=== PATIENT | female | born 1995 | race Two or more races ===

== ENCOUNTER 2023-03-04 15:06 | Emergency (ER) | payer BC, SELFPAY ==
[2023-03-04 15:12] VITALS: BP 124/90; PULSE 102; RESP 20; TEMP 37.2; O2SAT 99; BMI 25.2
--- NOTE | 2023-03-04 15:34 | US_ITS ---
[address] [address] Patient Name: LILLI COSBY MRN: [id number] date: 1995 Sex: F Assigned Patient Location: ER Current Patient Location: ER Accession/Order Number: [id number] Exam Date: 03/04/2023 16:00 Report Date: 03/04/2023 16:40 At the request of: DION POSADA Procedure: US OB transvaginal EXAMINATION: US OB transvaginal HISTORY: bleeding COMPARISON: No relevant comparison available. FINDINGS: Najera intrauterine gestation Gestational sac: 8.4 mm CRL: 2.0 mm, 5 weeks 5 days Yolk sac: 2.5 mm Heart rate: 104 bpm Uterus: Normal, anteverted Cervix: Closed, 4.8 cm The right ovary is normal measuring 1.9 x 2.1 x 1.3 cm. The left ovary is normal measuring 3.5 x 1.6 x 2.0 cm. Clinical age: 6 weeks 1 day Clinical MELLY: 10/27/2023 Ultrasound age: 5 weeks 5 days Ultrasound MELLY: 10/30/2023 US/US OB transvaginal IMPRESSION: Viable najera intrauterine gestation measuring 5 weeks 5 days Electronically authenticated by: MARY CARMEN KAUFMAN Date: 03/04/2023 16:40
[2023-03-04 15:36] LABS: Bilirubin Urine NEGATIVE (NEGATIVE); Blood Urine MODERATE (NEGATIVE); Clarity Urine CLEAR (CLEAR); Color Urine LT. YELLOW (YELLOW); Glucose Urine UA NEGATIVE (NEGATIVE); Ketones Urine NEGATIVE (NEGATIVE); Leukocyte Esterase Urine SMALL (NEGATIVE); Nitrite Urine NEGATIVE (NEGATIVE); Protein Urine NEGATIVE (NEG/TRACE); Specific Gravity Urine <=1.005 (1.005-1.025); Urobilinogen Urine 0.2 EU/dL (0.2-1.0); pH Urine 6.5 (5.0-9.0)
--- NOTE | 2023-03-04 15:36 | ED.PREGNANC1 ---
HPI - General Chief complaint: Urogenital-Female Stated complaint: BLEED Time Seen by Provider: 03/04/23 15:27 Source: patient Mode of arrival: walk-in Limitations: no limitations History of Present Illness HPI Narrative: 28-year-old female who states that she is 6 weeks as confirmed by home test presents for bloody streaks that she noticed on the toilet paper when she used the restroom today. She has not noticed any blood outside of this. She noticed some lower abdominal cramping earlier today, but this has resolved. Denies risk of STD. Denies back pain, dysuria, n/v Related Data Home Medications Medication Instructions Recorded Confirmed levothyroxine 75 mcg capsule 75 mcg PO DAILY 03/04/23 03/04/23 Allergies Allergy/AdvReac Type Severity Reaction Status Date / Time No Known Drug Allergies Allergy Verified 03/04/23 15:10 Review of Systems ROS Status of ROS 10 or more systems reviewed and unremarkable except as noted in history and below PFSH PFSH Social History Smoking status: Never smoker Exam Narrative Exam Narrative: General: A&Ox3, no distress, talking in full an complete sentences skin: warm, dry, intact head: normocephalic, atraumatic eyes: EOMI nose: nares patent neck: supple, trachea midline respiratory: non-labored extremities: FROM x 4, strength +5/5 abd: soft, NT spine: NT, normal ROM, no step offs neuro: A&Ox3 psych: appropriate mood and affect, cooperative Constitutional Vital Signs, click to edit/add: Last Vital Signs Temp 99 F 03/04/23 15:12 Pulse 102 H 03/04/23 15:12 Resp 20 03/04/23 15:12 BP 124/90 03/04/23 15:12 Pulse Ox 99 03/04/23 15:12 O2 Del Method Room Air 03/04/23 15:12 Course Vital Signs Vital signs: Vital Signs Temperature 99 F 03/04/23 15:12 Pulse Rate 102 H 03/04/23 15:12 Respiratory Rate 20 03/04/23 15:12 Blood Pressure 124/90 03/04/23 15:12 Pulse Oximetry 99 03/04/23 15:12 Oxygen Delivery Method Room Air 03/04/23 15:12 Temperature 99 F 03/04/23 15:12 Pulse Rate 102 H 03/04/23 15:12 Respiratory Rate 20 03/04/23 15:12 Blood Pressure 124/90 03/04/23 15:12 Pulse Oximetry 99 03/04/23 15:12 Oxygen Delivery Method Room Air 03/04/23 15:12 MDM - OB/Uterine Contractions MDM Narrative Medical decision making narrative: No significant lab abnormalities. UA positive for blood. Negative for UTI and does appear contaminated. Blood type O positive. Single intrauterine measuring 5 weeks and 5 days with a heart rate of 104. She has appoint with her [employer] tomorrow. Afebrile, not tachypneic, not tachycardic, not hypoxic, non toxic appearing and ambulating at baseline and hemodynamically stable to be d/c. answered all questions. pt in agreement with tx. educated when to return to ER. Lab Data Labs: Lab Results 03/04/23 03/04/23 03/04/23 Range/Units 15:22 15:31 15:45 WBC 7.8 (4.0-11.0) 10^3/uL RBC 4.60 (4.20-5.40) 10^6/uL Hgb 13.5 (12.0-16.0) g/dL Hct 41.3 (36.0-48.0) % MCV 89.8 (81.0-99.0) fL MCH 29.3 (26.7-34.0) pg MCHC 32.7 (29.9-35.2) g/dL RDW 14.0 (11.0-15.0) % Plt Count 313 (150-450) 10^3/uL MPV 9.3 L (9.5-13.5) fL Neut % (Auto) 67.2 (43.0-75.0) % Lymph % (Auto) 21.2 (20.5-60.0) % [place] % (Auto) 9.6 (1.7-12.0) % Eos % (Auto) 1.4 (0.9-7.0) % Baso % (Auto) 0.3 (0.2-2.0) % Neut # (Auto) 5.3 (1.4-6.5) 10^3/uL Lymph # (Auto) 1.7 (1.2-3.8) 10^3/uL [place] # (Auto) 0.8 (0.3-0.8) 10^3/uL Eos # (Auto) 0.1 (0.0-0.7) 10^3/uL Baso # (Auto) 0.0 (0.0-0.1) 10^3/uL Abs Immat Gran (auto) 0.02 (0.00-0.03) 10^3/uL Imm/Tot Granulo (auto) 0.3 (0.0-0.5) % Sodium 138 (136-145) mmol/L Potassium 3.6 (3.5-5.1) mmol/L Chloride 103 (98-107) mmol/L Carbon Dioxide 24.2 (21.0-32.0) mmol/L Anion Gap 14.4 BUN 8.0 (7.0-18.0) mg/dL Creatinine 0.62 (0.55-1.02) mg/dL Est GFR ( Amer) >60 (>=60) Est GFR (Non-Af Amer) >60 (>=60) BUN/Creatinine Ratio 12.9 Glucose 92 (74-106) mg/dL Calcium 8.7 (8.5-10.1) mg/dL Magnesium 2.2 (1.8-2.4) mg/dL Total Bilirubin 0.3 (0.2-1.0) mg/dL AST 14 L (15-37) U/L ALT 19 (14-59) U/L Alkaline Phosphatase 100 (46-116) U/L Total Protein 8.1 (6.4-8.2) g/dL Albumin 3.9 (3.4-5.0) g/dL Globulin 4.2 g/dL Albumin/Globulin Ratio 0.9 HCG, Quant 9525 mIU/mL Urine Color Lt. yellow (YELLOW) Urine Clarity Clear (CLEAR) Urine pH 6.5 (5.0-9.0) Ur Specific [place] <=1.005 A (1.005-1.025) Urine Protein Negative (NEG/TRACE) mg/dL Urine Glucose (UA) Negative (NEGATIVE) mg/dL Urine Ketones Negative (NEGATIVE) mg/dL Urine Occult Blood Moderate A (NEGATIVE) Urine Nitrite Negative (NEGATIVE) Urine Bilirubin Negative (NEGATIVE) Urine Urobilinogen 0.2 (0.2-1.0) EU/dL Ur Leukocyte Esterase Small A (NEGATIVE) Urine RBC 2-5 A (0-2) #/HPF Urine WBC 5-10 A (NONE SEEN) #/HPF Ur Squamous Epith Cells Moderate A (NONE/RARE) #/LPF Urine Crystals None seen (None Seen) #/HPF Urine Bacteria Trace A (NONE SEEN) #/HPF Urine Casts None seen (NONE SEEN) #/LPF Urine Mucus None seen (NONE SEEN) Ur Culture Indicated? Yes Urine HCG, Qual Positive A (NEGATIVE) Blood Type O Positive Discharge Plan Discharge Chief Complaint: Urogenital-Female Clinical Impression: Vaginal bleeding during Patient Disposition: Home, Self-Care Time of Disposition Decision: 16:46 Condition: Good Mode of Transportation: Private Vehicle Prescriptions / Home Meds: No Action levothyroxine 75 mcg capsule 75 mcg PO DAILY Instructions: Non-Threatening First Trimester Vaginal Bleed (ED) Stand Alone Forms: Portal Instructions Referrals: Physician,Non-Staff, MD [Primary Care Provider] - 1 week
[2023-03-04 15:37] LABS: Urine Microscopic Indicated YES
[2023-03-04 15:37] LABS: HCG Qualitative Urine* POSITIVE (NEGATIVE)
[2023-03-04 15:45] LABS: Bacteria Urine TRACE #/HPF (NONE SEEN); Crystals Seen? None Seen #/HPF (None Seen); Mucus Urine NONE SEEN (NONE SEEN); Squamous Epithelial Cell Urine MODERATE #/LPF (NONE/RARE)
[2023-03-04 15:46] LABS: Cast Seen? NONE SEEN #/LPF (NONE SEEN); Urine Culture Indicated YES
[2023-03-04 15:53] LABS: Basophils Percent Auto 0.3 % (0.2-2.0); Eosinophils Absolute Auto 0.1 10^3/uL (0.0-0.7); Eosinophils Percent Auto 1.4 % (0.9-7.0); Hematocrit 41.3 % (36.0-48.0); Hemoglobin 13.5 g/dL (12.0-16.0); Immature Granulocytes Abs Auto 0.02 10^3/uL (0.00-0.03); Immature Granulocytes Pct Auto 0.3 % (0.0-0.5); Lymphocytes Absolute Auto 1.7 10^3/uL (1.2-3.8); Lymphocytes Percent Auto 21.2 % (20.5-60.0); Mean Corpuscular HGB Conc 32.7 g/dL (29.9-35.2); Mean Corpuscular Hemoglobin 29.3 pg (26.7-34.0); Mean Corpuscular Volume 89.8 fL (81.0-99.0); Mean Platelet Volume 9.3 fL (9.5-13.5); Monocytes Absolute Auto 0.8 10^3/uL (0.3-0.8); Monocytes Percent Auto 9.6 % (1.7-12.0); Neutrophils Absolute Auto 5.3 10^3/uL (1.4-6.5); Neutrophils Percent Auto 67.2 % (43.0-75.0); Platelet Count 313 10^3/uL (150-450); White Blood Count 7.8 10^3/uL (4.0-11.0)
[2023-03-04 16:07] LABS: Alanine Aminotransferase 19 U/L (14-59); Albumin Globulin Ratio 0.9; Albumin Level 3.9 g/dL (3.4-5.0); Alkaline Phosphatase 100 U/L (46-116); Anion Gap 14.4; Aspartate Amino Transferase 14 U/L (15-37); BUN Creatinine Ratio 12.9; Bilirubin Total 0.3 mg/dL (0.2-1.0); Calcium 8.7 mg/dL (8.5-10.1); Carbon Dioxide 24.2 mmol/L (21.0-32.0); Chloride 103 mmol/L (98-107); Estimated GFR (African America >60 (>=60); Estimated GFR (Non-African Ame >60 (>=60); Globulin 4.2 g/dL; Glucose 92 mg/dL (74-106); Magnesium 2.2 mg/dL (1.8-2.4); Potassium 3.6 mmol/L (3.5-5.1); Sodium 138 mmol/L (136-145); Total Protein 8.1 g/dL (6.4-8.2)
[2023-03-04 16:29] LABS: HCG Quantitative 9525 mIU/mL
== END 2023-03-04 17:42 | disposition home or self-care (01) ==
PROVIDERS: Physician Assistant; Emergency Provider Emergency Medicine
DX: O20.9 Hemorrhage in early pregnancy, unspecified (principal)
CPT/HCPCS: 36415; 76817; 80053; 81001; 83735; 84702; 84703; 85025; 86900; 86901; 87086; 99285

== ENCOUNTER 2023-08-04 20:31 | Observation (INO) | payer BC, SELFPAY ==
[2023-08-04 21:05] LABS: Bilirubin Urine NEGATIVE (NEGATIVE); Blood Urine TRACE-I (NEGATIVE); Clarity Urine CLEAR (CLEAR); Color Urine YELLOW (YELLOW); Glucose Urine UA NEGATIVE (NEGATIVE); Ketones Urine 15 mg/dL (NEGATIVE); Leukocyte Esterase Urine SMALL (NEGATIVE); Nitrite Urine NEGATIVE (NEGATIVE); Protein Urine TRACE mg/dL (NEG/TRACE); Specific Gravity Urine 1.025 (1.005-1.025)
[2023-08-04 21:06] LABS: Urine Microscopic Indicated YES
[2023-08-04 21:07] VITALS: BP 113/75; PULSE 112
[2023-08-04 21:25] LABS: Bacteria Urine NONE SEEN #/HPF (NONE SEEN); Cast Seen? NONE SEEN #/LPF (NONE SEEN); Crystals Seen? None Seen #/HPF (None Seen); Mucus Urine SMALL (NONE SEEN); RBC Urine 0-2 #/HPF (0-2); Squamous Epithelial Cell Urine FEW #/LPF (NONE/RARE); WBC Urine 0-2 #/HPF (NONE SEEN)
--- NOTE | 2023-08-04 21:36 | US_ITS ---
[address] [address] Patient Name: LILLI COSBY MRN: [id number] date: 1995 Sex: F Assigned Patient Location: [facility] Current Patient Location: [facility] Accession/Order Number: [id number] Exam Date: 08/04/2023 22:20 Report Date: 08/04/2023 22:49 At the request of: GARRETT MAHMOOD Procedure: US OB cervical length EXAM: US OB cervical length HISTORY: contractions COMPARISON: None. TECHNIQUE: Transvaginal ultrasound of the gravid uterus was performed using Doppler. FINDINGS: Transabdominal ultrasound demonstrates a gravid uterus with the fetus in cephalic position. The cervix is closed measuring up to 4.8 cm. The placental tip is approximately 3.1 cm from the internal cervical os. Of note, measurements were not obtained. cardiac activity is noted at a rate of 132 beats per minute. US/US OB cervical length IMPRESSION: 1. Single live intrauterine gestation in cephalic position with a heart rate 132 bpm. Electronically authenticated by: Ana CAMACHO Date: 08/04/2023 22:49
[2023-08-04 22:18] LABS: Basophils Percent Auto 0.3 % (0.2-2.0); Eosinophils Percent Auto 0.2 % (0.9-7.0); Hematocrit 38.8 % (36.0-48.0); Hemoglobin 11.7 g/dL (12.0-16.0); Immature Granulocytes Abs Auto 0.04 10^3/uL (0.00-0.03); Immature Granulocytes Pct Auto 0.4 % (0.0-0.5); Lymphocytes Absolute Auto 1.2 10^3/uL (1.2-3.8); Lymphocytes Percent Auto 11.6 % (20.5-60.0); Mean Corpuscular HGB Conc 30.2 g/dL (29.9-35.2); Mean Corpuscular Hemoglobin 27.9 pg (26.7-34.0); Mean Corpuscular Volume 92.4 fL (81.0-99.0); Mean Platelet Volume 9.1 fL (9.5-13.5); Monocytes Absolute Auto 0.8 10^3/uL (0.3-0.8); Monocytes Percent Auto 7.9 % (1.7-12.0); Neutrophils Absolute Auto 8.4 10^3/uL (1.4-6.5); Neutrophils Percent Auto 79.6 % (43.0-75.0); Platelet Count 347 10^3/uL (150-450); Red Cell Distribution Width 13.8 % (11.0-15.0); White Blood Count 10.5 10^3/uL (4.0-11.0)
[2023-08-04 22:34] VITALS: BP 113/75
[2023-08-04] MEDS: NIFEdipine 10 MG CAPSULE 20 MG PO (22:34)
[2023-08-04] MEDS: 0.9 % SODIUM CHLORIDE 1,000 ML 1000 ML IV (22:52)
[2023-08-04 23:11] VITALS: BP 105/56; PULSE 136
[2023-08-04] MEDS: 0.9 % SODIUM CHLORIDE 1,000 ML 150 ML IV (23:52)
[2023-08-05 00:53] VITALS: BP 101/60; PULSE 112; TEMP 35.9
[2023-08-05] MEDS: 0.9 % SODIUM CHLORIDE 1,000 ML 150 ML IV (06:25)
[2023-08-05 06:35] VITALS: BP 97/56; PULSE 92
[2023-08-05 07:47] VITALS: RESP 16; TEMP 36.4
[2023-08-05 07:57] VITALS: BP 90/54; PULSE 85
[2023-08-05 08:02] VITALS: RESP 16; TEMP 36.4
== END 2023-08-05 09:51 | disposition home or self-care (01) ==
PROVIDERS: Admitting Provider Obstetrics & Gynecology; Visit Provider Obstetrics & Gynecology
DX: O47.9 False labor, unspecified (principal); O26.899 Other specified pregnancy related conditions, unspecified trimester; R31.9 Hematuria, unspecified; M54.9 Dorsalgia, unspecified; Z3A.00 Weeks of gestation of pregnancy not specified
CPT/HCPCS: 36415; 59025; 76817; 81001; 85025; G0378; G0379

== ENCOUNTER 2023-08-21 07:15 | Outpatient (OUT) | payer BC, SELFPAY ==
--- OUTSIDE RECORDS SUMMARY | 2023-08-21 07:35 | XMS_ITS | CCD ---
Author Name Unknown Address [address] [place], [place] [address] Organization [facility] Care Team Providers Care Plant Operator/Shift Supervisor Name Role Phone ANGE LOUIS Referring Unavailable RUMSCHLAG, MANASA K Primary Care Unavailable GARRETT GODOY Referring Unavailable RUMSCHLAG, MANASA K Primary Care Unavailable BRYAN LANGFORD Referring Unavailable RUMSCHLAG, MANASA K Primary Care Unavailable Rumschlag Manasa PATIÑO Primary Care Provider GARRETT GODOY Attending Unavailable ERICKA TINEO Attending Unavailable Medications Current Medications Medication Drug Class(es) Dates Sig (Normalized) Sig (Original) levothyroxine sodium 0.075 mg oral tablet (3 sources) l-Thyroxine take 1 tablet by mouth before mealtime levothyroxine (Synthroid, Levoxyl) 75 MCG tablet Take 75 mcg by mouth in the morning. Take before meals. 0 Active metoclopramide 10 mg oral tablet (3 sources) Dopamine-2 Receptor Antagonist End: 08-06-2023 take 1 tablet by mouth in the morning, then take 1 tablet by mouth in the evening, then take 1 tablet by mouth at bedtime metoclopramide (Reglan) 10 MG tablet Take 10 mg by mouth in the morning and 10 mg in the evening and 10 mg before bedtime. 0 08/06/2023 Discontinued (Therapy completed) Gxkqhxgq-Juq-Ek-FA ( 1 + IRON PO) (3 sources) Aijbsqyb-Frx-Mm-FA ( 1 + IRON PO) Take by mouth 0 Active Problems Problem Classification Problem Date Documented Date Episodic/Chronic Complications of surgical procedures or medical care (1 source) Postprocedural hypothyroidism; Translations: [Postprocedural hypothyroidism] Onset: 08-03-2023 Chronic Other complications of (1 source) Endocrine, nutritional and metabolic diseases complicating , second trimester; Translations: [Endocrine, nutritional and metabolic diseases complicating , second trimester] Onset: 08-03-2023 Episodic Other complications of (1 source) Endocrine, nutritional and metabolic diseases complicating , unspecified trimester; Translations: [Endocrine, nutritional and metabolic diseases complicating , unspecified trimester] Onset: 07-17-2023 Episodic Other complications of (1 source) Supervision of other high risk pregnancies, unspecified trimester; Translations: [Supervision of other high risk pregnancies, unspecified trimester] Onset: 06-16-2023 Episodic Other female genital disorders (2 sources) History of premature labor; Translations: [Personal history of pre-term labor] 08-06-2023 Episodic Other and delivery including normal (2 sources) Third trimester ; Translations: [Encounter for supervision of normal , unspecified, third trimester] 08-03-2023 Episodic Other screening for suspected conditions (not mental disorders or infectious disease) (3 sources) Encounter for screening for diabetes mellitus; Translations: [Encounter for other specified screening] Onset: 06-16-2023 Episodic Previous (1 source) Maternal care for unspecified type scar from previous delivery; Translations: [Maternal care for unspecified type scar from previous delivery] Onset: 06-16-2023 Episodic Thyroid disorders (1 source) Hypothyroidism, unspecified; Translations: [Hypothyroidism, unspecified] Onset: 07-17-2023 Chronic Results Test Name Value Interpretation Reference Range Facility Urinalysis macro (dipstick) panel (U)on 08-06-2023 Bilirubin, UA Negative Negative - 4(70) +++ mg/dL [facility] Blood, UA Positive Negative - 50 Efren/mcL [facility] Clarity, UA Clear [facility] Color, UA Yellow [facility] Glucose, UA Negative Negative - 1999(110) ++++ mg/dL [facility] Interpretation and review of laboratory results Abnormal [facility] Ketones, UA Negative Negative - 160(16) ++++ mg/dL [facility] Leukocytes, UA Positive Negative - 500+++ Luci/mcL [facility] Nitrite, UA Negative Negative - Positive [facility] pH, UA 6.5 5 - 9 [facility] Protein, UA Positive Negative - 1999(20) ++++ mg/dL [facility] Spec Grav, UA 1.030 1 - 1.03 [facility] Urobilinogen, UA 1.0 0.2 - 12 mg/dL [facility] (CLEAN/CATCH) UNEMPLOYMENT EXAMINER/JING RO IF IND.on 08-04-2023 BILIRUBIN URINE Negative [facility]GATIVE [facility] BLOOD URINE TRACE-I NEGATIVE [facility] Clarity (U) CLEAR CLEAR [facility] Color (U) YELLOW YELLOW [facility] GLUCOSE URINE UA Negative NEGATIVE mg/dL [facility] Interpretation and review of laboratory results Abnormal [facility] Healthcare Ketones Ql (U) 15 mg/dL Abnormal NEGATIVE [facility] Healt hcare Leukocyte esterase Test strip Ql (U) SMALL Abnormal NEGATIVE [facility] NITRITE URINE Negative NEGATIVE [facility] Health care pH (U) 6.0 [pH] 5.0 - 9.0 [facility] PROTEIN URINE TRACE NEG/TRACE mg/dL [facility] Healthcare SPECIFIC GRAVITY URINE 1.025 1.005 - 1.025 [facility] URINE MICROSCOPIC INDICATED YES [facility] UROBILINOGEN URINE 1.0 EU/dL 0.2 - 1.0 EU/dL [facility] Healthcar e FREE T3on 08-03-2023 Free T3 [Mass/Vol] 3.27 pg/mL Normal 2.50-3.90 [facility] Comment on above: Performed By: #### T KIRTI, 0 #### [facility] ([id number]) [address], [address] [place] [address] THYROID PROFILEon 08-03-2023 Free T4 [Mass/Vol] 0.66 ng/dL Normal 0.61-1.60 [facility] Comment on above: Performed By: #### T KIRTI, 3050 #### [facility] ([id number]) [address], [address] [place] [address] TSH 1.74 uIU/mL Normal 0.49-4.67 [facility] Comment on above: Performed By: #### T KIRTI, 0 #### [facility] ([id number]) [address], [address] [place] [address] CBC AND AUTO DIFFon 07-17-19 ABSOLUTE BASOPHIL 0.0 X10E9/L Normal 0.0-0.2 [facility] Comment on above: Performed By: #### Nilam BAILEY, 1504-0, 3016-3 #### [facility] ([id number]) [address], [address] [place] [address] ABSOLUTE NEUTROPHIL 7.1 X10E9/L High 1.5-6.6 [facility] Comment on above: Performed By: #### Nilam BAILEY, 1504-0, 3016-3 #### [facility] ([id number]) [address], [address] [place] [address] Basophils/100 WBC (Bld) 0.3 % Normal [facility] Comment on above: Performed By: #### Nilam BAILEY, 1504-0, 3016-3 #### [facility] ([id number]) [address], [address] [place] [address] Eosinophils (Bld) [#/Vol] 0.1 10*3/uL Normal 0.0-0.4 [facility] Comment on above: Performed By: #### Nilam BAILEY, 1504-0, 3016-3 #### [facility] ([id number]) [address], [address] [place] [address] Eosinophils/100 WBC (Bld) 1.0 % Normal [facility] Comment on above: Performed By: #### Nilam BAILEY, 1504-0, 3016-3 #### [facility] ([id number]) [address], [address] [place] [address] Erythrocyte distribution width (RBC) [Ratio] 14.1 % Normal 11.5-15.0 [facility] Comment on above: Performed By: #### Nilam BAILEY, 1504-0, 3016-3 #### [facility] ([id number]) [address], [address] [place] [address] Hematocrit (Bld) [Volume fraction] 34.5 % Low 35-47 [facility] Comment on above: Performed By: #### Nilam BAILEY, 1504-0, 3016-3 #### [facility] ([id number]) [address], [facility] [address] [place] [address] Hemoglobin (Bld) [Mass/Vol] 11.5 g/dL Low 11.7-15.5 [facility] Comment on above: Performed By: #### Nilam BAILEY, 1504-0, 3016-3 #### [facility] ([id number]) [address], [facility] [address] [place] [address] Lymphocytes (Bld) [#/Vol] 2.1 10*3/uL Normal 1.0-3.5 [facility] Comment on above: Performed By: #### Nilam BAILEY, 1504-0, 3016-3 #### [facility] ([id number]) [address], [facility] [address] [place] [address] Lymphocytes/100 WBC (Bld) 21.4 % Normal [facility] Comment on above: Performed By: #### Nilam BCA, 1504-0, 3016-3 #### [facility] ([id number]) [address], [facility] [address] [place] [address] MCH (RBC) [Entitic mass] 28.9 pg Normal 27-34 [facility] Comment on above: Performed By: #### Nilam BCA, 1504-0, 3016-3 #### [facility] ([id number]) [address], [facility] [address] [place] [address] MCHC (RBC) [Mass/Vol] 33.3 g/dL Normal 32-36 [facility] Comment on above: Performed By: #### Nilam BCA, 1504-0, 3016-3 #### [facility] ([id number]) [address], [address] [place] [address] MCV (RBC) [Entitic vol] 87 fL Normal 80-100 [facility] Comment on above: Performed By: #### Nilam BAILEY, 1504-0, 3016-3 #### [facility] ([id number]) [address], [address] [place] [address] Monocytes (Bld) [#/Vol] 0.6 10*3/uL Normal 0-0.9 [facility] Comment on above: Performed By: #### Nilam BAILEY, 1504-0, 3015-3 #### [facility] ([id number]) [address], [address] [place] [address] Monocytes/100 WBC (Bld) 6.1 % Normal [facility] Comment on above: Performed By: #### Nilam BAILEY, 1504-0, 3015-3 #### [facility] ([id number]) [address], [address] [place] [address] Neutrophils/100 WBC (Bld) 71.2 % Normal [facility] Comment on above: Performed By: #### Nilam BAILEY, 1504-0, 3015-3 #### [facility] ([id number]) [address], [address] [place] [address] Platelet mean volume (Bld) [Entitic vol] 7.8 fL Normal 7-12 [facility] Comment on above: Performed By: #### Nilam BAILEY, 1504-0, 3016-3 #### [facility] ([id number]) [address], [address] [place] [address] Platelets (Bld) [#/Vol] 374 10*3/uL Normal 150-450 [facility] Comment on above: Performed By: #### Nilam BAILEY, 1504-0, 3016-3 #### [facility] ([id number]) [address] [place] [address] RBC COUNT 3.97 X10E12/L Normal 3.80-5.20 [facility] Comment on above: Performed By: #### Nilam BAILEY, 1504-0, 3016-3 #### [facility] ([id number]) [address] [facility] [address] [place] [address] WBC (Bld) [#/Vol] 9.9 10*3/uL Normal 4.0-11.0 [facility] Comment on above: Performed By: #### Nilam BAILEY, 1504-0, 3016-3 #### [facility] ([id number]) [address] [facility] [address] [place] [address] Glucose 1 Hr post 50 g gluco se PO [Mass/Vol]on 07-17-2023 GLU 1H POST 50G LOAD 101 mg/dL Normal 65-139 [facility] Comment on above: Performed By: #### Nilam BAILEY, 1504-0, 3016-3 #### [facility] ([id number]) [address] [facility] [address] [place] [address] TSH Qnon 07-17-2023 TSH 2.24 uIU/mL Normal 0.49-4.67 [facility] Comment on above: Performed By: #### Nilam BAILEY, 1504-0, 3016-3 #### [facility] ([id number]) [address] [facility] [address] [place] [address] US thyroidon 02-14-2021 thyroid [facility] [place] [address] Ultrasound Report Signed Patient: Lilli Menendez MR#: [id number] 4 : 1995 Acct:[id number] Age/Sex: 26 / F ADM Date: 02/14/21 Loc: UL Room: Type: [facility] Attending Dr: Bryan Langford MD Ordering Provider: Bryan Langford MD Date of Service: 02/14/21 US/US thyroid: E89.0 Copies to: Bryan Langford MD THYROID ULTRASOUND CLINICAL DATA: History of hyperthyroidism and ablation COMPARISON: None The right thyroid lobe measures 4.6 x 1.2 x 0.9 cm. The left lobe measures 3.7 x 1.0 x 0.8 cm. The isthmus measures 2 - 3 mm. No discrete thyroid nodularity is seen. US/US thyroid IMPRESSION: Within normal limits Impression dictated by: Neisha Curry M.D.02/14/2021 2:49 PM Dictation Location: [place] [address] Tech: Ashley Dempsey Transcribed By: YANET 02/14/21 1449 Dictated By: Neisha Curry MD 02/14/21 1447 Signed By: 02/14/[address] [facility] Vital Signs Date Time Vital Sign Value Performing Clinician Faci lity 08-06-2023 09:41-0500 Body mass index (BMI) [Ratio] 28.93 kg/m2 Ericka VELARDE Work Phone: [facility] 08-06-2023 09:41-0500 Body weight 64.41 kg Ericka VELARDE Work Phone: [facility] 08-06-2023 09:41-0500 Diastolic blood pressure 74 mm[Hg] Ericka VELARDE Work Phone: [facility] 08-06-2023 09:41-0500 Systolic blood pressure 106 mm[Hg] Ericka VELARDE Work Phone: [facility] Healthcare Encounters Encounter Date Encounter Type Care Provider Facility Start: 08-06-2023 End: 08-06-2023 ambulatory ERICKA TINEO Not Available Start: 08-06-2023 End: 08-06-2023 flow sheet Ericka VELARDE Work Phone: [facility] OB Comment on above: Third trimester preg alea; History of labor Start: 08-04-2023 [facility] Result Encounter Garrett Jayne DO Work Phone: [facility] External Department Unsolicited Start: 08-04-2023 [facility] Result Encounter Garrett Jayne DO Work Phone: [facility] External Department Unsolicited Start: 08-03-2023 End: 08-04-2023 ambulatory BRYAN LANGFORD [facility] Start: 07-17-2023 End: 07-18-2023 ambulatory GARRETT GODOY [facility] Start: 07-09-2023 End: 07-09-2023 ambulatory GARRETT GODOY Not Available Start: 06-16-2023 End: 06-17-2023 ambulatory ABEER [facility] Procedures Date Procedure Procedure Detail Performing Clinician Start: 08-06-2023 Urnls dip stick/tabl et rgnt non-auto w/o micrscp Ericka VELARDE Work Phone: Start: 08-04-2023 [facility] UA (CLEAN/CATCH) UNEMPLOYMENT EXAMINER/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 Garrett Godoy DO Work Phone: Plan of Treatment Date Care Activity Detail Author Start: 08-20-2023 End: 08-20-2023 Patient encounter procedure 08/20/2023 10:50 AM EST Routine [facility] [address] [place] [id number] Garrett Godoy, DO [address] [place] [address] [facility] Start: 08-06-2023 End: 08-06-2024 US biophysical profile w non stress test US biophysical profile w non stress test Imaging Routine History of labor Expected: 08/06/2023 (Approximate), Expires: 08/06/2024 [facility] Comment on above: Expected: 08/06/2023 (Approximate), Expires: 08/06/2024 Start: 08-06-2023 End: 08-06-2024 US for US OB SCAN FOR GROWTH Imaging Routine History of labor Expected: 08/06/2023 (Approximate), Expires: 08/06/2024 [facility] Work Phone: Comment on above: Expected: 08/06/2023 (Approximate), Expires: 08/06/2024 Start: 08-06-2023 End: 08-06-2023 Patient encounter procedure 08/06/2023 9:30 AM EST Routine [facility] [address] [address] Ericka Tineo PA [address] [place] [address] Third trimester [facility] Comment on above: Third trimester preg alea Payers Date Payer Category Payer Unknown [id number] 2020 Unknown BCBS BCBS xxxxxx [id number] 2020-Present [phone] [address] [place] [address] [id number] 1995 Unknown [id number] 1995 Unknown [id number] 1995 Unknown [id number] 1995 Unknown [id number] 1996 Unknown [id number] Social History Date Type Detail Facility [facility] consumption [facility] Start: 02-03-2023 [facility] Start: 1995 Sex Assigned At Not on file [facility] Gender identity Not on file [facility] History of Present illness Narrative 08-06-2023 SYD Mercer - 08/06/2023 9:30 AM EST Note Date & Type Note Facility 08-06-2023 History of Presen t illness Narrative Reason for Appointment: Patient ID: Lilli Menendez is a 28 y.o. female who presents for Routine Visit Patient presents today for Return OB appointment. Current Medications: has a current medication list which includes the following prescription(s): levothyroxine and xksvhkdy-rib-wo-fa. Medical History: Active Ambulatory Problems Diagnosis Date Noted No Active Ambulatory Problems Resolved Ambulatory Problems Diagnosis Date Noted No Resolved Ambulatory Problems No Additional Past Medical History No family history on file. Social History Tobacco Use Smoking status: Not on file Smokeless tobacco: Not on file Substance Use Topics Alcohol use: Not on file Drug use: Not on file Past Surgical History: Procedure Laterality Date SECTION, CLASSIC 07/29/2019 No Known Allergies Review of Systems: Review of Systems Constitutional: Negative. HENT: Negative. Eyes: Negative. Respiratory: Negative. Cardiovascular: Negative. Gastrointestinal: Negative. Genitourinary: Negative. Musculoskeletal: Negative. Skin: Negative. Neurological: Negative. All other systems reviewed and are negative. Hematological: Negative. Endocrine: Negative. Allergic/Immunologic: Negative. Objective Physical Exam Constitutional: Appearance: Normal appearance. She is normal weight. HENT: Head: Normocephalic. Nose: Nose normal. Mouth/Throat: Mouth: Mucous membranes are moist. Cardiovascular: Rate and Rhythm: Normal rate. Pulses: Normal pulses. Pulmonary: Effort: Pulmonary effort is normal. Breath sounds: Normal breath sounds. Abdominal: General: Bowel sounds are normal. Palpations: Abdomen is soft. Musculoskeletal: General: Normal range of motion. Cervical back: Normal range of motion. Neurological: General: No focal deficit present. Mental Status: She is alert and oriented to person, place, and time. Skin: General: Skin is warm and dry. Psychiatric: Mood and Affect: Mood normal. Behavior: Behavior normal. Thought Content: Thought content normal. Judgment: Judgment normal. Vitals and nursing note reviewed. Exam conducted with a branch specialist present. Vitals: Estimated body mass index is 28.93 kg/m as calculated from the following: Height as of 07/07/23: 4' 10.75 . Weight as of this encounter: 142 lb. BP: 106/74 Patient's last menstrual period was 01/20/2023. Assessment/Plan Encounter Diagnoses Name Primary? Third trimester History of labor Patient presents today for a routine obstetrics appointment. Patient is currently 28w2d with a Estimated Date of Delivery: 10/27/23. Pt has history of labor at 32 weeks. We will give orders to give celestone at 30 weeks and start nst and bpp at 30 weeks. Pt seen by myself and DR Godoy, pt questions and concerns discussed. Pt doing well at this time and will return in 2 weeks. Patient presents today for a routine obstetrics appointment. Patient is currently 28w2d . Patient states she is doing well but has complaints of being tired due to current . Patient has verbalizes frequent movement. labor precautions was discussed/given and patient was instructed to perform kick counts three times a day. Follow Up: Patient is to return to office in 2 week for routine OB appointment. Documented by SYD Mercer on behalf of: SYD Mercer documented in this encounter [facility] Evaluation note Note Date & Type Note Facility Evaluation note Diagnosis Third trimester state, incidental History of labor documented in this encounter [facility] Summary Purpose Family History No Family History Records FoundNo Family History Records FoundNo Family History Records Found Advance Directives No Advanced Directives Records FoundNo Advanced Directives Records FoundNo Advanced Directives Records Found Additional Source Comments INFORMATION SOURCE (unrecogn ized section and content) DATE CREATED AUTHOR 07/15/2021 [facility] DATE CREATED AUTHOR AUTHOR'S ORGANIZ ATION 08/04/2023 [facility] DATE CREATED AUTHOR AUTHOR'S ORGANIZ ATION 08/08/2023 [facility] dical Specialists [facility] Care Teams (unrecognized sec tion and content) Plant Operator/Shift Supervisor Relationship Specialty Start Date End Date Manasa Soni DO [address] [place] [address] PCP - General Family Medicine 07/09/23 Plant Operator/Shift Supervisor Relationship Specialty Start Date End Date Manasa Soni DO [address] [place] [address] PCP - General Family Medicine 07/09/23 Reason for Visit (unrecogniz ed section and content) Reason Comments Routine Visit FOR RECORDS PERTAINING TO PATIENTS WHO ARE OR HAVE BEEN ENROLLED IN A CHEMICAL DEPENDENCY/SUBSTANCEABUSE PROGRAM, SOME INFORMATION MAY BE OMITTED. This clinical summary was aggregated from multiple sources. Caution should be exercised in using it in the provision of clinical care. This summary normalizes information from multiple sources, and as a consequence, information in this document may materially change the coding, format and clinical context of patient data. In addition, data may be omitted in some cases. CLINICAL DECISIONS SHOULD BE BASED ON THE PRIMARY CLINICAL RECORDS. [facility] [facility]. provides no warranty or guarantee of the accuracy or completeness of information in this document.
--- NOTE | 2023-08-21 11:16 | US_ITS ---
[address] [address] Patient Name: LILLI COSBY MRN: [id number] date: 1995 Sex: F Assigned Patient Location: [facility] Current Patient Location: [facility] Accession/Order Number: [id number] Exam Date: 08/21/2023 11:23 Report Date: 08/21/2023 12:36 At the request of: GARRETT MAHMOOD Procedure: US OB growth EXAMINATION: US OB growth HISTORY: HISTORY OF PRE TERM LABOR Z87.51 COMPARISON: No relevant comparison available. FINDINGS: Heart Rate: 148.4 bpm Amniotic Fluid Volume: 16.5 cm Number: 1.0 Position: Cephalic presentation, longitudinal lie Maximum Vertical Pocket: 5.5 cm cm 4.9 cm cm 4.9 cm cm 1.2 cm cm BIOMETRY: BPD: 7.7 cm cm; 30 weeks 6 days; 50% HC: 28.7 cmcm; 31 weeks 4 days , 46% AC: 26.3 cm cm; 30 weeks 3 days, 45% FL: 5.8 cm cm; 30 weeks 1 days; 29.6 % % EFW: 1584.2 grams, 3 lbs. 8 oz., 39% FL/AC: 22.0 FL/BPD: 75.2 HC/AC: 1.1 GESTATIONAL AGE: Age by EDC: 30 weeks 3 days MELLY by EDC: 10/27/2023 Age by US: 30 weeks 5 days MELLY by US: 10/25/2023 US/US OB growth IMPRESSION: Normal interval growth Electronically authenticated by: MARY CARMEN KAUFMAN Date: 08/21/2023 12:36
--- NOTE | 2023-08-21 11:16 | US_ITS ---
[address] [address] Patient Name: LILLI COSBY MRN: [id number] date: 1995 Sex: F Assigned Patient Location: [facility] Current Patient Location: [facility] Accession/Order Number: [id number] Exam Date: 08/21/2023 11:23 Report Date: 08/21/2023 12:35 At the request of: GARRETT MAHMOOD Procedure: US OB BPP w non-stress EXAMINATION: US OB BPP w non-stress HISTORY: HISTORY OF PRE TERM LABOR Z87.51 COMPARISON: No relevant comparison available. TECHNIQUE: Ultrasound biophysical profile was performed in the radiology department. non-reactive stress testing was performed by nursing staff in the birthing center. FINDINGS: BREATHING MOVEMENTS: 2.0 GROSS BODY MOVEMENTS: 2.0 TONE: 2.0 QUALITATIVE AMNIOTIC FLUID VOLUME: 2.0 PRESENTATION: CEPHALIC HEART RATE: 148.4 bpm H.B./min AMNIOTIC FLUID VOLUME: 16.5 cm cm GESTATIONAL AGE: 30 weeks 3 days CONCLUSION: Total biophysical profile score: 8.0 Electronically authenticated by: MARY CARMEN KAUFMAN Date: 08/21/2023 12:35
[2023-08-21 12:05] VITALS: BP 105/69; PULSE 89
[2023-08-21] MEDS: BETAMETHASONE ACE/BETAMETHASONE SOD PHOS 30 MG/5 ML 12 MG IM (12:44)
--- NOTE | 2023-08-21 12:51 | PC.NURSE ---
Celestone 12 mg IM to R gluteous, patient tolerated well, discharged home in stable condition
== END 2023-08-21 12:54 | disposition home or self-care (01) ==
LOC: US 07:33 → FBC 12:02
PROVIDERS: Visit Provider Obstetrics & Gynecology
DX: Z87.51 Personal history of pre-term labor (principal); Z3A.30 30 weeks gestation of pregnancy
CPT/HCPCS: 76816; 76818; J0702

== ENCOUNTER 2023-08-22 12:37 | Outpatient (OUT) | payer BC, SELFPAY ==
--- OUTSIDE RECORDS SUMMARY | 2023-08-22 12:40 | XMS_ITS | CCD ---
Author Name Unknown Address [address] [place], [place] [id number] Organization [facility] Care Team Providers Care Dope And Fabric Worker Name Role Phone ANGE LOUIS Referring Unavailable [...] before bedtime. 0 08/06/2023 Discontinued (Therapy completed) Zwmcktqe-Ems-Db-FA ( 1 + IRON PO) (3 sources) Lpuhluav-Std-Qh-FA ( 1 + IRON PO) Take by [...] UA Negative Negative - 4(70) +++ mg/dL [facility] Blood, UA Positive Negative - 50 Efren/mcL [facility] Clarity, UA Clear [facility], UA Yellow [facility] Glucose, UA Negative Negative - 1999(110) ++++ mg/dL [facility] Interpretation and review of laboratory results Abnormal [facility] Ketones, UA Negative Negative - 160(16) ++++ mg/dL [facility] Leukocytes, UA Positive Negative - 500+++ Luci/mcL [facility] Nitrite, UA Negative Negative - Positive [facility] pH, UA 6.5 5 - 9 [facility] Protein, UA Positive Negative - 1999(20) ++++ mg/dL [facility] Spec Grav, UA 1.030 1 - 1.03 [facility] Urobilinogen, UA 1.0 0.2 - 12 mg/dL [facility] (CLEAN/CATCH) CAT SCAN TECHNOLOGIST/JING RO IF IND.on 08-04-2023 BILIRUBIN URINE Negative NEGATIVE [facility] BLOOD URINE TRACE-I NEGATIVE [facility] Clarity (U) CLEAR CLEAR [facility] Color (U) YELLOW YELLOW [facility] GLUCOSE URINE UA Negative NEGATIVE mg/dL [facility] Interpretation and review of laboratory results Abnormal [facility] Ketones Ql (U) 15 mg/dL Abnormal NEGATIVE [facility] Leukocyte esterase Test strip Ql (U) SMALL Abnormal NEGATIVE [facility] NITRITE URINE Negative NEGATIVE [facility] pH (U) 6.0 [pH] 5.0 - 9.0 [facility] PROTEIN URINE TRACE NEG/TRACE mg/dL [facility] SPECIFIC GRAVITY URINE 1.025 1.005 - 1.025 [facility] URINE MICROSCOPIC INDICATED YES [facility] UROBILINOGEN URINE 1.0 EU/dL 0.2 - 1.0 EU/dL [facility] FREE T3on 08-03-2023 Free T3 [Mass/Vol] 3.27 pg/mL Normal 2.50-3.90 [facility] Comment on above: Performed By: #### T KIRTI, 0 #### [facility] ([id number]) [address], [address] [place] [address] THYROID PROFILEon 08-03-2023 Free T4 [Mass/Vol] 0.66 ng/dL Normal 0.61-1.60 [facility] Comment on above: Performed By: #### T KIRTI, 3050 #### [facility] ([id number]) [address], [address] [place] [address] TSH 1.74 uIU/mL Normal 0.49-4.67 [facility] Comment on above: Performed By: #### T KIRTI, 0 #### [facility] ([id number]) [address], [address] [place] [address] CBC AND AUTO DIFFon 07-17-19 ABSOLUTE BASOPHIL 0.0 X10E9/L Normal 0.0-0.2 [facility] Comment on above: Performed By: #### Nilam BAILEY, 1504-0, 3016-3 #### [facility] ([id number]) [address], [address] [place] [address] ABSOLUTE NEUTROPHIL 7.1 X10E9/L High 1.5-6.6 [facility] Comment on above: Performed By: #### Nilam BAILEY, 1504-0, 3016-3 #### [facility] ([id number]) [address], [address] [place] [address] Basophils/100 WBC (Bld) 0.3 % Normal [facility] Comment on above: Performed By: #### Nilam BAILEY, 1504-0, 3016-3 #### [facility] ([id number]) [address], [address] [place] [address] Eosinophils (Bld) [#/Vol] 0.1 10*3/uL Normal 0.0-0.4 [facility] Comment on above: Performed By: #### Nilam BAILEY, 1504-0, 3016-3 #### [facility] ([id number]) [address], [address] [place] [address] Eosinophils/100 WBC (Bld) 1.0 % Normal [facility] Comment on above: Performed By: #### Nilam BAILEY, 1504-0, 3016-3 #### [facility] ([id number]) [address], [address] [place] [address] Erythrocyte distribution width (RBC) [Ratio] 14.1 % Normal 11.5-15.0 [facility] Comment on above: Performed By: #### Nilam BAILEY, 1504-0, 3016-3 #### [facility] ([id number]) [address], [address] [place] [address] Hematocrit (Bld) [Volume fraction] 34.5 % Low 35-47 [facility] Comment on above: Performed By: #### Nilam BAILEY, 1504-0, 3016-3 #### [facility] ([id number]) [address], [facility] [address] [place] [address] Hemoglobin (Bld) [Mass/Vol] 11.5 g/dL Low 11.7-15.5 [facility] Comment on above: Performed By: #### Nilam BAILEY, 1504-0, 3016-3 #### [facility] ([id number]) [address], [facility] [address] [place] [address] Lymphocytes (Bld) [#/Vol] 2.1 10*3/uL Normal 1.0-3.5 [facility] Comment on above: Performed By: #### Nilam BAILEY, 1504-0, 3016-3 #### [facility] ([id number]) [address], [facility] [address] [place] [address] Lymphocytes/100 WBC (Bld) 21.4 % Normal [facility] Comment on above: Performed By: #### Nilam BCA, 1504-0, 3016-3 #### [facility] ([id number]) [address], [facility] [address] [place] [address] MCH (RBC) [Entitic mass] 28.9 pg Normal 27-34 [facility] Comment on above: Performed By: #### Nilam BCA, 1504-0, 3016-3 #### [facility] ([id number]) [address], [facility] [address] [place] [address] MCHC (RBC) [Mass/Vol] 33.3 g/dL Normal 32-36 [facility] Comment on above: Performed By: #### Nilam BCA, 1504-0, 3016-3 #### [facility] ([id number]) [address], [address] [place] [address] MCV (RBC) [Entitic vol] 87 fL Normal 80-100 [facility] Comment on above: Performed By: #### Nilam BAILEY, 1504-0, 3016-3 #### [facility] ([id number]) [address], [address] [place] [address] Monocytes (Bld) [#/Vol] 0.6 10*3/uL Normal 0-0.9 [facility] Comment on above: Performed By: #### Nilam BAILEY, 1504-0, 3015-3 #### [facility] ([id number]) [address], [address] [place] [address] Monocytes/100 WBC (Bld) 6.1 % Normal [facility] Comment on above: Performed By: #### Nilam BAILEY, 1504-0, 3015-3 #### [facility] ([id number]) [address], [address] [place] [address] Neutrophils/100 WBC (Bld) 71.2 % Normal [facility] Comment on above: Performed By: #### Nilam BAILEY, 1504-0, 3015-3 #### [facility] ([id number]) [address], [address] [place] [address] Platelet mean volume (Bld) [Entitic vol] 7.8 fL Normal 7-12 [facility] Comment on above: Performed By: #### Nilam BAILEY, 1504-0, 3016-3 #### [facility] ([id number]) [address], [address] [place] [address] Platelets (Bld) [#/Vol] 374 10*3/uL Normal 150-450 [facility] Comment on above: Performed By: #### Nilam BAILEY, 1504-0, 3016-3 #### [facility] ([id number]) [address] [place] [address] RBC COUNT 3.97 X10E12/L Normal 3.80-5.20 [facility] Comment on above: Performed By: #### Nilam BAILEY, 1504-0, 3016-3 #### [facility] ([id number]) [address] [place] [address] WBC (Bld) [#/Vol] 9.9 10*3/uL Normal 4.0-11.0 [facility] Comment on above: Performed By: #### Nilam BAILEY, 1504-0, 3016-3 #### [facility] ([id number]) [address] [facility] [facility] [place] [address] Glucose 1 Hr post 50 g gluco se PO [Mass/Vol]on 07-17-2023 GLU 1H POST 50G LOAD 101 mg/dL Normal 65-139 [facility] Comment on above: Performed By: #### Nilam BAILEY, 1504-0, 3016-3 #### [facility] ([id number]) [address] [facility] [address] [place] [address] TSH Qnon 07-17-2023 TSH 2.24 uIU/mL Normal 0.49-4.67 [facility] Comment on above: Performed By: #### Nilam BAILEY, 1504-0, 3016-3 #### [facility] ([id number]) [address] [facility] [address] [place] [address] US thyroidon 02-14-2021 thyroid [place] [address] Ultrasound Report Signed Patient: Lilli Menendez MR#: [id number] 4 : 1995 Acct:[id number] Age/Sex: 26 / F ADM Date: 02/14/21 Loc: UL Room: Type: [facility] Attending Dr: Bryan Langford MD Ordering [...] Neisha Curry M.D.02/14/2021 2:49 PM Dictation Location: [place] [address] Tech: Ashley Dempsey Transcribed By: YANET 02/14/21 1449 Dictated By: Neisha Curry MD 02/14/21 1447 Signed By: 02/14/21 1449 [facility] Vital Signs Date Time Vital Sign Value Performing Clinician Faci lity 08-06-2023 09:41-0500 Body mass index (BMI) [Ratio] 28.93 kg/m2 Ericka VELARDE Work Phone: [facility] 08-06-2023 09:41-0500 Body weight 64.41 kg Ericka VELARDE Work Phone: [facility] 08-06-2023 09:41-0500 Diastolic blood pressure 74 mm[Hg] Ericka VELARDE Work Phone: [facility] 08-06-2023 09:41-0500 Systolic blood pressure 106 mm[Hg] Ericka VELARDE Work Phone: [facility] Encounters Encounter Date Encounter Type Care Provider Facility Start: 08-06-2023 End: 08-06-2023 ambulatory ERICKA TINEO Not Available Start: 08-06-2023 End: 08-06-2023 flow sheet Ericka VELARDE Work Phone: [facility] Comment on above: Third trimester preg alea; History of labor Start: 08-04-2023 [facility] Result Encounter Garrett Jayne DO Work Phone: [facility] External Department Unsolicited Start: 08-04-2023 [facility] Result Encounter Garrett Jayne DO Work Phone: [facility] External Department Unsolicited Start: 08-03-2023 End: 08-04-2023 ambulatory BRYAN LANGFORD [facility] Start: 07-17-2023 End: 07-18-2023 ambulatory GARRETT GODOY [facility] Start: 07-09-2023 End: 07-09-2023 ambulatory GARRETT GODOY Not Available Start: 06-16-2023 End: 06-17-2023 ambulatory ABEER [facility] Procedures Date Procedure Procedure Detail Performing Clinician Start: 08-06-2023 Urnls dip stick/tabl et rgnt non-auto w/o micrscp Ericka VELARDE Work Phone: Start: 08-04-2023 [facility] UA (CLEAN/CATCH) CAT SCAN TECHNOLOGIST/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 Garrett Godoy DO Work Phone: Plan of Treatment Date Care Activity Detail Author Start: 08-20-2023 End: 08-20-2023 Patient encounter procedure 08/20/2023 10:50 AM EST Routine [facility] [address] [place] [id number] Garrett Godoy, DO [address] [place] [address] [facility] Start: 08-06-2023 End: 08-06-2024 [...] AM EST Routine [facility] [address] [place] [address] Ericka Tineo PA [address] [place] [address] Third trimester [facility] Comment on above: Third trimester preg alea Payers Date Payer Category Payer Unknown [id number] 2020 Unknown BCBS BCBS xxxxxx [id number] 2020-Present [phone] [address] [place] [address] [id number] 1995 Unknown [id number] 1995 Unknown [id number] 1995 Unknown [id number] 1995 Unknown [id number] 1995 Unknown [id number] Social History Date Type Detail [facility] Start: [...] which includes the following prescription(s): levothyroxine and jgtrfvex-kvu-oy-fa. Medical History: Active Ambulatory Problems Diagnosis Date [...] nursing note reviewed. Exam conducted with a fire watchman present. Vitals: Estimated body mass index is [...] section and content) DATE CREATED AUTHOR 07/15/2021 [facility] DATE CREATED AUTHOR AUTHOR'S ORGANIZ ATION 08/04/2023 [facility] DATE CREATED AUTHOR AUTHOR'S ORGANIZ ATION 08/08/2023 [facility] Care Teams (unrecognized sec tion and content) Dope And Fabric Worker Relationship Specialty Start Date End Date Manasa Soni DO [address] [place] [address] PCP - General Family Medicine 07/09/23 [employer] And Fabric Worker Relationship Specialty Start Date End Date Manasa Soni DO [address] [place] [address] PCP - General Family Medicine 07/09/23 Reason [...] BE BASED ON THE PRIMARY CLINICAL RECORDS. [facility] [employer] [facility]. provides no warranty or guarantee of the accuracy or completeness of information in this document.
[2023-08-22 12:51] VITALS: BP 108/61; PULSE 105
[2023-08-22] MEDS: BETAMETHASONE ACE/BETAMETHASONE SOD PHOS 30 MG/5 ML 12 MG IM (12:55)
== END 2023-08-22 13:10 | disposition home or self-care (01) ==
LOC: FBCO 12:38 → FBC 12:39
PROVIDERS: Visit Provider Obstetrics & Gynecology
DX: Z87.51 Personal history of pre-term labor (principal)
CPT/HCPCS: J0702

== ENCOUNTER 2023-08-25 07:45 | Outpatient (OUT) | payer BC, SELFPAY ==
--- OUTSIDE RECORDS SUMMARY | 2023-08-25 08:16 | XMS_ITS | CCD ---
Author Name Unknown Address [address] [place], [place] [address] Organization [facility] Care Team Providers Care Poultry Veterinarian Name Role Phone ANGE LOUIS Referring Unavailable RUMSCHBRIDGETG MANASA K Primary Care Unavailable GARRETT GODOY Referring Unavailable RUMSCHLAG, MANASA K Primary Care Unavailable BRYAN LANGFORD Referring Unavailable RUMSCHLAG, MANASA K Primary Care Unavailable Rumschlag Manasa PATIÑO Primary Care Provider GARRETT GODOY Attending Unavailable ERICKA TINEO Attending Unavailable GARRETT GODOY Attending Unavailable Medications Current Medications Medication Drug [...] before bedtime. 0 08/06/2023 Discontinued (Therapy completed) Myiucsge-Nrz-Ea-FA ( 1 + IRON PO) (3 sources) Sokkqzun-Gvd-Pe-FA ( 1 + IRON PO) Take by [...] UA Negative Negative - 4(70) +++ mg/dL [facility] Blood, UA Positive Negative - 50 Efren/mcL [facility] Clarity, UA Clear [facility], [facility]A Yellow [facility] e Glucose, UA Negative Negative - 1999(110) ++++ mg/dL [facility] Interpretation and review of laboratory results Abnormal [facility] Ketones, UA Negative Negative - 160(16) ++++ mg/dL [facility] Leukocytes, UA Positive Negative - 500+++ Luci/mcL [facility] Nitrite, UA Negative Negative - Positive [facility] pH, UA 6.5 5 - 9 [facility] Protein, UA Positive Negative - 1999(20) ++++ mg/dL [facility] Spec Grav, UA 1.030 1 - 1.03 [facility] Urobilinogen, UA 1.0 0.2 - 12 mg/dL [facility] UA (CLEAN/CATCH) INVOICING MACHINE OPERATOR/JING RO IF IND.on 08-04-2023 BILIRUBIN URINE Negative NEGATIVE [facility] BLOOD URINE TRACE-I NEGATIVE [facility] Clarity (U) CLEAR CLEAR [facility] Color (U) YELLOW YELLOW [facility] GLUCOSE URINE UA Negative NEGATIVE mg/dL [facility] Interpretation and review of laboratory results Abnormal [facility] Healthcare Ketones Ql (U) 15 mg/dL Abnormal NEGATIVE [facility] Leukocyte esterase Test strip Ql (U) SMALL Abnormal NEGATIVE [facility] NITRITE URINE Negative NEGATIVE [facility] Health care pH (U) 6.0 [pH] 5.0 - 9.0 [facility] PROTEIN URINE TRACE NEG/TRACE mg[facility] SPECIFIC GRAVITY URINE 1.025 1.005 - 1.025 [facility] URINE MICROSCOPIC INDICATED YES [facility] UROBILINOGEN URINE 1.0 EU/dL 0.2 - 1.0 EU/dL [facility] FREE T3on 08-03-2023 Free T3 [Mass/Vol] 3.27 pg/mL Normal 2.50-3.90 [facility] Comment on above: Performed By: #### Marifer COTTO, 0 #### [facility] ([id number]) [address] [place] [address], [address] [place] [address] THYROID PROFILEon 08-03-2023 Free T4 [Mass/Vol] 0.66 ng/dL Normal 0.61-1.60 [facility] Comment on above: Performed By: #### Marifer COTTO, 0 #### [facility] ([id number]) [address] [place] [address], [address] [place] [address] TSH 1.74 uIU/mL Normal 0.49-4.67 [facility] Comment on above: Performed By: #### Marifer COTTO, 0 #### [facility] ([id number]) [address], [address] [place] [address] CBC AND AUTO DIFFon 07-17-19 24 ABSOLUTE BASOPHIL 0.0 X10E9/L Normal 0.0-0.2 [facility] Comment on above: Performed By: #### Nilam BAILEY, 1504-0, 3016-3 #### [facility] ([id number]) [address], [address] [place] [address] ABSOLUTE NEUTROPHIL 7.1 X10E9/L High 1.5-6.6 [facility] Comment on above: Performed By: #### Nilam BAILEY, 1504-0, 301-3 #### [facility] ([id number]) [address], [address] [place] [address] Basophils/100 WBC (Bld) 0.3 % Normal [facility] Comment on above: Performed By: #### Nilam BAILEY, 1504-0, 3016-3 #### [facility] ([id number]) [address], [address] [place] [address] Eosinophils (Bld) [#/Vol] 0.1 10*3/uL Normal 0.0-0.4 [facility] Comment on above: Performed By: #### Nilam BAILEY, 1504-0, 3016-3 #### [facility] ([id number]) [address], [address] [place] [address] Eosinophils/100 WBC (Bld) 1.0 % Normal [facility] Comment on above: Performed By: #### Nilam BAILEY, 1504-0, 3016-3 #### [facility] ([id number]) [address], [address] [place] [address] Erythrocyte distribution width (RBC) [Ratio] 14.1 % Normal 11.5-15.0 [facility] Comment on above: Performed By: #### Nilam BAILEY, 1504-0, 3016-3 #### [facility] ([id number]) [address] [address] [place] [address] Hematocrit (Bld) [Volume fraction] 34.5 % Low 35-47 [facility] Comment on above: Performed By: #### Nilam BAILEY, 1504-0, 3015-3 #### [facility] ([id number]) [address] [address] [place] [address] Hemoglobin (Bld) [Mass/Vol] 11.5 g/dL Low 11.7-15.5 [facility] Comment on above: Performed By: #### Nilam BAILEY, 1504-0, 3015-3 #### [facility] ([id number]) [address] [address] [place] [address] Lymphocytes (Bld) [#/Vol] 2.1 10*3/uL Normal 1.0-3.5 [facility] Comment on above: Performed By: #### Nilam BAILEY, 1504-0, 3 #### [facility] ([id number]) [address] [address] [place] [address] Lymphocytes/100 WBC (Bld) 21.4 % Normal [facility] Comment on above: Performed By: #### Nilam BAILEY, 1504-0, 3015-3 #### [facility] ([id number]) [address] [address] [place] [address] MCH (RBC) [Entitic mass] 28.9 pg Normal 27-34 [facility] Comment on above: Performed By: #### Nilam BCA, 1504-0, 3016-3 #### [facility] ([id number]) [address] [address] [place] [address] MCHC (RBC) [Mass/Vol] 33.3 g/dL Normal 32-36 [facility] Comment on above: Performed By: #### Nilam BCA, 1504-0, 3016-3 #### [facility] ([id number]) [address], [address] [place] [address] MCV (RBC) [Entitic vol] 87 fL Normal 80-100 [facility] Comment on above: Performed By: #### Nilam BAILEY, 1504-0, 3015-3 #### [facility] ([id number]) [address], [address] [place] [address] Monocytes (Bld) [#/Vol] 0.6 10*3/uL Normal 0-0.9 [facility] Comment on above: Performed By: #### Nilam BAILEY, 1504-0, 3015-08 #### [facility] ([id number]) [address], [address] [place] [address] Monocytes/100 WBC (Bld) 6.1 % Normal [facility] Comment on above: Performed By: #### Nilam BAILEY, 1504-0, 3015-08 #### [facility] ([id number]) [address], [address] [place] [address] Neutrophils/100 WBC (Bld) 71.2 % Normal [facility] Comment on above: Performed By: #### Nilam BAILEY, 1504-0, 3015-08 #### [facility] ([id number]) [address], [address] [place] [address] Platelet mean volume (Bld) [Entitic vol] 7.8 fL Normal 7-12 [facility] Comment on above: Performed By: #### Nilam BAILEY, 1504-0, 3015- #### [facility] ([id number]) [address], [address] [place] [address] Platelets (Bld) [#/Vol] 374 10*3/uL Normal 150-450 [facility] Comment on above: Performed By: #### Nilam BAILEY, 1504-0, 3015-3 #### [facility] ([id number]) [address], [address] [place] [address] RBC COUNT 3.97 X10E12/L Normal 3.80-5.20 [facility] Comment on above: Performed By: #### Nilam BAILEY, 1504-0, 3016-3 #### [facility] ([id number]) [address] [facility] [address] [place] [address] WBC (Bld) [#/Vol] 9.9 10*3/uL Normal 4.0-11.0 [facility] Comment on above: Performed By: #### Nilam BAILEY, 1504-0, 3016-3 #### [facility] ([id number]) [address] [facility] [address] [place] [address] Glucose 1 Hr post 50 g gluco se PO [Mass/Vol]on 07-17-2023 GLU 1H POST 50G LOAD 101 mg/dL Normal 65-139 [facility] Comment on above: Performed By: #### Nilam BAILEY, 1504-0, 3016-3 #### [facility] ([id number]) [address] [facility] [address] [place] [address] TSH Qnon 07-17-2023 TSH 2.24 uIU/mL Normal 0.49-4.67 [facility] Comment on above: Performed By: #### Nilam BAILEY, 1504-0, 3016-3 #### [facility] ([id number]) [address] [address] [place] thyroidon 02-14-2021 thyroid [facility] [address] Ultrasound Report Signed Patient: Lilli Menendez MR#: [id number] 4 : 1995 Acct:[id number] Age/Sex: 26 / F ADM Date: 02/14/21 Loc: UL Room: Type: [facility] CLI Attending Dr: Bryan Langford MD Ordering Provider: [...] Neisha Curry M.D.02/14/2021 2:49 PM Dictation Location: [place] [address] Tech: Ashley Dempsey Transcribed By: YANET 02/14/21 144 Dictated By: Neisha Curry MD 02/14/21 1447 Signed By: 02/14/21 1449 [facility] Vital Signs Date Time Vital Sign Value Performing Clinician Faci lity 08-06-2023 09:41-0500 Body mass index (BMI) [Ratio] 28.93 kg/m2 Ericka VELARDE Work Phone: [facility] 08-06-2023 09:41-0500 Body weight 64.41 kg Ericka VELARDE Work Phone: [facility] 08-06-2023 09:41-0500 Diastolic blood pressure 74 mm[Hg] Ericka VELARDE Work Phone: [facility] 08-06-2023 09:41-0500 Systolic blood pressure 106 mm[Hg] Ericka VELARDE Work Phone: [facility] Healthcare Encounters Encounter Date Encounter Type Care Provider Facility Start: 08-20-2023 End: 08-20-2023 ambulatory GARRETT GODOY Not Available Start: 08-06-2023 End: 08-06-2023 ambulatory ERICKA TINEO Not Available Start: 08-06-2023 End: 08-06-2023 flow sheet Ericka VELARDE Work Phone: [facility] OB Comment on above: Third trimester preg alea; History of labor Start: 08-04-2023 [facility] Result Encounter Garrett Godoy DO Work Phone: [facility] Unsolicited Start: 08-04-2023 [facility] Result Encounter Garrett Godoy DO Work Phone: [facility] Unsolicited Start: 08-03-2023 End: 08-04-2023 ambulatory BRYAN LANGFORD [facility] Start: 07-17-2023 End: 07-18-2023 ambulatory GARRETT GODOY [facility] Start: 07-09-2023 End: 07-09-2023 ambulatory GARRETT GODOY Not Available Start: 06-16-2023 End: 06-17-2023 ambulatory [facility] Procedures Date Procedure Procedure Detail Performing Clinician Start: 08-06-2023 Urnls dip stick/tabl et rgnt non-auto w/o micrscp Ericka VELARDE Work Phone: Start: 08-04-2023 [facility] UA (CLEAN/CATCH) INVOICING MACHINE OPERATOR/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 Garrett Godoy DO Work Phone: Plan of Treatment Date Care Activity Detail Author Start: 08-20-2023 End: 08-20-2023 Patient encounter procedure 08/20/2023 10:50 AM EST Routine [facility] [address] [place] [address] Garrett Godoy, DO [address] [facility] [place] [address] [facility] Start: 08-06-2023 End: 08-06-2024 [...] AM EST Routine [facility] [address] [facility] [place] [address] Ericka Tineo PA [address] [place] [address] Third trimester [facility] Comment on above: Third trimester preg alea Payers Date Payer Category Payer Unknown [id number] 2020 Unknown BCBS BCBS xxxxxx [id number] 2020-Present [phone] [address] [place] [address] [id number] 1995 Unknown [id number] 1996 Unknown [id number] 1996 Unknown [id number] 1996 Unknown [id number] 1996 Unknown [id number] 1996 Unknown [id number] Social History Date Type Detail Facility Tobacco smoking stat [facility] Tobacco smoking consumption unknown [facility] Start: 02-03-2023 [facility] Start: 1995 Sex Assigned At Not on file [facility] Gender identity Not on file [facility] History of Present illness Narrative 08-06-2023 [...] which includes the following prescription(s): levothyroxine and xtakxvyx-ovg-za-fa. Medical History: Active Ambulatory Problems Diagnosis Date [...] nursing note reviewed. Exam conducted with a tetryl dissolver operator present. Vitals: Estimated body mass index is [...] AUTHOR 07/15/2021 [facility] DATE CREATED AUTHOR AUTHOR'S ORGANIZ ATION 08/04/2023 [facility] DATE CREATED AUTHOR AUTHOR'S ORGANIZ ATION 08/22/2023 [facility] EPIC Care Teams (unrecognized sec tion and content) Poultry Veterinarian Relationship Specialty Start Date End Date Manasa Soni DO [address] [place] [address] PCP - General Family Medicine 07/09/23 Poultry Veterinarian Relationship Specialty Start Date End Date Manasa Soni DO [address] [place] [address] PCP - General Family Medicine 07/09/23 Reason [...] BE BASED ON THE PRIMARY CLINICAL RECORDS. [employer] provides no warranty or guarantee of the accuracy or completeness of information in this document.
[2023-08-25 14:09] VITALS: BP 106/66; PULSE 113
== END 2023-08-25 14:34 | disposition home or self-care (01) ==
LOC: FBCO 08:12 → FBC 14:05
PROVIDERS: Visit Provider Obstetrics & Gynecology
DX: O26.892 Other specified pregnancy related conditions, second trimester (principal); Z87.51 Personal history of pre-term labor
CPT/HCPCS: 59025

== ENCOUNTER 2023-08-28 11:10 | Outpatient (OUT) | payer BC, SELFPAY ==
--- OUTSIDE RECORDS SUMMARY | 2023-08-28 11:13 | XMS_ITS | CCD ---
Author Name Unknown Address [address] [place], [place] [id number] Organization [facility] Care Team Providers Care Screw Remover Name Role Phone ANGE LOUIS Referring Unavailable [...] before bedtime. 0 08/06/2023 Discontinued (Therapy completed) Izlvqstg-Lol-Il-FA ( 1 + IRON PO) (3 sources) Izkbgkvf-Tfu-Bt-FA ( 1 + IRON PO) Take by [...] UA Negative Negative - 4(70) +++ mg/dL [facility] Blood, UA Positive Negative - 50 Efren/mcL [facility] Clarity, UA Clear [facility], [facility] Yellow [facility] Glucose, UA Negative Negative - 1999(110) ++++ mg/dL [facility] Interpretation and review of laboratory results Abnormal [facility] Ketones, UA Negative Negative - 160(16) ++++ mg/dL [facility] Leukocytes, UA Positive Negative - 500+++ Luci/mcL [facility] Nitrite, UA Negative Negative - Positive [facility] pH, UA 6.5 5 - [facility] Protein, UA Positive Negative - 1999(20) ++++ mg/dL [facility] Spec Grav, UA 1.030 1 - 1.03 [facility] Urobilinogen, UA 1.0 0.2 - 12 mg/dL [facility] UA (CLEAN/CATCH) VISION IMPAIRED TEACHER/JING RO IF IND.on 08-04-2023 BILIRUBIN URINE Negative NEGATIVE [facility] BLOOD URINE TRACE-I NEGATIVE [facility] Clarity (U) CLEAR CLEAR [facility] Color (U) YELLOW YELLOW [facility] GLUCOSE URINE UA Negative NEGATIVE mg/dL [facility] Interpretation and review of laboratory results Abnormal [facility] Ketones Ql (U) 15 mg/dL Abnormal NEGATIVE [facility] Leukocyte esterase Test strip Ql (U) SMALL Abnormal NEGATIVE [facility] NITRITE URINE Negative NEGATIVE [facility] Health care pH (U) 6.0 [pH] 5.0 - 9.0 [facility] PROTEIN URINE TRACE NEG/TRACE mg/[facility] SPECIFIC GRAVITY URINE 1.025 1.005 - 1.025 [facility] URINE MICROSCOPIC INDICATED YES [facility] UROBILINOGEN URINE 1.0 EU/dL 0.2 - 1.0 EU/dL [facility] FREE T3on 08-03-2023 Free T3 [Mass/Vol] 3.27 pg/mL Normal 2.50-3.90 [facility] Comment on above: Performed By: #### Marifer COTTO, 0 #### [facility] ([id number]) [address] [place] [address], [address] [place] [address] THYROID PROFILEon 08-03-2023 Free T4 [Mass/Vol] 0.66 ng/dL Normal 0.61-1.60 [facility] Comment on above: Performed By: #### Marifer COTTO, 0 #### [facility] ([id number]) [address] [place] [address], [address] [place] [address] TSH 1.74 uIU/mL Normal 0.49-4.67 [facility] Comment on above: Performed By: #### Marifer COTTO, 0 #### [facility] ([id number]) [address], [address] [place] [address] CBC AND AUTO DIFFon 07-17-19 24 ABSOLUTE BASOPHIL 0.0 X10E9/L Normal 0.0-0.2 [facility] Comment on above: Performed By: #### Nilam BAILEY, 1504-0, 3016-3 #### [facility] ([id number]) [address], [address] [place] [address] ABSOLUTE NEUTROPHIL 7.1 X10E9/L High 1.5-6.6 [facility] Comment on above: Performed By: #### Nilam BAILEY, 1504-0, 301-3 #### [facility] ([id number]) [address], [address] [place] [address] Basophils/100 WBC (Bld) 0.3 % Normal [facility] Comment on above: Performed By: #### Nilam BAILEY, 1504-0, 3016-3 #### [facility] ([id number]) [address], [address] [place] [address] Eosinophils (Bld) [#/Vol] 0.1 10*3/uL Normal 0.0-0.4 [facility] Comment on above: Performed By: #### Nilam BAILEY, 1504-0, 3016-3 #### [facility] ([id number]) [address], [address] [place] [address] Eosinophils/100 WBC (Bld) 1.0 % Normal [facility] Comment on above: Performed By: #### Nilam BAILEY, 1504-0, 3016-3 #### [facility] ([id number]) [address], [address] [place] [address] Erythrocyte distribution width (RBC) [Ratio] 14.1 % Normal 11.5-15.0 [facility] Comment on above: Performed By: #### Nilam BAILEY, 1504-0, 3016-3 #### [facility] ([id number]) [address] [place] [address] Hematocrit (Bld) [Volume fraction] 34.5 % Low 35-47 [facility] Comment on above: Performed By: #### Nilam BAILEY, 1504-0, 3015-3 #### [facility] ([id number]) [address] [place] [address] Hemoglobin (Bld) [Mass/Vol] 11.5 g/dL Low 11.7-15.5 [facility] Comment on above: Performed By: #### Nilam BAILEY, 1504-0, 3015-3 #### [facility] ([id number]) [address] [place] [address] Lymphocytes (Bld) [#/Vol] 2.1 10*3/uL Normal 1.0-3.5 [facility] Comment on above: Performed By: #### Nilam BAILEY, 1504-0, 3 #### [facility] ([id number]) [address] [place] [address] Lymphocytes/100 WBC (Bld) 21.4 % Normal [facility] Comment on above: Performed By: #### Nilam BAILEY, 1504-0, 3015-3 #### [facility] ([id number]) [address] [place] [address] MCH (RBC) [Entitic mass] 28.9 pg Normal 27-34 [facility] Comment on above: Performed By: #### Nilam BCA, 1504-0, 3016-3 #### [facility] ([id number]) [address] [place] [address] MCHC (RBC) [Mass/Vol] 33.3 g/dL Normal 32-36 [facility] Comment on above: Performed By: #### Nilam BCA, 1504-0, 3016-3 #### [facility] ([id number]) [address], [address] [place] [address] MCV (RBC) [Entitic vol] 87 fL Normal 80-100 [facility] Comment on above: Performed By: #### Nilam BAILEY, 1504-0, 3015-3 #### [facility] ([id number]) [address], [address] [place] [address] Monocytes (Bld) [#/Vol] 0.6 10*3/uL Normal 0-0.9 [facility] Comment on above: Performed By: #### Nilam BAILEY, 1504-0, 3015-08 #### [facility] ([id number]) [address], [address] [place] [address] Monocytes/100 WBC (Bld) 6.1 % Normal [facility] Comment on above: Performed By: #### Nilam BAILEY, 1504-0, 3015-08 #### [facility] ([id number]) [address], [address] [place] [address] Neutrophils/100 WBC (Bld) 71.2 % Normal [facility] Comment on above: Performed By: #### Nilam BAILEY, 1504-0, 3015-08 #### [facility] ([id number]) [address], [address] [place] [address] Platelet mean volume (Bld) [Entitic vol] 7.8 fL Normal 7-12 [facility] Comment on above: Performed By: #### Nilam BAILEY, 1504-0, 3015- #### [facility] ([id number]) [address], [address] [place] [address] Platelets (Bld) [#/Vol] 374 10*3/uL Normal 150-450 [facility] Comment on above: Performed By: #### Nilam BAILEY, 1504-0, 3015-3 #### [facility] ([id number]) [address], [address] [place] [address] RBC COUNT 3.97 X10E12/L Normal 3.80-5.20 [facility] Comment on above: Performed By: #### Nilam BAILEY, 1504-0, 3016-3 #### [facility] ([id number]) [address] [place] [address] WBC (Bld) [#/Vol] 9.9 10*3/uL Normal 4.0-11.0 [facility] Comment on above: Performed By: #### Nilam BAILEY, 1504-0, 3016-3 #### [facility] ([id number]) [address] [place] [address] Glucose 1 Hr post 50 g gluco se PO [Mass/Vol]on 07-17-2023 GLU 1H POST 50G LOAD 101 mg/dL Normal 65-139 [facility] Comment on above: Performed By: #### Nilam BAILEY, 1504-0, 3016-3 #### [facility] ([id number]) [address] [place] [address] TSH Qnon 07-17-2023 TSH 2.24 uIU/mL Normal 0.49-4.67 [facility] Comment on above: Performed By: #### Nilam BAILEY, 1504-0, 3016-3 #### [facility] ([id number]) [address] [address] [place] thyroidon 02-14-2021 thyroid [facility] [place] [address] Ultrasound Report Signed Patient: Lilli Menendez MR#: [id number] 4 : 1995 Acct:[id number] Age/Sex: 26 / F ADM Date: 02/14/21 Loc: UL Room: Type: [facility] CLI Attending Dr: Bryan Langford MD [...] Neisha Curry M.D.02/14/2021 2:49 PM Dictation Location: [place] [address] Tech: Ashley Dempsey Transcribed By: YANET 02/14/21 144 Dictated By: Neisha Curry MD 02/14/21 1447 Signed By: 02/14/21 1449 [facility] Vital Signs Date Time Vital Sign Value Performing Clinician Faci lity 08-06-2023 09:41-0500 Body mass index (BMI) [Ratio] 28.93 kg/m2 Ericka VELARDE Work Phone: [facility] 08-06-2023 09:41-0500 Body weight 64.41 kg Ericka VELARDE Work Phone: [facility] 08-06-2023 09:41-0500 Diastolic blood pressure 74 mm[Hg] Ericka VELARDE Work Phone: [facility] 08-06-2023 09:41-0500 Systolic blood pressure 106 mm[Hg] Ericka VELARDE Work Phone: [facility] Healthcare Encounters Encounter Date Encounter Type Care Provider Facility Start: 08-20-2023 End: 08-20-2023 ambulatory GARRETT GODOY Not Available Start: 08-06-2023 End: 08-06-2023 ambulatory ERICKA TINEO Not Available Start: 08-06-2023 End: 08-06-2023 flow sheet Ericka VELARDE Work Phone: [facility] BCP OB Comment on above: Third trimester preg alea; History of labor Start: 08-04-2023 [facility] Result Encounter Garrett Godoy DO Work Phone: [facility] Unsolicited Start: 08-04-2023 [facility] Result Encounter Garrett Godoy DO Work Phone: [facility] Unsolicited Start: 08-03-2023 End: 08-04-2023 ambulatory BRYAN LANGFORD [facility] Start: 07-17-2023 End: 07-18-2023 ambulatory GARRETT GODOY [facility] Start: 07-09-2023 End: 07-09-2023 ambulatory GARRETT GODOY Not Available Start: 06-16-2023 End: 06-17-2023 ambulatory [facility] Procedures Date Procedure Procedure Detail Performing Clinician Start: 08-06-2023 Urnls dip stick/tabl et rgnt non-auto w/o micrscp Ericka VELARDE Work Phone: Start: 08-04-2023 [facility] UA (CLEAN/CATCH) VISION IMPAIRED TEACHER/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 Garrett Godoy DO Work Phone: Plan of Treatment Date Care Activity Detail Author Start: 08-20-2023 End: 08-20-2023 Patient encounter procedure 08/20/2023 10:50 AM EST Routine [facility] [address] [place] [address] Garrett Godoy, DO [address] [facility] [place] [address] [facility] Start: 08-06-2023 End: 08-06-2024 [...] AM EST Routine [facility] [address] [facility] [place] [address] Ericka Tineo PA [address] [facility] [place] [address] Third trimester [facility] Comment on above: Third trimester preg alea Payers Date Payer Category Payer Unknown [id number] 2020 Unknown BCBS BCBS xxxxxx [id number] 2020-Present [phone] [address] [place] [address] [id number] 1995 Unknown [id number] 1996 Unknown [id number] 1996 Unknown [id number] 1996 Unknown [id number] 1996 Unknown [id number] 1996 Unknown [id number] Social History Date Type Detail Facility Tobacco smoking stat [facility] Tobacco smoking consumption unknown [facility] [...] which includes the following prescription(s): levothyroxine and omponttm-fzx-qh-fa. Medical History: Active Ambulatory Problems Diagnosis Date [...] nursing note reviewed. Exam conducted with a senior planner present. Vitals: Estimated body mass index is [...] section and content) DATE CREATED AUTHOR 07/15/2021 [facility] DATE CREATED AUTHOR AUTHOR'S ORGANIZ ATION 08/04/2023 [facility] DATE CREATED AUTHOR AUTHOR'S ORGANIZ ATION 08/22/2023 [facility] EPIC Care Teams (unrecognized sec tion and content) Screw Remover Relationship Specialty Start Date End Date Manasa Soni DO [address] [place] [address] PCP - General Family Medicine 07/09/23 Screw Remover Relationship Specialty Start Date End Date Manasa Soni DO [address] [place] [address] PCP - General Family Medicine 07/09/23 Reason [...] BE BASED ON THE PRIMARY CLINICAL RECORDS. [employer] provides no warranty or guarantee of the accuracy or completeness of information in this document.
[2023-08-28 11:22] VITALS: BP 120/72; PULSE 100
--- NOTE | 2023-08-28 11:27 | US_ITS ---
[address] [address] Patient Name: LILLI COSBY MRN: [id number] date: 1995 Sex: F Assigned Patient Location: US Current Patient Location: US Accession/Order Number: [id number] Exam Date: 08/28/2023 11:36 Report Date: 08/28/2023 12:50 At the request of: GARRETT MAHMOOD Procedure: US OB BPP w non-stress EXAMINATION: US OB BPP w non-stress HISTORY: HISTORY OF LABOR Z87.51 COMPARISON: Ultrasound OB biophysical 08/21/2023 TECHNIQUE: Ultrasound biophysical profile was performed in the radiology department. BREATHING MOVEMENTS: 2.0 GROSS BODY MOVEMENTS: 2.0 TONE: 2.0 QUALITATIVE AMNIOTIC FLUID VOLUME: 2.0 PRESENTATION: CEPHALIC HEART RATE: 148.4 bpm bpm. AMNIOTIC FLUID VOLUME: 13.4 cm GESTATIONAL AGE: 31 weeks 3 days CONCLUSION: Total biophysical profile score 8.0. Electronically authenticated by: HARRY WAN Date: 08/28/2023 12:50
== END 2023-08-28 12:02 | disposition home or self-care (01) ==
LOC: US 11:11 → FBC 11:16
PROVIDERS: Visit Provider Obstetrics & Gynecology
DX: Z87.51 Personal history of pre-term labor (principal); Z3A.31 31 weeks gestation of pregnancy
CPT/HCPCS: 76818

== ENCOUNTER 2023-09-01 07:38 | Outpatient (OUT) | payer BC, SELFPAY ==
--- OUTSIDE RECORDS SUMMARY | 2023-09-01 07:41 | XMS_ITS | CCD ---
Author Name Unknown Address [address] [place], [place] [address] Organization [facility] Care Team Providers Care Manager Golf Name Role Phone ANGE LOUIS Referring Unavailable [...] before bedtime. 0 08/06/2023 Discontinued (Therapy completed) Vddssock-Zlg-Qs-FA ( 1 + IRON PO) (3 sources) Ouwirovm-Wwv-Eo-FA ( 1 + IRON PO) Take by [...] UA Negative Negative - 4(70) +++ mg/dL [facility] Blood, UA Positive Negative - 50 Efren/mcL [facility] Clarity, UA Clear [facility], [facility]A Yellow [facility] Glucose, UA Negative Negative - 1999(110) ++++ mg/dL [facility] Interpretation and review of laboratory results Abnormal [facility] Ketones, UA Negative Negative - 160(16) ++++ mg/dL [facility] Leukocytes, UA Positive Negative - 500+++ Luci/mcL [facility] Nitrite, UA Negative Negative - Positive [facility] pH, UA 6.5 5 - 9 [facility] Protein, UA Positive Negative - 1999(20) ++++ mg/dL [facility] Spec Grav, UA 1.030 1 - 1.03 [facility] Urobilinogen, UA 1.0 0.2 - 12 mg/dL [facility] UA (CLEAN/CATCH) LABORER ADJUSTABLE STEEL JOIST/JING RO IF IND.on 08-04-2023 BILIRUBIN URINE Negative NEGATIVE [facility] BLOOD URINE TRACE-I NEGATIVE [facility] Clarity (U) CLEAR CLEAR [facility] Color (U) YELLOW YELLOW [facility] GLUCOSE URINE UA Negative NEGATIVE mg/dL [facility] Interpretation and review of laboratory results Abnormal [facility] Healthcare Ketones Ql (U) 15 mg/dL Abnormal [facility]GATIVE [facility] Leukocyte esterase Test strip Ql (U) SMALL Abnormal NEGATIVE [facility] NITRITE URINE Negative NEGATIVE [facility] Health care pH (U) 6.0 [pH] 5.0 - 9.0 [facility] PROTEIN URINE TRACE NEG/TRACE mg/dL [facility] SPECIFIC GRAVITY URINE 1.025 1.005 - 1.025 [facility] URINE MICROSCOPIC INDICATED YES [facility] UROBILINOGEN URINE 1.0 EU/dL 0.2 - 1.0 EU/dL [facility] FREE T3on 08-03-2023 Free T3 [Mass/Vol] 3.27 pg/mL Normal 2.50-3.90 [facility] Comment on above: Performed By: #### Marifer COTTO, 0 #### [facility] ([id number]) [address] [place] [address], [address] [place] [address] THYROID PROFILEon 08-03-2023 Free T4 [Mass/Vol] 0.66 ng/dL Normal 0.61-1.60 [facility] Comment on above: Performed By: #### Marifer COTTO, 0 #### [facility] ([id number]) [address] [place] [address], [address] [place] [address] TSH 1.74 uIU/mL Normal 0.49-4.67 [facility] Comment on above: Performed By: #### Marifer COTTO, 0 #### [facility] ([id number]) [address], [address] [place] [address] CBC AND AUTO DIFFon 07-17-19 24 ABSOLUTE BASOPHIL 0.0 X10E9/L Normal 0.0-0.2 [facility] Comment on above: Performed By: #### Nilam BAILEY, 1504-0, 3016-3 #### [facility] ([id number]) [address], [address] [place] [address] ABSOLUTE NEUTROPHIL 7.1 X10E9/L High 1.5-6.6 [facility] Comment on above: Performed By: #### Nilam BAILEY, 1504-0, 301-3 #### [facility] ([id number]) [address], [address] [place] [address] Basophils/100 WBC (Bld) 0.3 % Normal [facility] Comment on above: Performed By: #### Nilam BAILEY, 1504-0, 3016-3 #### [facility] ([id number]) [address], [address] [place] [address] Eosinophils (Bld) [#/Vol] 0.1 10*3/uL Normal 0.0-0.4 [facility] Comment on above: Performed By: #### Nilam BAILEY, 1504-0, 3016-3 #### [facility] ([id number]) [address], [address] [place] [address] Eosinophils/100 WBC (Bld) 1.0 % Normal [facility] Comment on above: Performed By: #### Nilam BAILEY, 1504-0, 3016-3 #### [facility] ([id number]) [address], [address] [place] [address] Erythrocyte distribution width (RBC) [Ratio] 14.1 % Normal 11.5-15.0 [facility] Comment on above: Performed By: #### Nilam BAILEY, 1504-0, 3016-3 #### [facility] ([id number]) [address] [address] [place] [address] Hematocrit (Bld) [Volume fraction] 34.5 % Low 35-47 [facility] Comment on above: Performed By: #### Nilam BAILEY, 1504-0, 3015-3 #### [facility] ([id number]) [address] [address] [place] [address] Hemoglobin (Bld) [Mass/Vol] 11.5 g/dL Low 11.7-15.5 [facility] Comment on above: Performed By: #### Nilam BAILEY, 1504-0, 3015-3 #### [facility] ([id number]) [address] [address] [place] [address] Lymphocytes (Bld) [#/Vol] 2.1 10*3/uL Normal 1.0-3.5 [facility] Comment on above: Performed By: #### Nilam BAILEY, 1504-0, 3 #### [facility] ([id number]) [address] [address] [place] [address] Lymphocytes/100 WBC (Bld) 21.4 % Normal [facility] Comment on above: Performed By: #### Nilam BAILEY, 1504-0, 3015-3 #### [facility] ([id number]) [address] [address] [place] [address] MCH (RBC) [Entitic mass] 28.9 pg Normal 27-34 [facility] Comment on above: Performed By: #### Nilam BCA, 1504-0, 3016-3 #### [facility] ([id number]) [address] [address] [place] [address] MCHC (RBC) [Mass/Vol] 33.3 g/dL Normal 32-36 [facility] Comment on above: Performed By: #### Nilam BCA, 1504-0, 3016-3 #### [facility] ([id number]) [address], [address] [place] [address] MCV (RBC) [Entitic vol] 87 fL Normal 80-100 [facility] Comment on above: Performed By: #### Nilam BAILEY, 1504-0, 3015-3 #### [facility] ([id number]) [address], [address] [place] [address] Monocytes (Bld) [#/Vol] 0.6 10*3/uL Normal 0-0.9 [facility] Comment on above: Performed By: #### Nilam BAILEY, 1504-0, 3015-08 #### [facility] ([id number]) [address], [address] [place] [address] Monocytes/100 WBC (Bld) 6.1 % Normal [facility] Comment on above: Performed By: #### Nilam BAILEY, 1504-0, 3015-08 #### [facility] ([id number]) [address], [address] [place] [address] Neutrophils/100 WBC (Bld) 71.2 % Normal [facility] Comment on above: Performed By: #### Nilam BAILEY, 1504-0, 3015-08 #### [facility] ([id number]) [address], [address] [place] [address] Platelet mean volume (Bld) [Entitic vol] 7.8 fL Normal 7-12 [facility] Comment on above: Performed By: #### Nilam BAILEY, 1504-0, 3015- #### [facility] ([id number]) [address], [address] [place] [address] Platelets (Bld) [#/Vol] 374 10*3/uL Normal 150-450 [facility] Comment on above: Performed By: #### Nilam BAILEY, 1504-0, 3015-3 #### [facility] ([id number]) [address], [address] [place] [address] RBC COUNT 3.97 X10E12/L Normal 3.80-5.20 [facility] Comment on above: Performed By: #### Nilam BAILEY, 1504-0, 3016-3 #### [facility] ([id number]) [address] [place] [address] WBC (Bld) [#/Vol] 9.9 10*3/uL Normal 4.0-11.0 [facility] Comment on above: Performed By: #### Nilam BAILEY, 1504-0, 3016-3 #### [facility] ([id number]) [address] [place] [address] Glucose 1 Hr post 50 g gluco se PO [Mass/Vol]on 07-17-2023 GLU 1H POST 50G LOAD 101 mg/dL Normal 65-139 [facility] Comment on above: Performed By: #### Nilam BAILEY, 1504-0, 3016-3 #### [facility] ([id number]) [address] [place] [address] TSH Qnon 07-17-2023 TSH 2.24 uIU/mL Normal 0.49-4.67 [facility] Comment on above: Performed By: #### Nilam BAILEY, 1504-0, 3016-3 #### [facility] ([id number]) [address] [address] US thyroidon 02-14-2021 thyroid [place] [address] Ultrasound Report Signed Patient: Lilli Menendez MR#: [id number] 4 : 1995 Acct:[id number] Age/Sex: 26 / F ADM Date: 02/14/21 Loc: UL Room: Type: [facility] CLI Attending Dr: Bryan Langford MD Ordering [...] Neisha Curry M.D.02/14/2021 2:49 PM Dictation Location: [place] [address] Tech: Ashley Dempsey Transcribed By: YANET 02/14/21 144 Dictated By: Neisha Curry MD 02/14/21 1447 Signed By: 02/14/21 1449 [facility] Vital Signs Date Time Vital Sign Value Performing Clinician Faci lity 08-06-2023 09:41-0500 Body mass index (BMI) [Ratio] 28.93 kg/m2 Ericka VELARDE Work Phone: [facility] 08-06-2023 09:41-0500 Body weight 64.41 kg Ericka VELARDE Work Phone: [facility] 08-06-2023 09:41-0500 Diastolic blood pressure 74 mm[Hg] Ericka VELARDE Work Phone: [facility] 08-06-2023 09:41-0500 Systolic blood pressure 106 mm[Hg] Ericka VELARDE Work Phone: [facility] Healthcare Encounters Encounter Date Encounter Type Care Provider Facility Start: 08-20-2023 End: 08-20-2023 ambulatory GARRETT GODOY Not Available Start: 08-06-2023 End: 08-06-2023 ambulatory ERICKA TINEO Not Available Start: 08-06-2023 End: 08-06-2023 flow sheet Ericka VELARDE Work Phone: [facility] BCP OB Comment on above: Third trimester preg alea; History of labor Start: 08-04-2023 [facility] Result Encounter Garrett Godoy DO Work Phone: [facility] Unsolicited Start: 08-04-2023 [facility] Result Encounter Garrett Godoy DO Work Phone: [facility] Unsolicited Start: 08-03-2023 End: 08-04-2023 ambulatory BRYAN LANGFORD [facility] Start: 07-17-2023 End: 07-18-2023 ambulatory GARRETT GODOY [facility] Start: 07-09-2023 End: 07-09-2023 ambulatory GARRETT GODOY Not Available Start: 06-16-2023 End: 06-17-2023 ambulatory [facility] Procedures Date Procedure Procedure Detail Performing Clinician Start: 08-06-2023 Urnls dip stick/tabl et rgnt non-auto w/o micrscp Ericka VELARDE Work Phone: Start: 08-04-2023 [facility] UA (CLEAN/CATCH) LABORER ADJUSTABLE STEEL JOIST/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 Garrett Godoy DO Work Phone: Plan of Treatment Date Care Activity Detail Author Start: 08-20-2023 End: 08-20-2023 Patient encounter procedure 08/20/2023 10:50 AM EST Routine [facility] [address] [place] [address] Garrett Godoy, DO [address] [place] [address] [facility] Start: 08-06-2023 End: 08-06-2024 [...] AM EST Routine [facility] [address] [place] [address] Ericka Tineo PA [address] [place] [address] Third trimester [facility] Comment on above: Third trimester preg alea Payers Date Payer Category Payer Unknown [id number] 2020 Unknown BCBS BCBS xxxxxx [id number] 2020-Present [phone] [address] [place] [address] [id number] 1996 Unknown [id number] 1996 Unknown [id number] 1996 Unknown [id number] 1996 Unknown [id number] 1996 Unknown [id number] 1996 Unknown [id number] Social History Date Type Detail Facility Tobacco smoking stat [facility] Tobacco smoking consumption unknown [facility] Start: [...] which includes the following prescription(s): levothyroxine and eeghtndr-htw-nr-fa. Medical History: Active Ambulatory Problems Diagnosis Date [...] nursing note reviewed. Exam conducted with a residential leasing agent present. Vitals: Estimated body mass index is [...] section and content) DATE CREATED AUTHOR 07/15/[address] [facility] DATE CREATED AUTHOR AUTHOR'S ORGANIZ ATION 08/04/2023 [facility] DATE CREATED AUTHOR AUTHOR'S ORGANIZ ATION 08/22/2023 [facility] [employer] Care Teams (unrecognized sec tion and content) Manager Golf Relationship Specialty Start Date End Date Manasa Soni DO [address] [place] [address] PCP - General Family Medicine 07/09/23 Manager Golf Relationship Specialty Start Date End Date Manasa Soni DO [address] [place] [address] PCP - General Family Medicine 07/09/23 Reason [...] BE BASED ON THE PRIMARY CLINICAL RECORDS. [employer] provides no warranty or guarantee of the accuracy or completeness of information in this document.
[2023-09-01 14:19] VITALS: BP 107/60; PULSE 101
== END 2023-09-01 14:50 | disposition home or self-care (01) ==
LOC: FBCO 07:38 → FBC 14:07
PROVIDERS: Visit Provider Obstetrics & Gynecology
DX: O26.893 Other specified pregnancy related conditions, third trimester (principal); Z3A.00 Weeks of gestation of pregnancy not specified
CPT/HCPCS: 59025

== ENCOUNTER 2023-09-04 07:15 | Outpatient (OUT) | payer BC, SELFPAY ==
--- OUTSIDE RECORDS SUMMARY | 2023-09-04 07:29 | XMS_ITS | CCD ---
Author Name Unknown Address [address] [place], [place] [id number] Organization [facility] Care Team Providers Care Network Infrastructure Architect Name Role Phone ANGE LOUIS Referring Unavailable RUMSCHBRDIGETG MANASA K Primary Care Unavailable GARRETT GODOY [...] before bedtime. 0 08/06/2023 Discontinued (Therapy completed) Udkpfjxd-Abr-Xw-FA ( 1 + IRON PO) (3 sources) Grrfstto-Azj-An-FA ( 1 + IRON PO) Take by [...] UA Negative Negative - 4(70) +++ mg/dL [facility] Blood, UA Positive Negative - 50 Efren/mcL [facility] Clarity, UA Clear [facility]A Yellow [facility]car e Glucose, UA Negative Negative - 1999(110) ++++ mg/dL [facility] Interpretation and review of laboratory results Abnormal [facility] Ketones, UA Negative Negative - 160(16) ++++ mg/dL [facility] Leukocytes, UA Positive Negative - 500+++ Luci/mcL [facility] Nitrite, UA Negative Negative - Positive [facility] pH, UA 6.5 5 - 9 [facility] Protein, UA Positive Negative - 1999(20) ++++ mg/dL [facility] Spec Grav, UA 1.030 1 - 1.03 [facility] Urobilinogen, UA 1.0 0.2 - 12 mg/dL [facility] UA (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/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.on 08-04-2023 BILIRUBIN URINE Negative NEGATIVE [facility] BLOOD URINE TRACE-I NEGATIVE [facility] Clarity (U) CLEAR CLEAR [facility] Color (U) YELLOW YELLOW [facility] GLUCOSE URINE UA Negative NEGATIVE mg/dL [facility] Interpretation and review of laboratory results Abnormal [facility] Healthcare Ketones Ql (U) 15 mg/dL Abnormal NEGATIVE [facility] Leukocyte esterase Test strip Ql (U) SMALL Abnormal NEGATIVE [facility] NITRITE URINE Negative NEGATIVE [facility] Health care pH (U) 6.0 [pH] 5.0 - 9.0 [facility] PROTEIN URINE TRACE NEG/TRACE mg/[facility] SPECIFIC GRAVITY URINE 1.025 1.005 - 1.025 [facility] URINE MICROSCOPIC INDICATED YES [facility] UROBILINOGEN URINE 1.0 EU/dL 0.2 - 1.0 EU/dL [facility] FREE T3on 08-03-2023 Free T3 [Mass/Vol] 3.27 pg/mL Normal 2.50-3.90 [facility] Comment on above: Performed By: #### Marifer COTTO, 0 #### [facility] ([id number]) [address] [place] [address], [address] [place] [address] THYROID PROFILEon 08-03-2023 Free T4 [Mass/Vol] 0.66 ng/dL Normal 0.61-1.60 [facility] Comment on above: Performed By: #### Marifer COTTO, 0 #### [facility] ([id number]) [address] [place] [address], [address] [place] [address] TSH 1.74 uIU/mL Normal 0.49-4.67 [facility] Comment on above: Performed By: #### Marifer COTTO, 0 #### [facility] ([id number]) [address], [address] [place] [address] CBC AND AUTO DIFFon 07-17-19 24 ABSOLUTE BASOPHIL 0.0 X10E9/L Normal 0.0-0.2 [facility] Comment on above: Performed By: #### Nilam BAILEY, 1504-0, 3016-3 #### [facility] ([id number]) [address], [address] [place] [address] ABSOLUTE NEUTROPHIL 7.1 X10E9/L High 1.5-6.6 [facility] Comment on above: Performed By: #### Nilam BAILEY, 1504-0, 301-3 #### [facility] ([id number]) [address], [address] [place] [address] Basophils/100 WBC (Bld) 0.3 % Normal [facility] Comment on above: Performed By: #### Nilam BAILEY, 1504-0, 3016-3 #### [facility] ([id number]) [address], [address] [place] [address] Eosinophils (Bld) [#/Vol] 0.1 10*3/uL Normal 0.0-0.4 [facility] Comment on above: Performed By: #### Nilam BAILEY, 1504-0, 3016-3 #### [facility] ([id number]) [address], [address] [place] [address] Eosinophils/100 WBC (Bld) 1.0 % Normal [facility] Comment on above: Performed By: #### Nilam BAILEY, 1504-0, 3016-3 #### [facility] ([id number]) [address], [address] [place] [address] Erythrocyte distribution width (RBC) [Ratio] 14.1 % Normal 11.5-15.0 [facility] Comment on above: Performed By: #### Nilam BAILEY, 1504-0, 3016-3 #### [facility] ([id number]) [address] [address] [place] [address] Hematocrit (Bld) [Volume fraction] 34.5 % Low 35-47 [facility] Comment on above: Performed By: #### Nilam BAILEY, 1504-0, 3015-3 #### [facility] ([id number]) [address] [address] [place] [address] Hemoglobin (Bld) [Mass/Vol] 11.5 g/dL Low 11.7-15.5 [facility] Comment on above: Performed By: #### Nilam BAILEY, 1504-0, 3015-3 #### [facility] ([id number]) [address] [address] [address] [place] [address] Lymphocytes (Bld) [#/Vol] 2.1 10*3/uL Normal 1.0-3.5 [facility] Comment on above: Performed By: #### Nilam BAILEY, 1504-0, 3 #### [facility] ([id number]) [address] [address] [place] [address] Lymphocytes/100 WBC (Bld) 21.4 % Normal [facility] Comment on above: Performed By: #### Nilam BAILEY, 1504-0, 3015-3 #### [facility] ([id number]) [address] [address] [place] [address] MCH (RBC) [Entitic mass] 28.9 pg Normal 27-34 [facility] Comment on above: Performed By: #### Nilam BCA, 1504-0, 3016-3 #### [facility] ([id number]) [address] [address] [place] [address] MCHC (RBC) [Mass/Vol] 33.3 g/dL Normal 32-36 [facility] Comment on above: Performed By: #### Nilam BCA, 1504-0, 3016-3 #### [facility] ([id number]) [address], [address] [place] [address] MCV (RBC) [Entitic vol] 87 fL Normal 80-100 [facility] Comment on above: Performed By: #### Nilam BAILEY, 1504-0, 3015-3 #### [facility] ([id number]) [address], [address] [place] [address] Monocytes (Bld) [#/Vol] 0.6 10*3/uL Normal 0-0.9 [facility] Comment on above: Performed By: #### Nilam BAILEY, 1504-0, 3015-08 #### [facility] ([id number]) [address], [address] [place] [address] Monocytes/100 WBC (Bld) 6.1 % Normal [facility] Comment on above: Performed By: #### Nilam BAILEY, 1504-0, 3015-08 #### [facility] ([id number]) [address], [address] [place] [address] Neutrophils/100 WBC (Bld) 71.2 % Normal [facility] Comment on above: Performed By: #### Nilam BAILEY, 1504-0, 3015-08 #### [facility] ([id number]) [address], [address] [place] [address] Platelet mean volume (Bld) [Entitic vol] 7.8 fL Normal 7-12 [facility] Comment on above: Performed By: #### Nilam BAILEY, 1504-0, 3015- #### [facility] ([id number]) [address], [address] [place] [address] Platelets (Bld) [#/Vol] 374 10*3/uL Normal 150-450 [facility] Comment on above: Performed By: #### Nilam BAILEY, 1504-0, 3015-3 #### [facility] ([id number]) [address], [address] [place] [address] RBC COUNT 3.97 X10E12/L Normal 3.80-5.20 [facility] Comment on above: Performed By: #### Nilam BAILEY, 1504-0, 3016-3 #### [facility] ([id number]) [address] [address] [place] [address] WBC (Bld) [#/Vol] 9.9 10*3/uL Normal 4.0-11.0 [facility] Comment on above: Performed By: #### Nilam BAILEY, 1504-0, 3016-3 #### [facility] ([id number]) [address] [facility] [address] [place] [address] Glucose 1 Hr post 50 g gluco se PO [Mass/Vol]on 07-17-2023 GLU 1H POST 50G LOAD 101 mg/dL Normal 65-139 [facility] Comment on above: Performed By: #### Nilam BAILEY, 1504-0, 3016-3 #### [facility] ([id number]) [address] [facility] [address] [place] [address] TSH Qnon 07-17-2023 TSH 2.24 uIU/mL Normal 0.49-4.67 [facility] Comment on above: Performed By: #### Nilam BAILEY, 1504-0, 3016-3 #### [facility] ([id number]) [address] [address] US thyroidon 02-14-[address] [facility] [place] [address] Ultrasound Report Signed Patient: Lilli Menendez MR#: [id number] 4 : 1995 Acct:[id number] Age/Sex: 26 / F ADM Date: 02/14/21 Loc: UL Room: Type: [facility] CLI Attending Dr: Bryan Langford MD [...] Neisha Curry M.D.02/14/2021 2:49 PM Dictation Location: [place] [address] Tech: Ashley Dempsey Transcribed By: YANET 02/14/21 144 Dictated By: Neisha Curry MD 02/14/21 1447 Signed By: 02/14/21 1449 [facility] Vital Signs Date Time Vital Sign Value Performing Clinician Faci lity 08-06-2023 09:41-0500 Body mass index (BMI) [Ratio] 28.93 kg/m2 Ericka VELARDE Work Phone: [facility] 08-06-2023 09:41-0500 Body weight 64.41 kg Ericka VELARDE Work Phone: [facility] 08-06-2023 09:41-0500 Diastolic blood pressure 74 mm[Hg] Ericka VELARDE Work Phone: [facility] 08-06-2023 09:41-0500 Systolic blood pressure 106 mm[Hg] Ericka VELARDE Work Phone: [facility] Healthcare Encounters Encounter Date Encounter Type Care Provider Facility Start: 08-20-2023 End: 08-20-2023 ambulatory GARRETT GODOY Not Available Start: 08-06-2023 End: 08-06-2023 ambulatory ERICKA TINEO Not Available Start: 08-06-2023 End: 08-06-2023 flow sheet Ericka VELARDE Work Phone: [facility] OB Comment on above: Third trimester preg alea; History of labor Start: 08-04-2023 [facility] Result Encounter Garrett Godoy DO Work Phone: [facility] Unsolicited Start: 08-04-2023 [facility] Result Encounter Garrett Godoy DO Work Phone: [facility] Unsolicited Start: 08-03-2023 End: 08-04-2023 ambulatory BRYAN LANGFORD [facility] Start: 07-17-2023 End: 07-18-2023 ambulatory GARRETT GODOY [facility] Start: 07-09-2023 End: 07-09-2023 ambulatory GARRETT OGDOY Not Available Start: 06-16-2023 End: 06-17-2023 ambulatory ABEER [facility] Procedures Date Procedure Procedure Detail Performing Clinician Start: 08-06-2023 Urnls dip stick/tabl et rgnt non-auto w/o micrscp Ericka VELARDE Work Phone: Start: 08-04-2023 [facility] UA (CLEAN/CATCH) 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 Garrett Godoy DO Work Phone: Plan of Treatment Date Care Activity Detail Author Start: 08-20-2023 End: 08-20-2023 Patient encounter procedure 08/20/2023 10:50 AM EST Routine [facility] [address] [place] [address] Garrett Godoy, DO [address] [place] [address] [facility] Start: 08-06-2023 End: 08-06-2024 [...] AM EST Routine [facility] [address] [place] [address] Ericka Tineo PA [address] [place] [address] Third trimester [facility] Comment on above: Third trimester preg alea Payers Date Payer Category Payer Unknown [id number] 2020 Unknown BCBS BCBS xxxxxx [id number] 2020-Present [phone] [address] [place] [address] [id number] 1995 Unknown [id number] 1995 Unknown [id number] 1995 Unknown [id number] 1996 Unknown [id number] 1996 Unknown [id number] 1996 Unknown [id number] Social History Date Type Detail Facility Tobacco smoking stat [facility] Tobacco smoking consumption unknown [facility] [...] which includes the following prescription(s): levothyroxine and cnfvieop-vbe-tr-fa. Medical History: Active Ambulatory Problems Diagnosis Date [...] nursing note reviewed. Exam conducted with a property custodian present. Vitals: Estimated body mass index is [...] section and content) DATE CREATED AUTHOR 07/15/2021 [facility] DATE CREATED AUTHOR AUTHOR'S ORGANIZ ATION 08/04/2023 [facility] DATE CREATED AUTHOR AUTHOR'S ORGANIZ ATION 08/22/2023 [facility] [employer] Care Teams (unrecognized sec tion and content) Network Infrastructure Architect Relationship Specialty Start Date End Date Manasa Soni DO [address] [place] [address] PCP - General Family Medicine 07/09/23 Network Infrastructure Architect Relationship Specialty Start Date End Date Manasa Soni DO [address] [place] [address] PCP - General Family Medicine 07/09/23 Reason [...] BE BASED ON THE PRIMARY CLINICAL RECORDS. [employer] provides no warranty or guarantee of the accuracy or completeness of information in this document.
--- NOTE | 2023-09-04 11:09 | US_ITS ---
[address] [address] Patient Name: LILLI COSBY MRN: [id number] date: 1995 Sex: F Assigned Patient Location: [facility] Current Patient Location: Accession/Order Number: [id number] Exam Date: 09/04/2023 11:10 Report Date: 09/04/2023 12:07 At the request of: GARRETT MAHMOOD Procedure: US OB BPP w non-stress EXAMINATION: US OB BPP w non-stress HISTORY: History of labor Z87.51 COMPARISON: Ultrasound OB biophysical 08/28/2023 TECHNIQUE: Ultrasound biophysical profile was performed in the radiology department. BREATHING MOVEMENTS: 2.0 GROSS BODY MOVEMENTS: 2.0 TONE: 2.0 QUALITATIVE AMNIOTIC FLUID VOLUME: 2.0 PRESENTATION: CEPHALIC HEART RATE: 143.6 bpm bpm. AMNIOTIC FLUID VOLUME: 14.2 cm GESTATIONAL AGE: 32 weeks 3 days CONCLUSION: Total biophysical profile score 8.0. Electronically authenticated by: HARRY WAN Date: 09/04/2023 12:07
[2023-09-04 11:29] VITALS: BP 100/55; PULSE 101
== END 2023-09-04 11:53 | disposition home or self-care (01) ==
LOC: US 07:26 → FBC 11:08
PROVIDERS: Visit Provider Obstetrics & Gynecology
DX: Z87.51 Personal history of pre-term labor (principal); Z3A.32 32 weeks gestation of pregnancy
CPT/HCPCS: 76818

== ENCOUNTER 2023-09-08 08:05 | Outpatient (OUT) | payer BC, SELFPAY ==
--- OUTSIDE RECORDS SUMMARY | 2023-09-08 08:08 | XMS_ITS | CCD ---
Author Organization [facility] Care Team Providers Care Retort Firer Name Role Phone ANGE LOUIS Referring Unavailable SANDRA MANASA Ana Primary Care Unavailable GARRETT GODOY Referring Unavailable SANDRA MANASA K Primary Care Unavailable BRYAN LANGFORD Referring Unavailable WILLYLAHeriberto MANASA K Primary Care Unavailable Manasa Soni DO Primary Care Provider GARRETT GODOY Attending Unavailable ERICKA TINEO Attending Unavailable GARRETT GODOY Attending Unavailable ERICKA TINEO Attending [...] before bedtime. 0 08/06/2023 Discontinued (Therapy completed) Zpubkbnh-Wcn-Xg-FA ( 1 + IRON PO) (3 sources) Hylmcktp-Prx-Ay-FA ( 1 + IRON PO) Take by [...] UA Negative Negative - 4(70) +++ mg/dL [facility] Blood, UA Positive Negative - 50 Efren/mcL [facility] Clarity, UA Clear [facility], [facility]A Yellow [facility] Glucose, UA Negative Negative - 1999(110) ++++ mg/dL [facility] Interpretation and review of laboratory results Abnormal [facility] Ketones, UA Negative Negative - 160(16) ++++ mg/dL [facility] Leukocytes, UA Positive Negative - 500+++ Luci/mcL [facility] Nitrite, UA Negative Negative - Positive [facility] pH, UA 6.5 5 - [address] 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/JING RO IF IND.on 08-04-2023 BILIRUBIN URINE Negative NEGATIVE [facility] BLOOD URINE TRACE-I NEGATIVE [facility] Clarity (U) CLEAR CLEAR [facility] Color (U) YELLOW YELLOW [facility] GLUCOSE URINE UA Negative NEGATIVE mg/dL [facility]ation and review of laboratory results Abnormal [facility] Ketones Ql (U) 15 mg/dL Abnormal NEGATIVE [facility] Leukocyte esterase Test strip Ql (U) SMALL Abnormal NEGATIVE [facility] NITRITE URINE Negative NEGATIVE [facility] pH (U) 6.0 [pH] 5.0 - 9.0 [facility] PROTEIN URINE TRACE NEG/TRACE mg/dL [facility] SPECIFIC GRAVITY URINE 1.025 1.005 - 1.025 [facility] URINE MICROSCOPIC INDICATED YES [facility] UROBILINOGEN URINE 1.0 EU/dL 0.2 - 1.0 EU/dL [facility] FREE T3on 08-03-2023 Free T3 [Mass/Vol] 3.27 pg/mL Normal 2.50-3.90 [facility] Comment on above: Performed By: #### Marifer COTTO, 0 #### [facility] ([id number]) [address] [facility], [address] [address] THYROID PROFILEon 08-03-2023 Free T4 [Mass/Vol] 0.66 ng/dL Normal 0.61-1.60 [facility] Comment on above: Performed By: #### T KIRTI, 0 #### [facility] ([id number]) [address] [facility], [facility] [address] [place] [address] TSH 1.74 uIU/mL Normal 0.49-4.67 [facility] Comment on above: Performed By: #### T KIRTI, 3050 #### [facility] ([id number]) [address] [facility] [place] [address] CBC AND AUTO DIFFon 07-17-19 ABSOLUTE BASOPHIL 0.0 X10E9/L Normal 0.0-0.2 [facility] Comment on above: Performed By: #### Nilam BAILEY, 1504-0, 3016-3 #### [facility] ([id number]) [address], [facility] [address] [place] [address] ABSOLUTE NEUTROPHIL 7.1 X10E9/L High 1.5-6.6 [facility] Comment on above: Performed By: #### Nilam BAILEY, 1504-0, 3016-3 #### [facility] ([id number]) [address], [facility] [address] [place] [address] Basophils/100 WBC (Bld) 0.3 % Normal [facility] Comment on above: Performed By: #### Nilam BAILEY, 1504-0, 3016-3 #### [facility] ([id number]) [address], [address] [place] [address] Eosinophils (Bld) [#/Vol] 0.1 10*3/uL Normal 0.0-0.4 [facility] Comment on above: Performed By: #### Nilam BAILEY, 1504-0, 3016-3 #### [facility] ([id number]) [address], [address] [place] [address] Eosinophils/100 WBC (Bld) 1.0 % Normal [facility] Comment on above: Performed By: #### Nilam BAILEY, 1504-0, 3016-3 #### [facility] ([id number]) [address], [facility] [address] [place] [address] Erythrocyte distribution width (RBC) [Ratio] 14.1 % Normal 11.5-15.0 [facility] Comment on above: Performed By: #### Nilam BAILEY, 1504-0, 3016-3 #### [facility] ([id number]) [address], [address] [place] [address] Hematocrit (Bld) [Volume fraction] 34.5 % Low 35-47 [facility] Comment on above: Performed By: #### Nilam BAILEY, 1504-0, 3016-3 #### [facility] ([id number]) [address], [facility] [address] [place] [address] Hemoglobin (Bld) [Mass/Vol] 11.5 g/dL Low 11.7-15.5 [facility] Comment on above: Performed By: #### Nilam BAILEY, 1504-0, 3016-3 #### [facility] ([id number]) [address], [facility] [address] [place] [address] Lymphocytes (Bld) [#/Vol] 2.1 10*3/uL Normal 1.0-3.5 [facility] Comment on above: Performed By: #### Nilam BAILEY, 1504-0, 3016-3 #### [facility] ([id number]) [address], [facility] [address] [place] [address] Lymphocytes/100 WBC (Bld) 21.4 % Normal [facility] Comment on above: Performed By: #### Nilam BAILEY, 1504-0, 3016-3 #### [facility] ([id number]) [address], [address] [place] [address] MCH (RBC) [Entitic mass] 28.9 pg Normal 27-34 [facility] Comment on above: Performed By: #### Nilam BAILEY, 1504-0, 3016-3 #### [facility] ([id number]) [address], [address] [place] [address] MCHC (RBC) [Mass/Vol] 33.3 g/dL Normal 32-36 [facility] Comment on above: Performed By: #### Nilam BAILEY, 1504-0, 3016-3 #### [facility] ([id number]) [address], [address] [place] [address] MCV (RBC) [Entitic vol] 87 fL Normal 80-100 [facility] Comment on above: Performed By: #### Nilam BAILEY, 1504-0, 3016-3 #### [facility] ([id number]) [address], [address] [place] [address] Monocytes (Bld) [#/Vol] 0.6 10*3/uL Normal 0-0.9 [facility] Comment on above: Performed By: #### Nilam BAILEY, 1504-0, 3016-3 #### [facility] ([id number]) [address], [address] [place] [address] Monocytes/100 WBC (Bld) 6.1 % Normal [facility] Comment on above: Performed By: #### Nilam BAILEY, 1504-0, 6-3 #### [facility] ([id number]) [address], [address] [place] [address] Neutrophils/100 WBC (Bld) 71.2 % Normal [facility] Comment on above: Performed By: #### Nilam BAILEY, 1504-0, 3 #### [facility] ([id number]) [address], [address] [place] [address] Platelet mean volume (Bld) [Entitic vol] 7.8 fL Normal 7-12 [facility] Comment on above: Performed By: #### Nilam BAILEY, 1504-0, 6-3 #### [facility] ([id number]) [address], [address] [place] [address] Platelets (Bld) [#/Vol] 374 10*3/uL Normal 150-450 [facility] Comment on above: Performed By: #### Nilam BAILEY, 1504-0, 3016-3 #### [facility] ([id number]) [address], [address] [place] [address] RBC COUNT 3.97 X10E12/L Normal 3.80-5.20 [facility] Comment on above: Performed By: #### Nilam BAILEY, 1504-0, 3016-3 #### [facility] ([id number]) [address], [facility] [address] [place] [address] WBC (Bld) [#/Vol] 9.9 10*3/uL Normal 4.0-11.0 [facility] Comment on above: Performed By: #### Nilam BAILEY, 1504-0, 3016-3 #### [facility] ([id number]) [address], [facility] [address] [place] [address] Glucose 1 Hr post 50 g gluco se PO [Mass/Vol]on 07-17-2023 GLU 1H POST 50G LOAD 101 mg/dL Normal 65-139 [facility] Comment on above: Performed By: #### Nilam BAILEY, 1504-0, 3016-3 #### [facility] ([id number]) [address], [facility] [address] [place] [address] TSH Qnon 07-17-2023 TSH 2.24 uIU/mL Normal 0.49-4.67 [facility] Comment on above: Performed By: #### Nilam BAILEY, 1504-0, 3016-3 #### [facility] ([id number]) [address], [address] [address] US thyroidon 02-14-2021 thyroid [facility] [place] [address] Ultrasound Report Signed Patient: Lilli Menendez MR#: [id number] 4 : 1995 Acct:[id number] Age/Sex: 26 / F ADM Date: 02/14/21 Loc: UL Room: Type: [facility] Attending Dr: Bryan Langford MD Ordering Provider: [...] Neisha Curry M.D.02/14/2021 2:49 PM Dictation Location: [place] [address] Tech: Ashley Dempsey Transcribed By: YANET 02/14/21 144 Dictated By: Neisha Curry MD 02/14/21 1447 Signed By: 02/14/21 1449 [facility] Vital Signs Date Time Vital Sign Value Performing Clinician Faci lity 08-06-2023 09:41-0500 Body mass index (BMI) [Ratio] 28.93 kg/m2 Ericka VELARDE Work Phone: [facility] 08-06-2023 09:41-0500 Body weight 64.41 kg Ericka VELARDE Work Phone: [facility] 08-06-2023 09:41-0500 Diastolic blood pressure 74 mm[Hg] Ericka VELARDE Work Phone: [facility] 08-06-2023 09:41-0500 Systolic blood pressure 106 mm[Hg] Ericka VELARDE Work Phone: [facility] Encounters Encounter Date Encounter Type Care Provider Facility Start: 09-03-2023 End: 09-03-2023 ambulatory ERICKA TINEO Not Available Start: 08-20-2023 End: 08-20-2023 ambulatory GARRETT GODOY Not Available Start: 08-06-2023 End: 08-06-2023 ambulatory ERICKA TINEO Not Available Start: 08-06-2023 End: 08-06-2023 flow sheet Ericka VELARDE Work Phone: [facility] Comment on above: Third trimester preg alea; History of labor Start: 08-04-2023 [facility] Result Encounter Garrett Godoy DO Work Phone: [facility] Unsolicited Start: 08-04-2023 [facility] Result Encounter Garrett Godoy DO Work Phone: [facility] Unsolicited Start: 08-03-2023 End: 08-04-2023 ambulatory BRYAN LANGFORD [facility] Start: 07-17-2023 End: 07-18-2023 ambulatory GARRETT GODOY [facility] Start: 07-09-2023 End: 07-09-2023 ambulatory GARRETT GODOY Not Available Start: 06-16-2023 End: 06-17-2023 ambulatory ABEER [facility] Procedures Date Procedure Procedure Detail Performing Clinician Start: 08-06-2023 Urnls dip stick/tabl et rgnt non-auto w/o micrscp Ericka VELARDE Work Phone: Start: 08-04-2023 [facility] UA (CLEAN/CATCH) BASEBALL INSPECTOR AND REPAIRER/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 Garrett Godoy DO Work Phone: Plan of Treatment Date Care Activity Detail Author Start: 08-20-2023 End: 08-20-2023 Patient encounter procedure 08/20/2023 10:50 AM EST Routine [facility] [address] [place] [address] JayneGarrett, DO [address] [place] [address] [facility] Start: 08-06-2023 End: 08-06-2024 US biophysical profile w non stress test US biophysical profile w non stress test Imaging Routine History of labor Expected: 08/06/2023 (Approximate), Expires: 08/06/2024 [facility] Comment on above: Expected: 08/06/2023 (Approximate), Expires: 08/06/2024 Start: 08-06-2023 End: 08-06-2024 US for US OB SCAN FOR GROWTH Imaging Routine History of labor Expected: 08/06/2023 (Approximate), Expires: 08/06/2024 [facility] Work Phone: Comment on above: Expected: 08/06/2023 (Approximate), Expires: 08/06/2024 Start: 08-06-2023 End: 08-06-2023 Patient encounter procedure 08/06/2023 9:30 AM EST Routine [facility] [address] [place] [id number] Ericka Tineo PA [address] [place] [address] Third trimester [facility] Comment on above: Third trimester preg alea Payers Date Payer Category Payer Unknown [id number] 2020 Unknown BCBS BCBS xxxxxx [id number] 2020-Present [phone] [address] [place] [address] [id number] 1995 Unknown [id number] 1995 Unknown [id number] 1995 Unknown [id number] 1996 Unknown [id number] 1995 Unknown [id number] 1995 Unknown [id number] 1995 Unknown [id number] Social History Date Type Detail Facility Tobacco smoking stat [facility] Tobacco smoking consumption unknown [facility] Start: 02-03-2023 [facility] Start: 1995 Sex Assigned At Not on file [facility] Gender identity Not on file [facility] [...] which includes the following prescription(s): levothyroxine and caxkygud-abt-nz-fa. Medical History: Active Ambulatory Problems Diagnosis Date [...] nursing note reviewed. Exam conducted with a appraisal technician present. Vitals: Estimated body mass index is [...] section and content) DATE CREATED AUTHOR 07/15/2021 [facility] DATE CREATED AUTHOR AUTHOR'S ORGANIZ ATION 08/04/2023 [facility] DATE CREATED AUTHOR AUTHOR'S ORGANIZ ATION 09/04/[address] [facility] dical Specialists EPIC Care Teams (unrecognized sec tion and content) Retort Firer Relationship Specialty Start Date End Date Manasa Soni DO [address] [place] [address] PCP - General Family Medicine 07/09/23 Retort Firer Relationship Specialty Start Date End Date Manasa Soni DO [address] [facility] [address] PCP - General Family Medicine 07/09/23 Reason [...] BE BASED ON THE PRIMARY CLINICAL RECORDS. [employer] provides no warranty or guarantee of the accuracy or completeness of information in this document.
[2023-09-08 14:11] VITALS: BP 117/79; PULSE 112
== END 2023-09-08 14:38 | disposition home or self-care (01) ==
LOC: FBCO 08:05 → FBC 14:08
PROVIDERS: Visit Provider Obstetrics & Gynecology
DX: O26.893 Other specified pregnancy related conditions, third trimester (principal)
CPT/HCPCS: 59025

== ENCOUNTER 2023-09-10 09:50 | Observation (INO) | payer BC, SELFPAY ==
[2023-09-10 10:06] VITALS: BP 118/67; PULSE 99
[2023-09-10 11:04] LABS: Bilirubin Urine NEGATIVE (NEGATIVE); Blood Urine NEGATIVE (NEGATIVE); Clarity Urine CLEAR (CLEAR); Color Urine LT. YELLOW (YELLOW); Glucose Urine UA NEGATIVE (NEGATIVE); Ketones Urine NEGATIVE (NEGATIVE); Leukocyte Esterase Urine LARGE (NEGATIVE); Nitrite Urine NEGATIVE (NEGATIVE); Protein Urine NEGATIVE (NEG/TRACE); Specific Gravity Urine 1.015 (1.005-1.025); Urobilinogen Urine 0.2 EU/dL (0.2-1.0)
[2023-09-10 11:12] LABS: Urine Microscopic Indicated YES
[2023-09-10 11:14] LABS: Bacteria Urine MODERATE #/HPF (NONE SEEN); Mucus Urine NONE SEEN (NONE SEEN); RBC Urine NONE SEEN #/HPF (0-2); Squamous Epithelial Cell Urine MANY #/LPF (NONE/RARE)
[2023-09-10 11:15] LABS: Urine Culture Indicated YES
[2023-09-10] MEDS: AMPICILLIN SODIUM 2,000 MG in 0.9 % SODIUM CHLORIDE 100 ML 200 MG IV (12:09)
[2023-09-10] MEDS: 0.9 % SODIUM CHLORIDE 1,000 ML 200 ML IV (12:09)
--- NOTE | 2023-09-10 14:30 | US_ITS ---
The [address] [address] Patient Name: LILLI COSBY MRN: [facility]:[id number] date: 1995 Sex: F Assigned Patient Location: [facility] Current Patient Location: [facility] Accession/Order Number: [id number] Exam Date: 09/10/2023 14:40 Report Date: 09/10/2023 15:30 At the request of: CRISTHIAN CORDOVA Procedure: US OB BPP w non-stress Ultrasound biophysical profile CLINICAL: Contractions. TECHNIQUE: Dedicated ultrasound imaging of the fetus was performed to include the clothing trades workers's evaluation of biophysical profile. FINDINGS: Comparison: 09/04/2023 FETUS: There is a single living intrauterine fetus in vertex presentation. heart rate of 147 beats per minute. PLACENTA: The placenta is anterior in location. AMNIOTIC FLUID: The amniotic fluid index is 11.5 cm, with maximum vertical pocket of 4.5 cm. BIOPHYSICAL PROFILE: motion: 2 out of 2. tone: 2 out of 2. breathin out of 2. Amniotic fluid volume: 2 out of 2. Total score: 8 out of 8. OTHER FINDINGS: None. US/US OB BPP w non-stress IMPRESSION: 1. Single viable fetus in vertex presentation with heart rate of 147 beats per minute. 2. Total biophysical profile score of 8 out of 8. 3. Amniotic fluid index of 11.5 cm, with maximum vertical pocket of 4.5 cm. Electronically authenticated by: YEIMI FIERRO Date: 09/10/2023 15:30
--- NOTE | 2023-09-10 14:30 | P.OBPN_ITS ---
OB - PN: Subj Subjective Patient comments: other (PATIENT PRESENTED TO MATERNITY C/O CONTRACTIONS, H/O PTL AND DELIVERY BY CS PRIOR , NO LOF, NO BLEEDING) Narrative: PATIENT HAVING CONTRACTIONS WHICH ARE MILD EVERY 3 TO 7 MINUTES. SHE HAS SUPRAPUBIC DISCOMFORT. THE UA DEMONSTRATES A UTI. THE HEART TRACING IS CAT I. CERVIX IS CLOSED. Exam Narrative Exam Narrative: COMPLAINS OF CTXS WITHOUT LOF OR BLEEDING, BABY MOVING WELL. CAME IN BECAUSE HAS A HISTORY OF CS AT 32 WEEKS. Constitutional Vital Signs, click to edit/add: Last Vital Signs Pulse 99 H 09/10/23 10:06 BP 118/67 09/10/23 10:06 Documenting provider has reviewed patient's vital signs: yes Common normals: no apparent distress, average body habitus, oriented x3, healthy appearing, alert and well nourished General appearance: cooperative, comfortable, well kempt and well developed Orientation/consciousness: Yes awake, Yes oriented to person, Yes oriented to place and Yes oriented to time HENMT Common normals: normocephalic and head/scalp atraumatic Eye Pupil: PERRL and accommodation reflex normal Neck & C-Spine Common normals: full ROM and supple Respiratory Common normals: normal respiratory effort Cardio Common normals: regular rate and regular rhythm GI Common normals: Normal to inspection, nondistended, normoactive bowel sounds present, soft to palpation and non-tender Common normals: no CVA tenderness Extremity Common normals: normal to inspection, full ROM and no calf tenderness Neuro Common normals: oriented x3, moves all extremities, no focal motor deficits and no sensory deficits noted Psych Common normals: mental status grossly normal, thought process normal, cooperat ilda, affect normal and speech normal Results Labs Labs: Urine 09/10/23 Range/Units 10:05 Urine Color Lt. yellow (YELLOW) Urine Clarity Clear (CLEAR) Urine pH 8.0 (5.0-9.0) Ur Specific [place] 1.015 (1.005-1.025) Urine Protein Negative (NEG/TRACE) mg/dL Urine Glucose (UA) Negative (NEGATIVE) mg/dL OB - PN: A/P Assessment and Plan (1) contractions: Assessment and Plan: IRREGULAR EVERY 2 TO 7 MINUTES. MILD. CERVIX CLOSED. NO LOF. NO BLEEDING. (2) labor with delivery: Assessment and Plan: HISTORY OF DELIVERY AT 32 WEEKS BY CS. PATIENT WAS CONCERNED BECAUSE HAD SUPRAPUBIC TENDERNESS AND WAS WORRIED ABOUT PRIOR CS SCAR. Plan URINALYSIS REVEALED UTI. EXPLAINED HOW A UTI CAN CAUSE UTERINE CONTRACTIONS HOWEVER THESE CONTRACTIONS ARE NOT CHANGING THE CERVIX. EXPLAINED THAT CONTRAC TIONS WHICH INCREASE RISK OF UTERINE RUPTURE ARE VERY PAINFUL AND FREQUENT FROM Q 2 TO Q 3 MIN. HER CONTRACTIONS ARE MILD AND SPACED OUT THUS WITHOUT A SIGNIFICANT RISK FOR UTERINE RUPTURE. THE HEART WAS CATEGORY I. THIS PATIENT HAS BEEN ON PELVIC REST. PLAN: (1) BEGIN LR: 500 CC BOLUS AND RUN REMAINDER OF IVF IN AT 200 CC PER HOUR. SECOND BAG OF IVF TO INFUSE AT 125 CC PER HOUR. (2) AMPICILLIN 2 GRAM IV FIRST DOSE. WILL BE GIVEN A SCRIPT FOR PO AMPICILLIN 500 MG TID FOR SEVEN DAYS (3) CONTINUE PELVIC REST (4) GIVE TERBUTALINE 25 MCG SUBCU ... MAY REPEAT ONE TIME ONLY IN 20 MINUTES IF NEEDED TO STOP OR SPACE OUT CONTRACTIONS TO < 6 PER HOUR (5) HAD BPP SCHEDULED TOMORROW WHICH WILL BE DONE TODAY PATIENT ALREADY ON UNIT. TO THAT WILL ADD CERVICAL LENGTH. (6) IF BPP, CERVICAL LENGTH WNL AND CONTRACTIONS GONE OR LESS THAN 6 PER HOUR WILL SEND HOME WITH FOLLOW UP PREVIOUSLY SCHEDULED IN THE OFFICE Time Spent with Patient Time: Total time spent is greater than 50% in coordination of care (as documented) at patient's floor/unit and/or counseling patient: Total time spent with greater than 50% in coordination of care (as documented) at patient's floor/unit and/or counseling patient: less than 15 minutes
--- NOTE | 2023-09-10 14:32 | US_ITS ---
[place] [id number] Patient Name: LILLI COSBY MRN: [id number] date: 1995 Sex: F Assigned Patient Location: [facility] Current Patient Location: [facility] Accession/Order Number: [id number] Exam Date: 09/10/2023 14:40 Report Date: 09/10/2023 15:26 At the request of: CRISTHIAN CORDOVA Procedure: US OB cervical length EXAMINATION: US OB cervical length HISTORY: CONTRACTIONS COMPARISON: Ultrasound OB biophysical 09/04/2023 FINDINGS: Close cervix 5.5 cm in length. US/US OB cervical length IMPRESSION: 1. Cervix is closed and 5.5 cm in length. Electronically authenticated by: HARRY WAN Date: 09/10/2023 15:26
[2023-09-10 14:40] VITALS: BP 106/57; PULSE 99
[2023-09-10] MEDS: TERBUTALINE SULFATE 1 MG/ML VIAL 0.25 MG SUBQ (14:42)
== END 2023-09-10 17:40 | disposition home or self-care (01) ==
PROVIDERS: Obstetrics & Gynecology; Admitting Provider Obstetrics & Gynecology; Visit Provider Obstetrics & Gynecology
DX: O60.03 Preterm labor without delivery, third trimester (principal); O23.43 Unspecified infection of urinary tract in pregnancy, third trimester; N39.0 Urinary tract infection, site not specified; O34.219 Maternal care for unspecified type scar from previous cesarean delivery; O09.213 Supervision of pregnancy with history of pre-term labor, third trimester; Z3A.33 33 weeks gestation of pregnancy
CPT/HCPCS: 76817; 76818; 81001; 87086; 96372; 96374; G0378; G0379

== ENCOUNTER 2023-09-15 07:16 | Outpatient (OUT) | payer BC, SELFPAY ==
--- OUTSIDE RECORDS SUMMARY | 2023-09-15 07:19 | XMS_ITS | CCD ---
Author Organization [facility] Care Team Providers Care Twisting Department End Finder Name Role Phone ANGE LOUIS Referring Unavailable [...] before bedtime. 0 08/06/2023 Discontinued (Therapy completed) Jzutwfov-Ajs-Xw-FA ( 1 + IRON PO) (3 sources) Magkpota-Xvl-Mj-FA ( 1 + IRON PO) Take by [...] [facility] Glucose, UA Negative Negative - 1999(110) [...] UA Positive Negative - 1999(20) ++++ mg/dL [facility] Spec Grav, UA 1.030 1 - 1.03 [facility] Urobilinogen, UA 1.0 0.2 - 12 mg/dL [facility] UA (CLEAN/CATCH) RESIDENTIAL DESIGNER/JING RO IF IND.on 08-04-2023 BILIRUBIN URINE Negative NEGATIVE [facility] BLOOD URINE TRACE-I NEGATIVE [facility] Clarity (U) CLEAR CLEAR [facility] Color (U) YELLOW YELLOW [facility] GLUCOSE URINE UA Negative NEGATIVE mg/dL [facility] Interpretation and review of laboratory results Abnormal [facility] Ketones Ql (U) 15 mg/dL Abnormal NEGATIVE [facility] Leukocyte esterase Test strip Ql (U) SMALL Abnormal NEGATIVE [facility] NITRITE URINE Negative NEGATIVE [facility] Health care pH (U) 6.0 [pH] 5.0 - 9.0 [facility] PROTEIN URINE TRACE NEG/TRACE mg/dL [facility] SPECIFIC GRAVITY URINE 1.025 1.005 - 1.025 [facility] URINE MICROSCOPIC INDICATED YES [facility] UROBILINOGEN URINE 1.0 EU/dL 0.2 - 1.0 EU/dL [facility] FREE T3on 08-03-2023 Free T3 [Mass/Vol] 3.27 pg/mL Normal 2.50-3.90 [facility] Comment on above: Performed By: #### Marifer COTTO, 0 #### [facility] ([id number]) [address] [facility], [address] [address] THYROID PROFILEon 08-03-2023 Free T4 [Mass/Vol] 0.66 ng/dL Normal 0.61-1.60 [facility] Comment on above: Performed By: #### T KIRTI, 0 #### [facility] ([id number]) [address] [facility], [facility] [address] [place] [address] TSH 1.74 uIU/mL Normal 0.49-4.[address] [facility] Comment on above: Performed By: #### T KIRTI, 3050 #### [facility] ([id number]) [address] [facility], [address] [place] [address] CBC AND AUTO DIFFon 07-17-19 ABSOLUTE BASOPHIL 0.0 X10E9/L Normal 0.0-0.2 [facility] Comment on above: Performed By: #### Nilam BAILEY, 1504-0, 3016-3 #### [facility] ([id number]) [address], [facility] [address] [place] [address] ABSOLUTE NEUTROPHIL 7.1 X10E9/L High 1.5-6.6 [facility] Comment on above: Performed By: #### Nilam BAILEY, 1504-0, 3016-3 #### [facility] ([id number]) [address], [facility] [address] [place] [address] Basophils/100 WBC (Bld) 0.3 % Normal [facility] Comment on above: Performed By: #### Nilam BAILEY, 1504-0, 3016-3 #### [facility] ([id number]) [address], [address] [place] [address] Eosinophils (Bld) [#/Vol] 0.1 10*3/uL Normal 0.0-0.[address] [facility] Comment on above: Performed By: #### Nilam BAILEY, 1504-0, 3016-3 #### [facility] ([id number]) [address], [address] [place] [address] Eosinophils/100 WBC (Bld) 1.0 % Normal [facility] Comment on above: Performed By: #### Nilam BAILEY, 1504-0, 3016-3 #### [facility] ([id number]) [address], [facility] [address] [place] [address] Erythrocyte distribution width (RBC) [Ratio] 14.1 % Normal 11.5-15.[address] [facility] Comment on above: Performed By: #### Nilam BAILEY, 1504-0, 3016-3 #### [facility] ([id number]) [address], [address] [place] [address] Hematocrit (Bld) [Volume fraction] 34.5 % Low 35-[address] [facility] Comment on above: Performed By: #### Nilam BAILEY, 1504-0, 3016-3 #### [facility] ([id number]) [address], [facility] [address] [place] [address] Hemoglobin (Bld) [Mass/Vol] 11.5 g/dL Low 11.7-15.[address] [facility] Comment on above: Performed By: #### Nilam BAILEY, 1504-0, 3016-3 #### [facility] ([id number]) [address], [facility] [address] [place] [address] Lymphocytes (Bld) [#/Vol] 2.1 10*3/uL Normal 1.0-3.[address] [facility] Comment on above: Performed By: #### Nilam BAILEY, 1504-0, 3016-3 #### [facility] ([id number]) [address], [facility] [address] [place] [address] Lymphocytes/100 WBC (Bld) 21.4 % Normal [facility] Comment on above: Performed By: #### Nilam BAILEY, 1504-0, 3016-3 #### [facility] ([id number]) [address], [address] [place] [address] MCH (RBC) [Entitic mass] 28.9 pg Normal 27-[address] [facility] Comment on above: Performed By: #### Nilam BAILEY, 1504-0, 3016-3 #### [facility] ([id number]) [address], [address] [place] [address] MCHC (RBC) [Mass/Vol] 33.3 g/dL Normal 32-[address] [facility] Comment on above: Performed By: #### Nilam BAILEY, 1504-0, 3016-3 #### [facility] ([id number]) [address], [address] [place] [address] MCV (RBC) [Entitic vol] 87 fL Normal 80-[address] [facility] Comment on above: Performed By: #### Nilam BAILEY, 1504-0, 3016-3 #### [facility] ([id number]) [address], [address] [place] [address] Monocytes (Bld) [#/Vol] 0.6 10*3/uL Normal 0-0.[address] [facility] Comment on above: Performed By: #### Nilam BAILEY, 1504-0, 3016-3 #### [facility] ([id number]) [address], [address] [place] [address] Monocytes/100 WBC (Bld) 6.1 % Normal [facility] Comment on above: Performed By: #### Nilam BAILEY, 1504-0, 6-3 #### [facility] ([id number]) [address], [address] [place] [address] Neutrophils/100 WBC (Bld) 71.2 % Normal [facility] Comment on above: Performed By: #### Nilam BAILEY, 1504-0, 3 #### [facility] ([id number]) [address], [address] [place] [address] Platelet mean volume (Bld) [Entitic vol] 7.8 fL Normal 7-[address] [facility] Comment on above: Performed By: #### Nilam BAILEY, 1504-0, 6-3 #### [facility] ([id number]) [address], [address] [place] [address] Platelets (Bld) [#/Vol] 374 10*3/uL Normal 150-[address] [facility] Comment on above: Performed By: #### Nilam BAILEY, 1504-0, 3016-3 #### [facility] ([id number]) [address], [address] [place] [address] RBC COUNT 3.97 X10E12/L Normal 3.80-5.[address] [facility] Comment on above: Performed By: #### Nilam BAILEY, 1504-0, 3016-3 #### [facility] ([id number]) [address], [facility] [address] [place] [address] WBC (Bld) [#/Vol] 9.9 10*3/uL Normal 4.0-11.0 [facility] Comment on above: Performed By: #### Nilam BAILEY, 1504-0, 3016-3 #### [facility] ([id number]) [address], [facility] [address] [place] [address] Glucose 1 Hr post 50 g gluco se PO [Mass/Vol]on 07-17-2023 GLU 1H POST 50G LOAD 101 mg/dL Normal 65-139 [facility] Comment on above: Performed By: #### Nilam BAILEY, 1504-0, 3016-3 #### [facility] ([id number]) [address], [facility] [address] [place] [address] TSH Qnon 07-17-2023 TSH 2.24 uIU/mL Normal 0.49-4.[address] [facility] Comment on above: Performed By: #### Nilam BAILEY, 1504-0, 3016-3 #### [facility] ([id number]) [address], [address] [address] [place] thyroidon 02-14-2021 thyroid [facility] [place] [address] Ultrasound Report Signed Patient: Lilli Menendez MR#: [id number] 4 : 1995 Acct:[id number] Age/Sex: 26 / F ADM Date: 02/14/21 Loc: UL Room: Type: [facility] Attending Dr: Bryan Langford MD [...] Neisha Curry M.D.02/14/2021 2:49 PM Dictation Location: [place] [address] Tech: Ashley Dempsey Transcribed By: YANET 02/14/21 144 Dictated By: Neisha Curry MD 02/14/21 1447 Signed By: 02/14/21 1449 [facility] Vital Signs Date Time Vital Sign [...] pressure 106 mm[Hg] Ericka VELARDE Work Phone: [facility] Healthcare Encounters Encounter Date Encounter Type Care Provider Facility Start: 09-03-2023 End: 09-03-2023 ambulatory ERICKA TINEO Not Available Start: 08-20-2023 End: 08-20-2023 ambulatory GARRETT GODOY Not Available Start: 08-06-2023 End: 08-06-2023 ambulatory ERICKA TINEO Not Available Start: 08-06-2023 End: 08-06-2023 flow sheet Ericka VELARDE Work Phone: [facility] OB Comment on above: Third trimester preg alea; History of labor Start: 08-04-2023 [facility] Result Encounter Garrett Godoy DO Work Phone: [facility] Unsolicited Start: 08-04-2023 [facility] Result Encounter Garrett Godoy DO Work Phone: [facility] Unsolicited Start: 08-03-2023 End: 08-04-2023 ambulatory BRYAN LANGFORD [facility] Start: 07-17-2023 End: 07-18-2023 ambulatory GARRETT GODOY [facility] Start: 07-09-2023 End: 07-09-2023 ambulatory GARRETT GODOY Not Available Start: 06-16-2023 End: 06-17-2023 ambulatory [facility] Procedures Date Procedure Procedure Detail Performing Clinician Start: 08-06-2023 Urnls dip stick/tabl et rgnt non-auto w/o micrscp Ericka VELARDE Work Phone: Start: 08-04-2023 [facility] UA (CLEAN/CATCH) RESIDENTIAL DESIGNER/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 Garrett Godoy DO Work Phone: Plan of Treatment Date Care Activity Detail Author Start: 08-20-2023 End: 08-20-2023 Patient encounter procedure 08/20/2023 10:50 AM EST Routine [facility] [address] [place] [address] JayneGarrett, DO [address] [place] [address] [facility] Start: 08-06-2023 End: 08-06-2024 US biophysical profile w non stress test US biophysical profile w non stress test Imaging Routine History of labor Expected: 08/06/2023 (Approximate), Expires: 08/06/2024 [facility] Healthcare Comment on above: Expected: 08/06/2023 (Approximate), Expires: 08/06/2024 Start: 08-06-2023 End: 08-06-2024 US for US OB SCAN FOR GROWTH Imaging Routine History of labor Expected: 08/06/2023 (Approximate), Expires: 08/06/2024 [facility] Work Phone: Comment on above: Expected: 08/06/2023 (Approximate), Expires: 08/06/2024 Start: 08-06-2023 End: 08-06-2023 Patient encounter procedure 08/06/2023 9:30 AM EST Routine [facility] [address] [id number] Ericka Tineo PA [address] [place] [address] Third trimester [facility] Comment on above: Third trimester preg alea Payers Date Payer Category Payer Unknown [id number] 2020 Unknown BCBS BCBS xxxxxx [id number] 2020-Present [phone] [address] [place] [address] [id number] 1996 Unknown [id number] 1996 Unknown [id number] 1996 Unknown [id number] 1996 Unknown [id number] 1996 Unknown [id number] 1996 Unknown [id number] 1996 Unknown [id number] Social History Date Type Detail Facility Tobacco smoking stat [facility] Tobacco smoking consumption unknown [facility] Start: 02-03-2023 [facility] Start: 1995 Sex Assigned At Not [...] which includes the following prescription(s): levothyroxine and yrjyhqtd-xes-pz-fa. Medical History: Active Ambulatory Problems Diagnosis Date [...] nursing note reviewed. Exam conducted with a journeyman pipe welder present. Vitals: Estimated body mass index is [...] by SYD Mercer on behalf of: SYD Mrecer documented in this encounter [facility] Evaluation [...] section and content) DATE CREATED AUTHOR 07/15/2021 [facility] DATE CREATED AUTHOR AUTHOR'S ORGANIZ ATION 08/04/2023 [facility] DATE CREATED AUTHOR AUTHOR'S ORGANIZ ATION 09/04/2023 [facility] EPIC Care Teams (unrecognized sec tion and content) Twisting Department End Finder Relationship Specialty Start Date End Date Manasa Soni DO [address] [place] [address] PCP - General Family Medicine 07/09/23 Twisting Department End Finder Relationship Specialty Start Date End Date Manasa Soni DO [address] [facility] [address] PCP - General Family Medicine 07/09/23 Reason [...] BE BASED ON THE PRIMARY CLINICAL RECORDS. [employer] provides no warranty or guarantee of the accuracy or completeness of information in this document.
[2023-09-15 14:06] VITALS: BP 119/62; PULSE 106
== END 2023-09-15 14:30 | disposition home or self-care (01) ==
LOC: FBCO 07:16 → FBC 14:02
PROVIDERS: Visit Provider Obstetrics & Gynecology
DX: O09.213 Supervision of pregnancy with history of pre-term labor, third trimester (principal); Z3A.34 34 weeks gestation of pregnancy
CPT/HCPCS: 59025

== ENCOUNTER 2023-09-22 08:02 | Outpatient (OUT) | payer BC, SELFPAY ==
--- OUTSIDE RECORDS SUMMARY | 2023-09-22 08:05 | XMS_ITS | CCD ---
Author Organization [facility] Care Team Providers Care Action Installer Name Role Phone ANGE LOUIS Referring Unavailable SANDRA MANASA K Primary Care Unavailable GARRETT GODOY Referring Unavailable RUMSCHBRIDGETG MANASA K Primary Care Unavailable BRYAN LANGFORD Referring Unavailable RUMSCHLAG, MANASA K Primary Care Unavailable Rumschlag Manasa PATIÑO Primary Care Provider GARRETT GODOY Attending Unavailable ERICKA TINEO Attending Unavailable GARRETT GODOY Attending Unavailable ERICKA TINEO Attending Unavailable ERICKA TINEO Attending Unavailable Medications [...] before bedtime. 0 08/06/2023 Discontinued (Therapy completed) Eobnzyzb-Ffv-De-FA ( 1 + IRON PO) (3 sources) Nmqvvsad-Ioi-Dc-FA ( 1 + IRON PO) Take by [...] [facility] Glucose, [facility]A Negative Negative [...] Hospital pH, UA 6.5 5 - 9 [facility] Protein, [facility]A Positive Negative - 1999(20) ++++ mg/dL [facility] Spec Grav, UA 1.030 1 - 1.03 [facility] Urobilinogen, UA 1.0 0.2 - 12 mg/dL [facility] UA (CLEAN/CATCH) TENT ASSEMBLER/JING RO IF IND.on 08-04-2023 BILIRUBIN URINE Negative NEGATIVE [facility] BLOOD URINE TRACE-I NEGATIVE [facility] Clarity (U) CLEAR CLEAR [facility] Color (U) YELLOW YELLOW [facility] GLUCOSE URINE UA Negative NEGATIVE mg/dL [facility] Interpretation and review of laboratory results Abnormal [facility] Healthcare Ketones Ql (U) 15 mg/dL Abnormal NEGATIVE [facility] Healt hcare Leukocyte esterase Test strip Ql (U) SMALL Abnormal NEGATIVE [facility] NITRITE URINE Negative NEGATIVE [facility] Health care pH (U) 6.0 [pH] 5.0 - 9.0 [facility] PROTEIN URINE TRACE NEG/TRACE mg/dL [facility] SPECIFIC GRAVITY URINE 1.025 1.005 - 1.025 [facility] URINE MICROSCOPIC INDICATED YES [facility] UROBILINOGEN URINE 1.0 EU/dL 0.2 - 1.0 EU/dL [facility] Healthcar e FREE T3on 08-03-2023 Free T3 [Mass/Vol] 3.27 pg/mL Normal 2.50-3.90 [facility] Comment on above: Performed By: #### T KIRTI, 0 #### [facility] ([id number]) [address] [facility] [address] [place] [address] THYROID PROFILEon 08-03-2023 Free T4 [Mass/Vol] 0.66 ng/dL Normal 0.61-1.60 [facility] Comment on above: Performed By: #### T HYR, 3050-0 #### [facility] ([id number]) [address] [facility] [address] [place] [address] TSH 1.74 uIU/mL Normal 0.49-4.67 [facility] Comment on above: Performed By: #### T KILOR, 3050-0 #### [facility] ([id number]) [address] [place] [address] CBC AND AUTO DIFFon 07-17-19 ABSOLUTE BASOPHIL 0.0 X10E9/L Normal 0.0-0.2 [facility] Comment on above: Performed By: #### Nilam BIALEY, 1504-0, 3016-3 #### [facility] ([id number]) [address] [place] [address] ABSOLUTE NEUTROPHIL 7.1 X10E9/L High 1.5-6.6 [facility] Comment on above: Performed By: #### Nilam BAILEY, 1504-0, 3016-3 #### [facility] ([id number]) [address] [place] [address] Basophils/100 WBC (Bld) 0.3 % Normal [facility] Comment on above: Performed By: #### Nilam BAILEY, 1504-0, 301-3 #### [facility] ([id number]) [address] [place] [address] Eosinophils (Bld) [#/Vol] 0.1 10*3/uL Normal 0.0-0.4 [facility] Comment on above: Performed By: #### Nilam BAILEY, 1504-0, 3016-3 #### [facility] ([id number]) [address] [place] [address] Eosinophils/100 WBC (Bld) 1.0 % Normal [facility] Comment on above: Performed By: #### Nilam BAILEY, 1504-0, 3016-3 #### [facility] ([id number]) [address] [place] [address] Erythrocyte distribution width (RBC) [Ratio] 14.1 % Normal 11.5-15.0 [facility] Comment on above: Performed By: #### Nilam BAILEY, 1504-0, 3016-3 #### [facility] ([id number]) [address] [place] [address] Hematocrit (Bld) [Volume fraction] 34.5 % Low 35-47 [facility] Comment on above: Performed By: #### Nilam BAILEY, 1504-0, 3016-3 #### [facility] ([id number]) [address], [facility] [address] [place] [address] Hemoglobin (Bld) [Mass/Vol] 11.5 g/dL Low 11.7-15.5 [facility] Comment on above: Performed By: #### Nilam BAILEY, 1504-0, 3016-3 #### [facility] ([id number]) [address], [facility] [address] [place] [address] Lymphocytes (Bld) [#/Vol] 2.1 10*3/uL Normal 1.0-3.5 [facility] Comment on above: Performed By: #### Nilam BAILEY, 1504-0, 3016-3 #### [facility] ([id number]) [address], [facility] [address] [place] [address] Lymphocytes/100 WBC (Bld) 21.4 % Normal [facility] Comment on above: Performed By: #### Nilam BAILEY, 1504-0, 3016-3 #### [facility] ([id number]) [address] [place] [address] MCH (RBC) [Entitic mass] 28.9 pg Normal 27-34 [facility] Comment on above: Performed By: #### Nilam BAILEY, 1504-0, 3016-3 #### [facility] ([id number]) [address], [facility] [address] [place] [address] MCHC (RBC) [Mass/Vol] 33.3 g/dL Normal 32-36 [facility] Comment on above: Performed By: #### Nilam BAILEY, 1504-0, 3016-3 #### [facility] ([id number]) [address] [place] [address] MCV (RBC) [Entitic vol] 87 fL Normal 80-100 [facility] Comment on above: Performed By: #### Nilam BAILEY, 1504-0, 3016-3 #### [facility] ([id number]) [address] [place] [address] Monocytes (Bld) [#/Vol] 0.6 10*3/uL Normal 0-0.9 [facility] Comment on above: Performed By: #### Nilam BAILEY, 1504-0, 3016-3 #### [facility] ([id number]) [address] [place] [address] Monocytes/100 WBC (Bld) 6.1 % Normal [facility] Comment on above: Performed By: #### Nilam BAILEY, 1504-0, 6-3 #### [facility] ([id number]) [address] [place] [address] Neutrophils/100 WBC (Bld) 71.2 % Normal [facility] Comment on above: Performed By: #### Nilam BAILEY, 1504-0, 3016-3 #### [facility] ([id number]) [address] [place] [address] Platelet mean volume (Bld) [Entitic vol] 7.8 fL Normal 7-12 [facility] Comment on above: Performed By: #### Nilam BAILEY, 1504-0, 3016-3 #### [facility] ([id number]) [address] [place] [address] Platelets (Bld) [#/Vol] 374 10*3/uL Normal 150-450 [facility] Comment on above: Performed By: #### Nilam BAILEY, 1504-0, 3016-3 #### [facility] ([id number]) [address] [place] [address] RBC COUNT 3.97 X10E12/L Normal 3.80-5.20 [facility] Comment on above: Performed By: #### Nilam BAILEY, 1504-0, 3016-3 #### [facility] ([id number]) [address] [address] [place] [address] WBC (Bld) [#/Vol] 9.9 10*3/uL Normal 4.0-11.0 [facility] Comment on above: Performed By: #### Nilam BAILEY, 1504-0, 3016-3 #### [facility] ([id number]) [address] [address] [place] [address] Glucose 1 Hr post 50 g gluco se PO [Mass/Vol]on 07-17-2023 GLU 1H POST 50G LOAD 101 mg/dL Normal 65-139 [facility] Comment on above: Performed By: #### Nilam BAILEY, 1504-0, 3016-3 #### [facility] ([id number]) [address] [address] [place] [address] TSH Qnon 07-17-2023 TSH 2.24 uIU/mL Normal 0.49-4.67 [facility] Comment on above: Performed By: #### Nilam BAILEY, 1504-0, 3016-3 #### [facility] ([id number]) [address] [address] [place] [address] US thyroidon 02-14-2021 thyroid [facility] [place] [address] Ultrasound Report Signed Patient: Lilli Menendez MR#: [id number] 4 : 1995 Acct:[id number] Age/Sex: 26 / F ADM Date: 02/14/21 Loc: Room: Type: [facility] Attending Dr: Bryan Langford MD Ordering [...] M.D.02/14/2021 2:49 PM Dictation Location: [place] [address] Tech: Ashley Dempsey Transcribed By: YANET 02/14/21 1449 Dictated By: Neisha Curry MD 02/14/21 144 Signed By: 02/14/21 144 [facility] Vital Signs Date Time Vital Sign [...] Date Encounter Type Care Provider Facility Start: 09-17-2023 End: 09-17-2023 ambulatory ERICKA TINEO Not Available Start: 09-03-2023 End: 09-03-2023 ambulatory ERICKA TINEO Not Available Start: 08-20-2023 End: 08-20-2023 ambulatory GARRETT GODOY Not Available Start: 08-06-2023 End: 08-06-2023 ambulatory ERICKA TINEO Not Available Start: 08-06-2023 End: 08-06-2023 flow sheet Ericka VELARDE Work Phone: [facility] Comment on above: Third trimester preg alea; History of labor Start: 08-04-2023 [facility] Result Encounter Garrett Godoy DO Work Phone: [facility] Unsolicited Start: 08-04-2023 [facility] Result Encounter Garrett Godoy DO Work Phone: [facility] Unsolicited Start: 08-03-2023 End: 08-04-[address] Start: 07-17-2023 End: 07-18-2023 ambulatory GARRETT GODOY [facility] Start: 07-09-2023 End: 07-09-2023 ambulatory GARRETT GODOY Not Available Start: 06-16-2023 End: 06-17-2023 ambulatory [facility] Procedures Date Procedure Procedure Detail Performing Clinician Start: 08-06-2023 Urnls dip stick/tabl et rgnt non-auto w/o micrscp Ericka VELARDE Work Phone: Start: 08-04-2023 [facility] UA (CLEAN/CATCH) TENT ASSEMBLER/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 Garrett Ewingzio DO Work Phone: Plan of Treatment Date Care Activity Detail Author Start: 08-20-2023 End: 08-20-2023 Patient encounter procedure 08/20/2023 10:50 AM EST Routine [facility] [address] [place] [address] Garrett Godoy, DO [address] [place] [address] [facility] Start: 08-06-2023 End: 08-06-2024 [...] AM EST Routine [facility] [address] [place] [address] Ericka Tineo PA [address] [place], [place] [id number] Third trimester [facility] Comment on above: Third trimester preg alea Payers Date Payer Category Payer Unknown [id number] 2020 Unknown BCBS BCBS xxxxxx [id number] 2020-Present [phone] [address] [place] [address] [id number] 1996 Unknown [id number] 1996 Unknown [id number] 1996 Unknown [id number] [id number] 1996 Unknown [id number] [id number] 1996 Unknown [id number] [id number] 1996 Unknown [id number] [id number] 1996 Unknown [id number] [id number] 1996 Unknown [id number] [id number] Social History Date Type Detail Facility Tobacco smoking stat [facility] Tobacco smoking consumption unknown [facility] [...] which includes the following prescription(s): levothyroxine and iqaerwdp-gdr-fx-fa. Medical History: Active Ambulatory Problems Diagnosis Date [...] nursing note reviewed. Exam conducted with a transportation inspector present. Vitals: Estimated body mass index is [...] section and content) DATE CREATED AUTHOR 07/15/2021 [facility] DATE CREATED AUTHOR AUTHOR'S ORGANIZ ATION 08/04/2023 [facility] DATE CREATED AUTHOR AUTHOR'S ORGANIZ ATION 09/18/2023 [facility] [employer] Care Teams (unrecognized sec tion and content) Action Installer Relationship Specialty Start Date End Date Manasa Soni DO [address] [place] [address] PCP - General Family Medicine 07/09/23 Action Installer Relationship Specialty Start Date End Date Manasa Soni DO [address] [place] [address] PCP - General Family Medicine 07/09/23 Reason [...] BE BASED ON THE PRIMARY CLINICAL RECORDS. [employer] provides no warranty or guarantee of the accuracy or completeness of information in this document.
[2023-09-22 14:06] VITALS: BP 115/60; PULSE 93
== END 2023-09-22 15:12 | disposition home or self-care (01) ==
LOC: US 08:02 → FBC 14:05
PROVIDERS: Visit Provider Obstetrics & Gynecology
DX: O09.219 Supervision of pregnancy with history of pre-term labor, unspecified trimester (principal); Z3A.00 Weeks of gestation of pregnancy not specified
CPT/HCPCS: 59025

== ENCOUNTER 2023-09-22 08:03 | Outpatient (OUT) | payer BC, SELFPAY ==
--- OUTSIDE RECORDS SUMMARY | 2023-09-18 07:09 | XMS_ITS | CCD ---
Author Organization [facility] Care Team Providers Care Machine Heel Seat Fitter Name Role Phone ANGE LOUIS Referring Unavailable [...] before bedtime. 0 08/06/2023 Discontinued (Therapy completed) Dmlsepco-Kka-Uq-FA ( 1 + IRON PO) (3 sources) Wbzaimsz-Vxb-Ji-FA ( 1 + IRON PO) Take by [...] UA Negative Negative - 4(70) +++ mg/dL [facility] Blood, UA Positive Negative - 50 Efren/mcL [facility] Clarity, UA Clear [facility] Color, UA Yellow [facility] Glucose, UA Negative Negative - 1999(110) ++++ mg/dL [facility] Interpretation and review of laboratory results Abnormal [facility] Ketones, UA Negative Negative - 160(16) ++++ mg/dL [facility] Leukocytes, UA Positive Negative - 500+++ Luci/mcL [facility] Nitrite, UA Negative Negative - Positive [facility] pH, UA 6.5 5 - 9 [facility] Protein, UA Positive Negative - 1999(20) ++++ mg/dL [facility] Spec Grav, UA 1.030 1 - 1.03 [facility] Urobilinogen, UA 1.0 0.2 - 12 mg/dL [facility] UA (CLEAN/CATCH) FOUNDRY WORKER GENERAL/JING RO IF IND.on 08-04-2023 BILIRUBIN URINE Negative NEGATIVE [facility] BLOOD URINE TRACE-I NEGATIVE [facility] Clarity (U) CLEAR CLEAR [facility] Color (U) YELLOW YELLOW [facility] GLUCOSE URINE UA Negative NEGATIVE mg/[facility]ation and review of laboratory results Abnormal [facility] Ketones Ql (U) 15 mg/dL Abnormal NEGATIVE [facility] Leukocyte esterase Test strip Ql (U) SMALL Abnormal NEGATIVE [facility] NITRITE URINE Negative NEGATIVE [facility] Health care pH (U) 6.0 [pH] 5.0 - 9.0 [facility] PROTEIN URINE TRACE NEG/TRACE mg/dL [facility] SPECIFIC GRAVITY URINE 1.025 1.005 - 1.025 [facility] URINE MICROSCOPIC INDICATED YES [facility] UROBILINOGEN URINE 1.0 EU/dL 0.2 - 1.0 EU/dL [facility] FREE T3on 08-03-2023 Free T3 [Mass/Vol] 3.27 pg/mL Normal 2.50-3.90 [facility] Comment on above: Performed By: #### Marifer COTTO, 0 #### [facility] ([id number]) [address] [facility], [address] [address] THYROID PROFILEon 08-03-2023 Free T4 [Mass/Vol] 0.66 ng/dL Normal 0.61-1.60 [facility] Comment on above: Performed By: #### T KIRTI, 0 #### [facility] ([id number]) [address] [facility], [facility] [address] [place] [address] TSH 1.74 uIU/mL Normal 0.49-4.67 [facility] Comment on above: Performed By: #### T KIRTI, 3050 #### [facility] ([id number]) [address] [facility], [address] [place] [address] CBC AND AUTO DIFFon 07-17-19 ABSOLUTE BASOPHIL 0.0 X10E9/L Normal 0.0-0.2 [facility] Comment on above: Performed By: #### Nilam BAILEY, 1504-0, 3016-3 #### [facility] ([id number]) [address], [facility] [address] [place] [address] ABSOLUTE NEUTROPHIL 7.1 X10E9/L High 1.5-6.6 [facility] Comment on above: Performed By: #### Nilam BAILEY, 1504-0, 3016-3 #### [facility] ([id number]) [address], [facility] [address] [place] [address] Basophils/100 WBC (Bld) 0.3 % Normal [facility] Comment on above: Performed By: #### Nilam BAILEY, 1504-0, 3016-3 #### [facility] ([id number]) [address], [address] [place] [address] Eosinophils (Bld) [#/Vol] 0.1 10*3/uL Normal 0.0-0.4 [facility] Comment on above: Performed By: #### Nilam BAILEY, 1504-0, 3016-3 #### [facility] ([id number]) [address], [address] [place] [address] Eosinophils/100 WBC (Bld) 1.0 % Normal [facility] Comment on above: Performed By: #### Nilam BAILEY, 1504-0, 3016-3 #### [facility] ([id number]) [address], [facility] [address] [place] [address] Erythrocyte distribution width (RBC) [Ratio] 14.1 % Normal 11.5-15.0 [facility] Comment on above: Performed By: #### Nilam BAILEY, 1504-0, 3016-3 #### [facility] ([id number]) [address], [address] [place] [address] Hematocrit (Bld) [Volume fraction] 34.5 % Low 35-47 [facility] Comment on above: Performed By: #### Nilam BAILEY, 1504-0, 3016-3 #### [facility] ([id number]) [address], [facility] [address] [place] [address] Hemoglobin (Bld) [Mass/Vol] 11.5 g/dL Low 11.7-15.5 [facility] Comment on above: Performed By: #### Nilam BAILEY, 1504-0, 3016-3 #### [facility] ([id number]) [address], [facility] [address] [place] [address] Lymphocytes (Bld) [#/Vol] 2.1 10*3/uL Normal 1.0-3.5 [facility] Comment on above: Performed By: #### Nilam BAILEY, 1504-0, 3016-3 #### [facility] ([id number]) [address], [facility] [address] [place] [address] Lymphocytes/100 WBC (Bld) 21.4 % Normal [facility] Comment on above: Performed By: #### Nilam BAILEY, 1504-0, 3016-3 #### [facility] ([id number]) [address], [address] [place] [address] MCH (RBC) [Entitic mass] 28.9 pg Normal 27-34 [facility] Comment on above: Performed By: #### Nilam BAILEY, 1504-0, 3016-3 #### [facility] ([id number]) [address], [address] [place] [address] MCHC (RBC) [Mass/Vol] 33.3 g/dL Normal 32-36 [facility] Comment on above: Performed By: #### Nilam BAILEY, 1504-0, 3016-3 #### [facility] ([id number]) [address], [address] [place] [address] MCV (RBC) [Entitic vol] 87 fL Normal 80-100 [facility] Comment on above: Performed By: #### Nilam BAILEY, 1504-0, 3016-3 #### [facility] ([id number]) [address], [address] [place] [address] Monocytes (Bld) [#/Vol] 0.6 10*3/uL Normal 0-0.9 [facility] Comment on above: Performed By: #### Nilam BAILEY, 1504-0, 3016-3 #### [facility] ([id number]) [address], [address] [place] [address] Monocytes/100 WBC (Bld) 6.1 % Normal [facility] Comment on above: Performed By: #### Nilam BAILEY, 1504-0, 6-3 #### [facility] ([id number]) [address], [address] [place] [address] Neutrophils/100 WBC (Bld) 71.2 % Normal [facility] Comment on above: Performed By: #### Nilam BAILEY, 1504-0, 3 #### [facility] ([id number]) [address], [address] [place] [address] Platelet mean volume (Bld) [Entitic vol] 7.8 fL Normal 7-12 [facility] Comment on above: Performed By: #### Nilam BAILEY, 1504-0, 6-3 #### [facility] ([id number]) [address], [address] [place] [address] Platelets (Bld) [#/Vol] 374 10*3/uL Normal 150-450 [facility] Comment on above: Performed By: #### Nilam BAILEY, 1504-0, 3016-3 #### [facility] ([id number]) [address], [address] [place] [address] RBC COUNT 3.97 X10E12/L Normal 3.80-5.20 [facility] Comment on above: Performed By: #### Nilam BAILEY, 1504-0, 3016-3 #### [facility] ([id number]) [address], [facility] [address] [place] [address] WBC (Bld) [#/Vol] 9.9 10*3/uL Normal 4.0-11.0 [facility] Comment on above: Performed By: #### Nilam BAILEY, 1504-0, 3016-3 #### [facility] ([id number]) [address], [facility] [address] [place] [address] Glucose 1 Hr post 50 g gluco se PO [Mass/Vol]on 07-17-2023 GLU 1H POST 50G LOAD 101 mg/dL Normal 65-139 [facility] Comment on above: Performed By: #### Nilam BAILEY, 1504-0, 3016-3 #### [facility] ([id number]) [address], [facility] [address] [place] [address] TSH Qnon 07-17-2023 TSH 2.24 uIU/mL Normal 0.49-4.67 [facility] Comment on above: Performed By: #### Nilam BAILEY, 1504-0, 3016-3 #### [facility] ([id number]) [address], [address] [address] US thyroidon 02-14-2021 thyroid [facility] [address] Ultrasound Report Signed Patient: Lilli Menendez MR#: [id number] 4 : 1995 Acct:[id number] Age/Sex: 26 / F ADM Date: 02/14/21 Loc: UL Room: Type: [facility] Attending Dr: Bryan Langford MD Ordering [...] Neisha Curry M.D.02/14/2021 2:49 PM Dictation Location: [place] [address] Tech: Ashley Dempsey Transcribed By: YANET 02/14/21 144 Dictated By: Neisha Curry MD 02/14/21 1447 Signed By: 02/14/21 1449 [facility] Vital Signs Date Time Vital Sign Value Performing Clinician Faci lity 08-06-2023 09:41-0500 Body mass index (BMI) [Ratio] 28.93 kg/m2 Ericka VELARDE Work Phone: [facility] 08-06-2023 09:41-0500 Body weight 64.41 kg Ericka VELARDE Work Phone: [facility] 08-06-2023 09:41-0500 Diastolic blood pressure 74 mm[Hg] Ericka VELARDE Work Phone: [facility] 08-06-2023 09:41-0500 Systolic blood pressure 106 mm[Hg] Ericka VELARDE Work Phone: [facility] Healthcare Encounters Encounter Date Encounter Type Care Provider Facility Start: 09-03-2023 End: 09-03-2023 ambulatory ERICKA TINEO Not Available Start: 08-20-2023 End: 08-20-2023 ambulatory GARRETT GODOY Not Available Start: 08-06-2023 End: 08-06-2023 ambulatory ERICKA TINEO Not Available Start: 08-06-2023 End: 08-06-2023 flow sheet Ericka VELARDE Work Phone: [facility] BCP OB Comment on above: Third trimester preg alea; History of labor Start: 08-04-2023 [facility] Result Encounter Garrett Godoy DO Work Phone: [facility] Unsolicited Start: 08-04-2023 [facility] Result Encounter Garrett Godoy DO Work Phone: [facility] Unsolicited Start: 08-03-2023 End: 08-04-2023 ambulatory BRYAN LANGFORD [facility] Start: 07-17-2023 End: 07-18-2023 ambulatory GARRETT GODOY [facility] Start: 07-09-2023 End: 07-09-2023 ambulatory GARRETT GODOY Not Available Start: 06-16-2023 End: 06-17-2023 ambulatory [facility] Procedures Date Procedure Procedure Detail Performing Clinician Start: 08-06-2023 Urnls dip stick/tabl et rgnt non-auto w/o micrscp Ericka VELARDE Work Phone: Start: 08-04-2023 [facility] UA (CLEAN/CATCH) FOUNDRY WORKER GENERAL/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 Garrett Godoy DO Work Phone: Plan of Treatment Date Care Activity Detail Author Start: 08-20-2023 End: 08-20-2023 Patient encounter procedure 08/20/2023 10:50 AM EST Routine [facility] [address] [place] [address] JayneGarrett, DO [address] [address] [facility] Start: 08-06-2023 End: 08-06-2024 US biophysical profile w non stress test US biophysical profile w non stress test Imaging Routine History of labor Expected: 08/06/2023 (Approximate), Expires: 08/06/2024 [facility] Healthcare Comment on above: Expected: 08/06/2023 (Approximate), Expires: 08/06/2024 Start: 08-06-2023 End: 08-06-2024 US for US OB SCAN FOR GROWTH Imaging Routine History of labor Expected: 08/06/2023 (Approximate), Expires: 08/06/2024 [facility] Work Phone: Comment on above: Expected: 08/06/2023 (Approximate), Expires: 08/06/2024 Start: 08-06-2023 End: 08-06-2023 Patient encounter procedure 08/06/2023 9:30 AM EST Routine [facility] [address] [place] [id number] Ericka Tineo PA [address] [place] [address] Third trimester [facility] Comment on above: Third trimester preg alea Payers Date Payer Category Payer Unknown [id number] 2020 Unknown BCBS BCBS xxxxxx [id number] 2020-Present [phone] [address] [place] [address] [id number] 1995 Unknown [id number] 1995 Unknown [id number] 1995 Unknown [id number] 1996 Unknown [id number] 1996 Unknown [id number] 1995 Unknown [id number] 1995 Unknown [id number] Social History Date Type Detail Facility Tobacco smoking stat [facility] Tobacco smoking consumption unknown [facility] Start: 02-03-2023 [facility] Start: 1995 Sex Assigned At Not on [...] which includes the following prescription(s): levothyroxine and nvykyvbr-tlc-ve-fa. Medical History: Active Ambulatory Problems Diagnosis Date [...] nursing note reviewed. Exam conducted with a armament mechanic present. Vitals: Estimated body mass index is [...] section and content) DATE CREATED AUTHOR 07/15/2021 [facility] DATE CREATED AUTHOR AUTHOR'S ORGANIZ ATION 08/04/2023 [facility] DATE CREATED AUTHOR AUTHOR'S ORGANIZ ATION 09/04/2023 [facility] dical Specialists [employer] Care Teams (unrecognized sec tion and content) Machine Heel Seat Fitter Relationship Specialty Start Date End Date Manasa Soni DO [address] [place] [address] PCP - General Family Medicine 07/09/23 Machine Heel Seat Fitter Relationship Specialty Start Date End Date Manasa Soni DO [address] [place] [address] PCP - General Family Medicine 07/09/23 Reason [...] BE BASED ON THE PRIMARY CLINICAL RECORDS. [employer] provides no warranty or guarantee of the accuracy or completeness of information in this document.
--- NOTE | 2023-09-22 | US_ITS ---
[address] [address] Patient Name: LILLI COSBY MRN: [id number] date: 1995 Sex: F Assigned Patient Location: US Current Patient Location: US Accession/Order Number: [id number] Exam Date: 09/22/2023 14:53 Report Date: 09/22/2023 15:52 At the request of: GARRETT MAHMOOD Procedure: US OB BPP w non-stress EXAMINATION: US OB BPP w non-stress HISTORY: HISTORY OF LABOR Z87.51 COMPARISON: Ultrasound OB biophysical 09/10/2023 TECHNIQUE: Ultrasound biophysical profile was performed in the radiology department. BREATHING MOVEMENTS: 2 GROSS BODY MOVEMENTS: 2 TONE: 2 QUALITATIVE AMNIOTIC FLUID VOLUME: 2 PRESENTATION: CEPHALIC HEART RATE: 155.2 bpm bpm. AMNIOTIC FLUID VOLUME: 12.1 cm GESTATIONAL AGE: 35 weeks 0 days CONCLUSION: Total biophysical profile score 8. Electronically authenticated by: HARRY WAN Date: 09/22/2023 15:52
--- NOTE | 2023-09-22 | US_ITS ---
[address] [address] Patient Name: LLILI COSBY MRN: [id number] date: 1995 Sex: F Assigned Patient Location: US Current Patient Location: US Accession/Order Number: [id number] Exam Date: 09/22/2023 14:53 Report Date: 09/22/2023 15:53 At the request of: GARRETT MAHMOOD Procedure: US OB growth EXAMINATION: US OB growth HISTORY: HISTORY OF LABOR Z87.51 COMPARISON: Ultrasound OB growth 08/21/2023 FINDINGS: Heart Rate: 155.2 bpm Number: 1.0 Position: CEPHALIC Amniotic Fluid Volume: 12.1 cm Maximum Vertical Pocket: 4.0 cm BIOMETRY: BPD: 8.4 cm cm; 33 weeks 5 days; 17% HC: 31.3 cmcm; 35 weeks 1 days ; 19% AC: 30.8 cm cm; 34 weeks 5 days; 49% FL: 6.8 cm cm; 34 weeks 6 days; 38% EFW: 2495.0 grams; 38% FL/AC: 22.0 FL/BPD: 81.0 HC/AC: 1.0 GESTATIONAL AGE: Age by EDC: 35 weeks 0 days MELLY by EDC: 10/27/2023 Age by US: 34 weeks 4 days MELLY by US: 10/30/2023 US/US OB growth IMPRESSION: 1. Single live intrauterine with growth detailed above. Electronically authenticated by: HARRY WAN Date: 09/22/2023 15:53
--- OUTSIDE RECORDS SUMMARY | 2023-09-22 08:06 | XMS_ITS | CCD ---
Author Organization [facility] Care Team Providers Care Mixing Technician Name Role Phone ANGE LOUIS Referring Unavailable [...] before bedtime. 0 08/06/2023 Discontinued (Therapy completed) Grixzdns-Ykk-Sk-FA ( 1 + IRON PO) (3 sources) Uzqroxqp-Nhb-Uh-FA ( 1 + IRON PO) Take by [...] UA Negative Negative - 4(70) +++ mg/dL [facility] Blood, UA Positive Negative - 50 Efren/mcL [facility] Clarity, [facility] Clear [facility] Color, [facility] Yellow [facility] Glucose, UA Negative Negative - 1999(110) ++++ mg/dL [facility] Interpretation and review of laboratory results Abnormal [facility] Ketones, UA Negative Negative - 160(16) ++++ mg/dL [facility] Leukocytes, UA Positive Negative - 500+++ Luci/mcL [facility] Nitrite, UA Negative Negative - Positive [facility] pH, UA 6.5 5 - 9 [facility] Protein, UA Positive Negative - 1999(20) ++++ mg/dL [facility] Spec Grav, UA 1.030 1 - 1.03 [facility] Urobilinogen, UA 1.0 0.2 - 12 mg/dL [facility] (CLEAN/CATCH) PROGRAM INSTRUCTOR/JING RO IF IND.on 08-04-2023 BILIRUBIN URINE Negative NEGATIVE [facility] BLOOD URINE TRACE-I NEGATIVE [facility] Clarity (U) CLEAR CLEAR [facility] Color (U) YELLOW YELLOW [facility] GLUCOSE URINE UA Negative NEGATIVE mg/dL [facility] Interpretation and review of laboratory results Abnormal [facility] Healthcare Ketones Ql (U) 15 mg/dL Abnormal NEGATIVE [facility] Healt [facility]care Leukocyte esterase Test strip Ql (U) SMALL Abnormal NEGATIVE [facility] NITRITE URINE Negative NEGATIVE [facility] Health care pH (U) 6.0 [pH] 5.0 - 9.0 [facility] PROTEIN URINE TRACE NEG/TRACE mg/dL [facility] SPECIFIC GRAVITY URINE 1.025 1.005 - 1.025 [facility] URINE MICROSCOPIC INDICATED YES [facility] UROBILINOGEN URINE 1.0 EU/dL 0.2 - 1.0 EU/dL [facility] FREE T3on 08-03-2023 Free T3 [Mass/Vol] 3.27 pg/mL Normal 2.50-3.90 [facility] Comment on above: Performed By: #### T KIRTI, 0 #### [facility] ([id number]) [address] [facility] [facility] [address] [place] [address] THYROID PROFILEon 08-03-2023 Free T4 [Mass/Vol] 0.66 ng/dL Normal 0.61-1.60 [facility] Comment on above: Performed By: #### T HYR, 3050-0 #### [facility] ([id number]) [address] [facility], [facility] [address] [place] [address] TSH 1.74 uIU/mL Normal 0.49-4.67 [facility] Comment on above: Performed By: #### T KILOR, 3050-0 #### [facility] ([id number]) [address], [address] [place] [address] CBC AND AUTO DIFFon 07-17-19 ABSOLUTE BASOPHIL 0.0 X10E9/L Normal 0.0-0.2 [facility] Comment on above: Performed By: #### Nilam BAILEY, 1504-0, 3016-3 #### [facility] ([id number]) [address], [address] [place] [address] ABSOLUTE NEUTROPHIL 7.1 X10E9/L High 1.5-6.6 [facility] Comment on above: Performed By: #### Nilam BAILEY, 1504-0, 3016-3 #### [facility] ([id number]) [address], [address] [place] [address] Basophils/100 WBC (Bld) 0.3 % Normal [facility] Comment on above: Performed By: #### Nilam BAILEY, 1504-0, 301-3 #### [facility] ([id number]) [address], [address] [place] [address] Eosinophils (Bld) [#/Vol] 0.1 10*3/uL Normal 0.0-0.4 [facility] Comment on above: Performed By: #### Nilam BAILEY, 1504-0, 3016-3 #### [facility] ([id number]) [address], [address] [place] [address] Eosinophils/100 WBC (Bld) 1.0 % Normal [facility] Comment on above: Performed By: #### Nilam BAILEY, 1504-0, 3016-3 #### [facility] ([id number]) [address], [address] [place] [address] Erythrocyte distribution width (RBC) [Ratio] 14.1 % Normal 11.5-15.0 [facility] Comment on above: Performed By: #### Nilam BAILEY, 1504-0, 3016-3 #### [facility] ([id number]) [address], [address] [place] [address] Hematocrit (Bld) [Volume fraction] 34.5 % Low 35-47 [facility] Comment on above: Performed By: #### Nilam BAILEY, 1504-0, 3016-3 #### [facility] ([id number]) [address], [facility] [address] [place] [address] Hemoglobin (Bld) [Mass/Vol] 11.5 g/dL Low 11.7-15.5 [facility] Comment on above: Performed By: #### Nilam BAILEY, 1504-0, 3016-3 #### [facility] ([id number]) [address], [facility] [address] [place] [address] Lymphocytes (Bld) [#/Vol] 2.1 10*3/uL Normal 1.0-3.5 [facility] Comment on above: Performed By: #### Nilam BAILEY, 1504-0, 3016-3 #### [facility] ([id number]) [address], [facility] [address] [place] [address] Lymphocytes/100 WBC (Bld) 21.4 % Normal [facility] Comment on above: Performed By: #### Nilam BAILEY, 1504-0, 3016-3 #### [facility] ([id number]) [address], [address] [place] [address] MCH (RBC) [Entitic mass] 28.9 pg Normal 27-34 [facility] Comment on above: Performed By: #### Nilam BAILEY, 1504-0, 3016-3 #### [facility] ([id number]) [address], [facility] [address] [place] [address] MCHC (RBC) [Mass/Vol] 33.3 g/dL Normal 32-36 [facility] Comment on above: Performed By: #### Nilam BAILEY, 1504-0, 3016-3 #### [facility] ([id number]) [address], [address] [place] [address] MCV (RBC) [Entitic vol] 87 fL Normal 80-100 [facility] Comment on above: Performed By: #### Nilam BAILEY, 1504-0, 3016-3 #### [facility] ([id number]) [address], [address] [place] [address] Monocytes (Bld) [#/Vol] 0.6 10*3/uL Normal 0-0.9 [facility] Comment on above: Performed By: #### Nilam BAILEY, 1504-0, 3016-3 #### [facility] ([id number]) [address], [address] [place] [address] Monocytes/100 WBC (Bld) 6.1 % Normal [facility] Comment on above: Performed By: #### Nilam BAILEY, 1504-0, 6-3 #### [facility] ([id number]) [address], [address] [place] [address] Neutrophils/100 WBC (Bld) 71.2 % Normal [facility] Comment on above: Performed By: #### Nilam BAILEY, 1504-0, 3016-3 #### [facility] ([id number]) [address], [address] [place] [address] Platelet mean volume (Bld) [Entitic vol] 7.8 fL Normal 7-12 [facility] Comment on above: Performed By: #### Nilam BAILEY, 1504-0, 3016-3 #### [facility] ([id number]) [address], [address] [place] [address] Platelets (Bld) [#/Vol] 374 10*3/uL Normal 150-450 [facility] Comment on above: Performed By: #### Nilam BAILEY, 1504-0, 3016-3 #### [facility] ([id number]) [address], [address] [place] [address] RBC COUNT 3.97 X10E12/L Normal 3.80-5.20 [facility] Comment on above: Performed By: #### Nilam BAILEY, 1504-0, 3016-3 #### [facility] ([id number]) [address] [address] [place] [address] WBC (Bld) [#/Vol] 9.9 10*3/uL Normal 4.0-11.0 [facility] Comment on above: Performed By: #### Nilam BAILEY, 1504-0, 3016-3 #### [facility] ([id number]) [address] [address] [place] [address] Glucose 1 Hr post 50 g gluco se PO [Mass/Vol]on 07-17-2023 GLU 1H POST 50G LOAD 101 mg/dL Normal 65-139 [facility] Comment on above: Performed By: #### Nilam BAILEY, 1504-0, 3016-3 #### [facility] ([id number]) [address] [address] [place] [address] TSH Qnon 07-17-2023 TSH 2.24 uIU/mL Normal 0.49-4.67 [facility] Comment on above: Performed By: #### Nilam BAILEY, 1504-0, 3016-3 #### [facility] ([id number]) [address] [address] [place] [address] US thyroidon 02-14-2021 thyroid [facility] [place] [address] Ultrasound Report Signed Patient: Lilli Menendez MR#: [id number] 4 : 1995 Acct:[id number] Age/Sex: 26 / F ADM Date: 02/14/21 Loc: Room: Type: [facility] Attending Dr: Bryan Langford MD [...] Neisha Curry M.D.02/14/2021 2:49 PM Dictation Location: [place] [address] Tech: Ashley Dempsey Transcribed By: YANET 02/14/21 1449 Dictated By: Neisha Curry MD 02/14/21 144 Signed By: 02/14/21 144 [facility] Vital Signs Date Time Vital Sign Value Performing Clinician Faci lity 08-06-2023 09:41-0500 Body mass index (BMI) [Ratio] 28.93 kg/m2 Ericka VELARDE Work Phone: [facility] 08-06-2023 09:41-0500 Body weight 64.41 kg Ericka VELARDE Work Phone: [facility] 08-06-2023 09:41-0500 Diastolic blood pressure 74 mm[Hg] Ericka VELARDE Work Phone: [facility] 08-06-2023 09:41-0500 Systolic blood pressure 106 mm[Hg] Ericka VELARDE Work Phone: [facility] Healthcare Encounters Encounter Date Encounter Type Care Provider Facility Start: 09-17-2023 End: 09-17-2023 ambulatory ERICKA TINEO Not Available Start: 09-03-2023 End: 09-03-2023 ambulatory ERICKA TINEO Not Available Start: 08-20-2023 End: 08-20-2023 ambulatory GARRETT OGDOY Not Available Start: 08-06-2023 End: 08-06-2023 ambulatory [...] Start: 08-03-2023 End: 08-04-2023 ambulatory BRYAN Interiano [facility] Start: 07-17-2023 End: 07-18-2023 ambulatory GARRETT GODOY [facility] Start: 07-09-2023 End: 07-09-2023 ambulatory GARRETT GODOY Not Available Start: 06-16-2023 End: 06-17-2023 ambulatory ABEER [facility] Procedures Date Procedure Procedure Detail Performing Clinician Start: 08-06-2023 Urnls dip stick/tabl et rgnt non-auto w/o micrscp Ericka VELARDE Work Phone: Start: 08-04-2023 [facility] UA (CLEAN/CATCH) PROGRAM INSTRUCTOR/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 Garrett Ewingzio DO Work Phone: Plan of Treatment Date Care Activity Detail Author Start: 08-20-2023 End: 08-20-2023 Patient encounter procedure 08/20/2023 10:50 AM EST Routine [facility] [address] [place] [address] Garrett Godoy, DO [address] [place] [address] [facility] Start: 08-06-2023 End: 08-06-2024 [...] AM EST Routine [facility] [address] [facility] [place] [id number] Ericka Tineo PA [address] [facility] [address] [place], [place] [id number] Third trimester [facility] Comment on above: Third trimester preg alea Payers Date Payer Category Payer Unknown [id number] 2020 Unknown BCBS BCBS xxxxxx [id number] 2020-Present [phone] [address] [place] [address] [id number] 1996 Unknown [id number] 1996 Unknown [id number] [id number] 1996 Unknown [id number] [id number] 1996 Unknown [id number] [id number] 1996 Unknown [id number] 2.16.840.1.145217.3.579.2.9 1996 Unknown [id number] [id number] 1996 Unknown [id number] [id number] 1996 Unknown [id number] [id number] Social History Date Type Detail Facility Tobacco smoking stat [facility] Tobacco smoking consumption unknown [facility] [...] which includes the following prescription(s): levothyroxine and fteumuyy-orf-bp-fa. Medical History: Active Ambulatory Problems Diagnosis Date [...] nursing note reviewed. Exam conducted with a critical power install technician present. Vitals: Estimated body mass index [...] section and content) DATE CREATED AUTHOR 07/15/2021 [facility] DATE CREATED AUTHOR AUTHOR'S ORGANIZ ATION 08/04/2023 [facility] DATE CREATED AUTHOR AUTHOR'S ORGANIZ ATION 09/18/2023 [facility] [employer] Care Teams (unrecognized sec tion and content) Mixing Technician Relationship Specialty Start Date End Date Manasa Soni DO [address] [place] [address] PCP - General Family Medicine 07/09/23 Mixing Technician Relationship Specialty Start Date End Date Manasa Soni DO [address] [place] [address] PCP - General Family Medicine 07/09/23 Reason [...] BE BASED ON THE PRIMARY CLINICAL RECORDS. [employer] provides no warranty or guarantee of the accuracy or completeness of information in this document.
== END 2023-09-22 08:04 | disposition home or self-care (01) ==
LOC: US 08:03
PROVIDERS: Visit Provider Obstetrics & Gynecology
DX: O36.63X0 Maternal care for excessive fetal growth, third trimester, not applicable or unspecified (principal); Z87.51 Personal history of pre-term labor; Z3A.35 35 weeks gestation of pregnancy
CPT/HCPCS: 76816; 76818

== ENCOUNTER 2023-09-25 07:13 | Outpatient (OUT) | payer BC, SELFPAY ==
--- OUTSIDE RECORDS SUMMARY | 2023-09-25 07:15 | XMS_ITS | CCD ---
Author Organization [facility] Care Team Providers Care Cabinet Worker Name Role Phone ANGE LOUIS Referring Unavailable SANDRA MANASA K Primary Care Unavailable GARRETT GODOY Referring Unavailable RUMSCHLAG, MANASA K Primary Care Unavailable BRYAN LANGFORD Referring Unavailable RUMSCHLAG, MANASA K Primary Care Unavailable Rumschlag Manasa PATIÑO Primary Care Provider GARRETT GODOY Attending Unavailable ERICKA TINEO Attending Unavailable GARRETT GODOY Attending Unavailable ERICKA TINEO Attending Unavailable ERICKA TINEO Attending Unavailable GARRETT [...] before bedtime. 0 08/06/2023 Discontinued (Therapy completed) Fjbihuyr-Xsf-Ku-FA ( 1 + IRON PO) (3 sources) Osclucio-Lhb-Vt-FA ( 1 + IRON PO) Take by [...] UA Negative Negative - 4(70) +++ mg/dL [facility] Blood, UA Positive Negative - 50 Efren/mcL [facility] Clarity, UA Clear [facility], [facility]A Yellow [facility] Glucose, UA Negative Negative - 1999(110) ++++ mg/dL [facility] Interpretation and review of laboratory results Abnormal [facility] Ketones, UA Negative Negative - 160(16) ++++ mg/dL [facility] Leukocytes, UA Positive Negative - 500+++ Luci/mcL [facility] Nitrite, UA Negative Negative - Positive [facility] pH, UA 6.5 5 - 9 [facility] Protein, UA Positive Negative - 1999(20) ++++ mg/dL [facility] Grav, UA 1.030 1 - 1.03 [facility] Urobilinogen, UA 1.0 0.2 - 12 mg/dL [facility] UA (CLEAN/CATCH) ELECTROSTATIC PAINTER/JING RO IF IND.on 08-04-2023 BILIRUBIN URINE Negative NEGATIVE [facility] BLOOD URINE TRACE-I NEGATIVE [facility] Clarity (U) CLEAR CLEAR [facility] Color (U) YELLOW YELLOW [facility] GLUCOSE URINE UA Negative NEGATIVE mg/dL [facility] Interpretation and review of laboratory results Abnormal [facility] Ketones Ql (U) 15 mg/dL Abnormal NEGATIVE [facility] Leukocyte esterase Test strip Ql (U) SMALL Abnormal NEGATIVE [facility] NITRITE URINE Negative NEGATIVE [facility] Health care pH (U) 6.0 [pH] 5.0 - 9.0 [facility] PROTEIN URINE TRACE NEG/TRACE mg/[facility] SPECIFIC GRAVITY URINE 1.025 1.005 - 1.025 [facility] URINE MICROSCOPIC INDICATED YES [facility] UROBILINOGEN URINE 1.0 EU/dL 0.2 - 1.0 EU/dL [facility] FREE T3on 08-03-2023 Free T3 [Mass/Vol] 3.27 pg/mL Normal 2.50-3.90 [facility] Comment on above: Performed By: #### T KIRTI, 0 #### [facility] ([id number]) [address] [place] [address], [address] [place] [address] THYROID PROFILEon 08-03-2023 Free T4 [Mass/Vol] 0.66 ng/dL Normal 0.61-1.60 [facility] Comment on above: Performed By: #### T KIRTI, 0 #### [facility] ([id number]) [address] [place] [address], [address] [place] [address] TSH 1.74 uIU/mL Normal 0.49-4.67 [facility] Comment on above: Performed By: #### T KIRTI, 0 #### [facility] ([id number]) [address], [address] [place] [address] CBC AND AUTO DIFFon 07-17-19 ABSOLUTE BASOPHIL 0.0 X10E9/L Normal 0.0-0.2 [facility] Comment on above: Performed By: #### Nilam BAILEY, 1504-0, 3016-3 #### [facility] ([id number]) [address], [address] [place] [address] ABSOLUTE NEUTROPHIL 7.1 X10E9/L High 1.5-6.6 [facility] Comment on above: Performed By: #### Nilam BAILEY, 1504-0, 3016-3 #### [facility] ([id number]) [address], [address] [place] [address] Basophils/100 WBC (Bld) 0.3 % Normal [facility] Comment on above: Performed By: #### Nilam BAILEY, 1504-0, 3016-3 #### [facility] ([id number]) [address], [address] [place] [address] Eosinophils (Bld) [#/Vol] 0.1 10*3/uL Normal 0.0-0.4 [facility] Comment on above: Performed By: #### Nilam BAILEY, 1504-0, 3016-3 #### [facility] ([id number]) [address] [address] [place] [address] Eosinophils/100 WBC (Bld) 1.0 % Normal [facility] Comment on above: Performed By: #### Nilam BAILEY, 1504-0, 3016-3 #### [facility] ([id number]) [address] [place] [address] Erythrocyte distribution width (RBC) [Ratio] 14.1 % Normal 11.5-15.0 [facility] Comment on above: Performed By: #### Nilam BAILEY, 1504-0, 3016-3 #### [facility] ([id number]) [address], [address] [place] [address] Hematocrit (Bld) [Volume fraction] 34.5 % Low 35-47 [facility] Comment on above: Performed By: #### Nilam BAILEY, 1504-0, 3016-3 #### [facility] ([id number]) [address], [address] [place] [address] Hemoglobin (Bld) [Mass/Vol] 11.5 g/dL Low 11.7-15.5 [facility] Comment on above: Performed By: #### Nilam BAILEY, 1504-0, 301-3 #### [facility] ([id number]) [address], [facility] [address] [place] [address] Lymphocytes (Bld) [#/Vol] 2.1 10*3/uL Normal 1.0-3.5 [facility] Comment on above: Performed By: #### Nilam BAILEY, 1504-0, 3016-3 #### [facility] ([id number]) [address], [address] [place] [address] Lymphocytes/100 WBC (Bld) 21.4 % Normal [facility] Comment on above: Performed By: #### Nilam BAILEY, 1504-0, 3016-3 #### [facility] ([id number]) [address], [address] [place] [address] MCH (RBC) [Entitic mass] 28.9 pg Normal 27-34 [facility] Comment on above: Performed By: #### Nilam BCA, 1504-0, 3016-3 #### [facility] ([id number]) [address], [address] [place] [address] MCHC (RBC) [Mass/Vol] 33.3 g/dL Normal 32-36 [facility] Comment on above: Performed By: #### Nilam BAILEY, 1504-0, 3016-3 #### [facility] ([id number]) [address], [address] [place] [address] MCV (RBC) [Entitic vol] 87 fL Normal 80-100 [facility] Comment on above: Performed By: #### Nilam BAILEY, 1504-0, 3016-3 #### [facility] ([id number]) [address], [address] [place] [address] Monocytes (Bld) [#/Vol] 0.6 10*3/uL Normal 0-0.9 [facility] Comment on above: Performed By: #### Nilam BAILEY, 1504-0, 3016-3 #### [facility] ([id number]) [address], [address] [place] [address] Monocytes/100 WBC (Bld) 6.1 % Normal [facility] Comment on above: Performed By: #### Nilam BAILEY, 1504-0, 6-3 #### [facility] ([id number]) [address], [address] [place] [address] Neutrophils/100 WBC (Bld) 71.2 % Normal [facility] Comment on above: Performed By: #### Nilam BAILEY, 1504-0, 301-3 #### [facility] ([id number]) [address], [address] [place] [address] Platelet mean volume (Bld) [Entitic vol] 7.8 fL Normal 7-12 [facility] Comment on above: Performed By: #### Nilam BAILEY, 1504-0, 3016-3 #### [facility] ([id number]) [address], [address] [place] [address] Platelets (Bld) [#/Vol] 374 10*3/uL Normal 150-450 [facility] Comment on above: Performed By: #### Nilam BAILEY, 1504-0, 3016-3 #### [facility] ([id number]) [address], [address] [place] [address] RBC COUNT 3.97 X10E12/L Normal 3.80-5.20 [facility] Comment on above: Performed By: #### Nilam BAILEY, 1504-0, 3016-3 #### [facility] ([id number]) [address] [place] [address] WBC (Bld) [#/Vol] 9.9 10*3/uL Normal 4.0-11.0 [facility] Comment on above: Performed By: #### Nilam BAILEY, 1504-0, 3016-3 #### [facility] ([id number]) [address], [facility] [address] [place] [address] Glucose 1 Hr post 50 g gluco se PO [Mass/Vol]on 07-17-2023 GLU 1H POST 50G LOAD 101 mg/dL Normal 65-139 [facility] Comment on above: Performed By: #### Nilam BAILEY, 1504-0, 3016-3 #### [facility] ([id number]) [address] [address] [place] [address] TSH Qnon 07-17-2023 TSH 2.24 uIU/mL Normal 0.49-4.67 [facility] Comment on above: Performed By: #### Nilam BAILEY, 1504-0, 3016-3 #### [facility] ([id number]) [address], [address] [place] [address] US thyroidon 02-14-2021 thyroid [facility] [place] [address] Ultrasound Report Signed Patient: Lilli Menendez MR#: [id number] 4 : 1995 Acct:[id number] Age/Sex: 26 / F ADM Date: 02/14/21 Loc: UL Room: Type: [facility] CLI Attending Dr: Bryan Langford MD Ordering [...] Neisha Curry M.D.02/14/2021 2:49 PM Dictation Location: [place] [address] Tech: Ashley Dempsey Transcribed By: YANET 02/14/21 144 Dictated By: Neisha Curry MD 02/14/21 144 Signed By: 02/14/21 144 [facility] Vital Signs Date Time Vital Sign Value Performing Clinician Faci lity 08-06-2023 09:41-0500 Body mass index (BMI) [Ratio] 28.93 kg/m2 Ericka VELARDE Work Phone: [facility] 08-06-2023 09:41-0500 Body weight 64.41 kg Ericka VELARDE Work Phone: [facility] 08-06-2023 09:41-0500 Diastolic blood pressure 74 mm[Hg] Ericka VELARDE Work Phone: [facility] 08-06-2023 09:41-0500 Systolic blood pressure 106 mm[Hg] Ericka VELARDE Work Phone: [facility] Healthcare Encounters Encounter Date Encounter Type Care Provider Facility Start: 09-22-2023 End: 09-22-2023 ambulatory GARRETT ELA Not Available Start: 09-17-2023 End: 09-17-2023 ambulatory ERICKA TINEO Not Available Start: 09-03-2023 End: 09-03-2023 ambulatory ERICKA TINEO Not Available Start: 08-20-2023 End: 08-20-2023 ambulatory GARRETT ELA Not Available Start: 08-06-2023 End: 08-06-2023 ambulatory [...] Department Unsolicited Start: 08-03-2023 End: 08-04-2023 ambulatory KAILA Interiano [facility] Start: 07-17-2023 End: 07-18-2023 [facility]ulatory [facility] Start: 07-09-2023 End: 07-09-2023 ambulatory GARRETT GODOY Not Available Start: 06-16-2023 End: 06-17-2023 ambulatory ABEER [facility] Procedures Date Procedure Procedure Detail Performing Clinician Start: 08-06-2023 Urnls dip stick/tabl et rgnt non-auto w/o micrscp Ericka VELARDE Work Phone: Start: 08-04-2023 [facility] UA (CLEAN/CATCH) ELECTROSTATIC PAINTER/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 Garertt Godoy DO Work Phone: Plan of Treatment Date Care Activity Detail Author Start: 08-20-2023 End: 08-20-2023 Patient encounter procedure 08/20/2023 10:50 AM EST Routine [facility] [address] [facility] [place] [address] Garrett Godoy, DO [address] [place] [address] [facility] Start: 08-06-2023 End: 08-06-2024 [...] AM EST Routine [facility] [address] [facility] [place] [address] Ericka Tineo PA [address] [facility] [place] [address] Third trimester [facility] Comment on above: Third trimester preg alea Payers Date Payer Category Payer Unknown [id number] 2020 Unknown BCBS BCBS xxxxxx [id number] 2020-Present [phone] [address] [place] [address] [id number] 1996 Unknown [id number] 1996 Unknown [id number] 1996 Unknown [id number] 1996 Unknown [id number] 1996 Unknown [id number] [id number] 1996 Unknown [id number] [id number] 1996 Unknown [id number] [id number] 1996 Unknown [id number] [id number] 1996 Unknown [id number] Social History Date Type Detail Facility Tobacco smoking stat [facility] Tobacco smoking consumption unknown [facility] [...] which includes the following prescription(s): levothyroxine and iwmhyaji-tdh-zx-fa. Medical History: Active Ambulatory Problems Diagnosis Date [...] nursing note reviewed. Exam conducted with a die finisher present. Vitals: Estimated body mass index is [...] content) DATE CREATED AUTHOR 07/15/2021 [facility] DATE CREATED AUTHOR AUTHOR'S ORGANIZ ATION 08/04/2023 [facility] DATE CREATED AUTHOR AUTHOR'S ORGANIZ ATION 09/23/2023 [facility] EP[employer] Care Teams (unrecognized sec tion and content) Cabinet Worker Relationship Specialty Start Date End Date Manasa Soni DO [address] [place] [address] PCP - General Family Medicine 07/09/23 Cabinet Worker Relationship Specialty Start Date End Date Manasa Soni DO [address] [place] [address] PCP - General Family Medicine 07/09/23 Reason [...] BE BASED ON THE PRIMARY CLINICAL RECORDS. [employer] provides no warranty or guarantee of the accuracy or completeness of information in this document.
--- NOTE | 2023-09-25 11:08 | US_ITS ---
[address] [address] Patient Name: LILLI COSBY MRN: [id number] date: 1995 Sex: F Assigned Patient Location: [facility] Current Patient Location: [facility] Accession/Order Number: [id number] Exam Date: 09/25/2023 11:09 Report Date: 09/25/2023 11:44 At the request of: GARRETT MAHMOOD Procedure: US OB BPP w non-stress EXAMINATION: US OB BPP w non-stress HISTORY: History of labor COMPARISON: Ultrasound OB biophysical 09/22/2023 TECHNIQUE: Ultrasound biophysical profile was performed in the radiology department. BREATHING MOVEMENTS: 2.0 GROSS BODY MOVEMENTS: 2.0 TONE: 2.0 QUALITATIVE AMNIOTIC FLUID VOLUME: 2.0 PRESENTATION: CEPHALIC HEART RATE: 150.8 bpm bpm. AMNIOTIC FLUID VOLUME: 12.8 cm GESTATIONAL AGE: 35 weeks 3 days CONCLUSION: Total biophysical profile score 8.0. Electronically authenticated by: HARRY WAN Date: 09/25/2023 11:44
[2023-09-25 11:35] VITALS: BP 111/71; PULSE 85
== END 2023-09-25 12:00 | disposition home or self-care (01) ==
LOC: US 07:13 → FBC 11:07
PROVIDERS: Visit Provider Obstetrics & Gynecology
DX: Z87.51 Personal history of pre-term labor (principal); Z3A.35 35 weeks gestation of pregnancy
CPT/HCPCS: 76818

== ENCOUNTER 2023-09-28 17:24 | Inpatient (IN) | payer BC, SELFPAY ==
[2023-09-28] VITALS (18 sets, daily range): BP systolic 102–132; BP diastolic 59–82; PULSE 90–122; TEMP 36.2–36.8; O2SAT 98–100
--- OUTSIDE RECORDS SUMMARY | 2023-09-28 17:31 | XMS_ITS | CCD ---
Author Organization [facility] Care Team Providers Care Animal Caregiver Name Role Phone ANGE LOUIS Referring Unavailable SANDRA MANASA K Primary Care Unavailable GARRETT GODOY Referring Unavailable RUMSCHBRIDGETG, MANASA K Primary Care Unavailable BRYAN LANGFORD [...] before bedtime. 0 08/06/2023 Discontinued (Therapy completed) Kdvkcuzv-Duo-Ax-FA ( 1 + IRON PO) (3 sources) Mcaxtvfg-Mrz-Fn-FA ( 1 + IRON PO) Take by [...] UA Negative Negative - 4(70) +++ mg/dL [facility] Blood, UA Positive Negative - 50 Efren/mcL [facility] Clarity, UA Clear [facility] Color, UA Yellow [facility] Glucose, UA Negative Negative - 1999(110) ++++ mg/dL [facility] Interpretation and review of laboratory results Abnormal [facility] Ketones, UA Negative Negative - 160(16) ++++ mg/dL [facility] Leukocytes, UA Positive Negative - 500+++ Luci/mcL [facility] Nitrite, UA Negative Negative - Positive [facility] pH, UA 6.5 5 - 9 [facility] Protein, UA Positive Negative - 1999(20) ++++ mg/dL [facility] Grav, UA 1.030 1 - 1.03 [facility] Urobilinogen, UA 1.0 0.2 - 12 mg/dL [facility]A (CLEAN/CATCH) SURFACING TECHNICIAN/JING RO IF IND.on 08-04-2023 BILIRUBIN URINE Negative NEGATIVE [facility] BLOOD URINE TRACE-I NEGATIVE [facility] Clarity (U) CLEAR CLEAR [facility] Color (U) YELLOW YELLOW [facility] GLUCOSE URINE UA Negative NEGATIVE mg/dL [facility] Interpretation and review of laboratory results Abnormal [facility] Healthcare Ketones Ql (U) 15 mg/dL Abnormal [facility]IVE [facility] Leukocyte esterase Test strip Ql (U) SMALL Abnormal NEGATIVE [facility] NITRITE URINE Negative NEGATIVE [facility] Health care pH (U) 6.0 [pH] 5.0 - 9.0 [facility] PROTEIN URINE TRACE NEG/TRACE [facility] SPECIFIC GRAVITY URINE 1.025 1.005 - 1.025 [facility] URINE MICROSCOPIC INDICATED YES [facility] UROBILINOGEN URINE 1.0 EU/dL 0.2 - 1.0 EU/dL [facility] FREE T3on 08-03-2023 Free T3 [Mass/Vol] 3.27 pg/mL Normal 2.50-3.90 [facility] Comment on above: Performed By: #### T KIRTI, 0 #### [facility] ([id number]) [address] [place] [address], [address] [place] [address] THYROID PROFILEon 08-03-2023 Free T4 [Mass/Vol] 0.66 ng/dL Normal 0.61-1.60 [facility] Comment on above: Performed By: #### T KIRTI, 0 #### [facility] ([id number]) [address] [place] [address], [address] [place] [address] TSH 1.74 uIU/mL Normal 0.49-4.67 [facility] Comment on above: Performed By: #### T KIRTI, 0 #### [facility] ([id number]) [address], [address] [place] [address] CBC AND AUTO DIFFon 07-17-19 ABSOLUTE BASOPHIL 0.0 X10E9/L Normal 0.0-0.2 [facility] Comment on above: Performed By: #### Nilam BAILEY, 1504-0, 3016-3 #### [facility] ([id number]) [address], [address] [place] [address] ABSOLUTE NEUTROPHIL 7.1 X10E9/L High 1.5-6.6 [facility] Comment on above: Performed By: #### Nilam BAILEY, 1504-0, 3016-3 #### [facility] ([id number]) [address], [address] [place] [address] Basophils/100 WBC (Bld) 0.3 % Normal [facility] Comment on above: Performed By: #### Nilam BAILEY, 1504-0, 3016-3 #### [facility] ([id number]) [address], [address] [place] [address] Eosinophils (Bld) [#/Vol] 0.1 10*3/uL Normal 0.0-0.4 [facility] Comment on above: Performed By: #### Nilam BAILEY, 1504-0, 3016-3 #### [facility] ([id number]) [address] [address] [place] [address] Eosinophils/100 WBC (Bld) 1.0 % Normal [facility] Comment on above: Performed By: #### Nilam BAILEY, 1504-0, 3016-3 #### [facility] ([id number]) [address] [address] [place] [address] Erythrocyte distribution width (RBC) [Ratio] 14.1 % Normal 11.5-15.0 [facility] Comment on above: Performed By: #### Nilam BAILEY, 1504-0, 3016-3 #### [facility] ([id number]) [address], [address] [place] [address] Hematocrit (Bld) [Volume fraction] 34.5 % Low 35-47 [facility] Comment on above: Performed By: #### Nilam BAILEY, 1504-0, 3016-3 #### [facility] ([id number]) [address], [address] [place] [address] Hemoglobin (Bld) [Mass/Vol] 11.5 g/dL Low 11.7-15.5 [facility] Comment on above: Performed By: #### Nilam BAILEY, 1504-0, 301-3 #### [facility] ([id number]) [address], [facility] [address] [place] [address] Lymphocytes (Bld) [#/Vol] 2.1 10*3/uL Normal 1.0-3.5 [facility] Comment on above: Performed By: #### Nilam BAILEY, 1504-0, 3016-3 #### [facility] ([id number]) [address], [address] [place] [address] Lymphocytes/100 WBC (Bld) 21.4 % Normal [facility] Comment on above: Performed By: #### Nilam BAILEY, 1504-0, 3016-3 #### [facility] ([id number]) [address], [address] [place] [address] MCH (RBC) [Entitic mass] 28.9 pg Normal 27-34 [facility] Comment on above: Performed By: #### Nilam BCA, 1504-0, 3016-3 #### [facility] ([id number]) [address], [address] [place] [address] MCHC (RBC) [Mass/Vol] 33.3 g/dL Normal 32-36 [facility] Comment on above: Performed By: #### Nilam BAILEY, 1504-0, 3016-3 #### [facility] ([id number]) [address], [address] [place] [address] MCV (RBC) [Entitic vol] 87 fL Normal 80-100 [facility] Comment on above: Performed By: #### Nilam BAILEY, 1504-0, 3016-3 #### [facility] ([id number]) [address], [address] [place] [address] Monocytes (Bld) [#/Vol] 0.6 10*3/uL Normal 0-0.9 [facility] Comment on above: Performed By: #### Nilam BAILEY, 1504-0, 3016-3 #### [facility] ([id number]) [address], [address] [place] [address] Monocytes/100 WBC (Bld) 6.1 % Normal [facility] Comment on above: Performed By: #### Nilam BAILEY, 1504-0, 6-3 #### [facility] ([id number]) [address], [address] [place] [address] Neutrophils/100 WBC (Bld) 71.2 % Normal [facility] Comment on above: Performed By: #### Nilam BAILEY, 1504-0, 301-3 #### [facility] ([id number]) [address], [address] [place] [address] Platelet mean volume (Bld) [Entitic vol] 7.8 fL Normal 7-12 [facility] Comment on above: Performed By: #### Nilam BAILEY, 1504-0, 3016-3 #### [facility] ([id number]) [address], [address] [place] [address] Platelets (Bld) [#/Vol] 374 10*3/uL Normal 150-450 [facility] Comment on above: Performed By: #### Nilam BAILEY, 1504-0, 3016-3 #### [facility] ([id number]) [address], [address] [place] [address] RBC COUNT 3.97 X10E12/L Normal 3.80-5.20 [facility] Comment on above: Performed By: #### Nilam BAILEY, 1504-0, 3016-3 #### [facility] ([id number]) [address] [address] [place] [address] WBC (Bld) [#/Vol] 9.9 10*3/uL Normal 4.0-11.0 [facility] Comment on above: Performed By: #### Nilam BAILEY, 1504-0, 3016-3 #### [facility] ([id number]) [address], [facility] [address] [place] [address] Glucose 1 Hr post 50 g gluco se PO [Mass/Vol]on 07-17-2023 GLU 1H POST 50G LOAD 101 mg/dL Normal 65-139 [facility] Comment on above: Performed By: #### Nilam BAILEY, 1504-0, 3016-3 #### [facility] ([id number]) [address] [address] [place] [address] TSH Qnon 07-17-2023 TSH 2.24 uIU/mL Normal 0.49-4.67 [facility] Comment on above: Performed By: #### Nilam BAILEY, 1504-0, 3016-3 #### [facility] ([id number]) [address], [address] [place] [address] US thyroidon 02-14-[address] [facility] [place] [address] Ultrasound Report Signed Patient: Lilli Menendez MR#: [id number] 4 : 1995 Acct:[id number] Age/Sex: 26 / F ADM Date: 02/14/21 Loc: UL Room: Type: [facility] CLI Attending Dr: Bryan Langford MD [...] Neisha Curry M.D.02/14/2021 2:49 PM Dictation Location: [place] [address] Tech: Ashley Dempsey Transcribed By: YANET 02/14/21 144 Dictated By: Neisha Curry MD 02/14/21 144 Signed By: 02/14/21 144 [facility] Vital Signs Date Time Vital Sign Value Performing Clinician Faci lity 08-06-2023 09:41-0500 Body mass index (BMI) [Ratio] 28.93 kg/m2 Ericka VELARDE Work Phone: [facility] 08-06-2023 09:41-0500 Body weight 64.41 kg Ericka VELARDE Work Phone: [facility] 08-06-2023 09:41-0500 Diastolic blood pressure 74 mm[Hg] Ericka VELARDE Work Phone: [facility] 08-06-2023 09:41-0500 Systolic blood pressure 106 mm[Hg] Ericka VELARDE Work Phone: [facility] Healthcare Encounters Encounter Date Encounter Type [...] Start: 08-03-2023 End: 08-04-2023 ambulatory KAILA [facility] Start: 07-17-2023 End: 07-18-2023 ambulatory GARRETT [facility] Start: 07-09-2023 End: 07-09-2023 ambulatory GARRETT GODOY Not Available Start: 06-16-2023 End: 06-17-2023 ambulatory ABEER [facility] Procedures Date Procedure Procedure Detail Performing Clinician Start: 08-06-2023 Urnls dip stick/tabl et rgnt non-auto w/o micrscp Ericka VELARDE Work Phone: Start: 08-04-2023 [facility] UA (CLEAN/CATCH) SURFACING TECHNICIAN/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 Garrett Godoy DO Work Phone: Plan of Treatment Date Care Activity Detail Author Start: 08-20-2023 End: 08-20-2023 Patient encounter procedure 08/20/2023 10:50 AM EST Routine [facility] [address] [place] [address] Garrett Godoy, DO [address] [place] [address] [facility] Start: 08-06-2023 End: 08-06-2024 [...] AM EST Routine [facility] [address] [facility] [facility] [place] [address] Ericka Tineo PA [address] [facility] [place] [address] Third trimester [facility] Comment on above: Third trimester preg alea Payers Date Payer Category Payer Unknown [id number] 2020 Unknown BCBS BCBS xxxxxx [id number] 2020-Present [phone] [address] [place] [address] [id number] 1996 Unknown [id number] 1996 Unknown [id number] 1996 Unknown [id number] 1996 Unknown [id number] 1996 Unknown [id number] 1996 Unknown [id number] 1996 Unknown [id number] 1996 Unknown [id number] 1996 Unknown [id number] Social History Date Type Detail Facility Tobacco smoking stat [facility] Tobacco smoking consumption unknown [facility] [...] which includes the following prescription(s): levothyroxine and alvlpuxs-wep-wk-fa. Medical History: Active Ambulatory Problems Diagnosis Date [...] nursing note reviewed. Exam conducted with a decal decorator present. Vitals: Estimated body mass index is [...] section and content) DATE CREATED AUTHOR 07/15/2021 [facility] DATE CREATED AUTHOR AUTHOR'S ORGANIZ ATION 08/04/2023 [facility] DATE CREATED AUTHOR AUTHOR'S ORGANIZ ATION 09/23/2023 [facility] EP[employer] Care Teams (unrecognized sec tion and content) Animal Caregiver Relationship Specialty Start Date End Date Manasa Soni DO [address] [place] [address] PCP - General Family Medicine 07/09/23 Animal Caregiver Relationship Specialty Start Date End Date Manasa Soni DO [address] [place] [address] PCP - General Family Medicine 07/09/23 Reason [...] BE BASED ON THE PRIMARY CLINICAL RECORDS. [employer] provides no warranty or guarantee of the accuracy or completeness of information in this document.
[2023-09-28 18:15] LABS: Bilirubin Urine NEGATIVE (NEGATIVE); Blood Urine NEGATIVE (NEGATIVE); Clarity Urine CLEAR (CLEAR); Color Urine LT. YELLOW (YELLOW); Glucose Urine UA NEGATIVE (NEGATIVE); Ketones Urine NEGATIVE (NEGATIVE); Leukocyte Esterase Urine SMALL (NEGATIVE); Nitrite Urine NEGATIVE (NEGATIVE); Protein Urine NEGATIVE (NEG/TRACE); Urobilinogen Urine 0.2 EU/dL (0.2-1.0)
[2023-09-28 18:17] LABS: Urine Microscopic Indicated YES
[2023-09-28 18:21] LABS: Bacteria Urine NONE SEEN #/HPF (NONE SEEN); Cast Seen? NONE SEEN #/LPF (NONE SEEN); Crystals Seen? None Seen #/HPF (None Seen); Mucus Urine NONE SEEN (NONE SEEN); RBC Urine NONE SEEN #/HPF (0-2); Squamous Epithelial Cell Urine FEW #/LPF (NONE/RARE); WBC Urine 0-2 #/HPF (NONE SEEN)
[2023-09-28] MEDS: NIFEdipine 10 MG CAPSULE 20 MG PO (18:42)
[2023-09-28] MEDS: 0.9 % SODIUM CHLORIDE 1,000 ML 1000 ML IV (18:59)
[2023-09-28 19:53] LABS: Amnisure NEGATIVE (NEGATIVE)
[2023-09-28] MEDS: 0.9 % SODIUM CHLORIDE 1,000 ML 125 ML IV ×2 (20:40→20:43)
[2023-09-28] MEDS: CEFAZOLIN SODIUM/DEXTROSE,ISO 2 GM/50 ML PIGGYBACK IV (22:04)
--- NOTE | 2023-09-28 22:05 | PM.OBHP ---
OB - H&P: HPI History of Present Illness Chief complaint: FBC Contractions : 3 Para: 2 Gestational age based on last menstrual period: 36wks Narrative: 28 yo at 36wks presents in active labor, initial sve was ft/th/high, toco q2-5min, pt states pain has greatly increase 10/, sve 2/70/ballotable, pt has ho ptd at 30wks, ho hypothyroidism History of Present Dating criteria: LMP confirmed by 1st trimester US care: good care Ultrasounds: normal mid trimester US complications: labor Labs Blood type: O (+) positive Rubella: immune RPR/VDLR: nonreactive GBS status: negative HBsAG: negative Review of Systems ROS Status of ROS: 10 or more systems reviewed and unremarkable except as noted in history and below [facility] Medical History (Updated 09/28/23 @ 22:13 by Alexander Godoy DO) labor with delivery ?O60.10X0 - labor with delivery, unspecified trimester, not applicable or unspecified (ICD-10) Social History Smoking status: Never smoker Meds Home Medications and Allergies Home Medications ?Medication ?Instructions ?Recorded ?Confirmed ?Type levothyroxine 75 mcg capsule 75 mcg PO DAILY 03/04/23 03/04/23 History Allergies Allergy/AdvReac Type Severity Reaction Status Date / Time No Known Drug Allergies Allergy Verified 03/04/23 15:10 Exam Constitutional Vital Signs, click to edit/add: Last Vital Signs Temp 98.3 F 09/28/23 18:04 Pulse 116 H 09/28/23 17:51 Resp 16 09/28/23 18:04 BP 132/70 09/28/23 18:42 Documenting provider has reviewed patient's vital signs: yes Common normals: no apparent distress Respiratory Common normals: clear to auscultation bilaterally Cardio Common normals: regular rate and regular rhythm GI Common normals: Normal to inspection, nondistended, normoactive bowel sounds present Extremity Common normals: no clubbing, cyanosis or edema and no calf tenderness Results Labs Labs: Urine 09/28/23 Range/Units 18:10 Urine Color Lt. yellow (YELLOW) Urine Clarity Clear (CLEAR) Urine pH 7.0 (5.0-9.0) Ur Specific [place] 1.010 (1.005-1.025) Urine Protein Negative (NEG/TRACE) mg/dL Urine Glucose (UA) Negative (NEGATIVE) mg/dL OB - A/P Assessment and Plan (1) labor: (2) Intrauterine : Plan iup at 36wks, ptl, ho previous c/s, hypothyroidism-consent obtained, mmc reviewed procedure reviewed, will perform c/s
[2023-09-28] MEDS: LACTATED RINGER'S SOLUTION 1,000 ML 50 ML IV (22:40)
--- NOTE | 2023-09-28 22:54 | PM.ONB ---
Brief Operative Note Date of procedure: 09/28/23 Pre-op diagnosis general: iup at 36wks, ptl, hypothyroidism, previous c/s, ho ptd Post-op diagnosis: same as pre-op Procedure: NAME OF PROCEDURE: [ section ] PROCEDURE: Patient was taken back to the Operating Room where she was given a spinal anesthesia with Duramorph without difficulty. She was prepped and draped in the normal sterile fashion. A Pfannenstiel skin incision was then made 2 cm above the symphysis pubis and carried down to underlying rectus fascia using a Bovie. The fascia was incised in the midline and extended laterally using Dumont scissors. Two Fred clamps were placed on the superior aspect of the fascia and dissected off the underlying rectus muscles. The same was performed on the inferior aspect as well. The muscles were then in the midline. Peritoneum was identified and entered bluntly. The peritoneum was then extended superiorly and inferiorly with good visualization of the bladder. The bladder blade was inserted. A low transverse incision was made on the patient's uterus and extended laterally digitally. The was then delivered atraumatically after the bladder blade was removed in the cephalic position. The cord was clamped and cut. Cord blood was obtained. The was handed off to awaiting team. The patient's placenta was spontaneously delivered. The uterus was then exteriorized. The uterus was cleared of all clots and debris. The bladder blade was reinserted. The patient's uterine incision was closed using #0 Vicryl in a running lock fashion. Excellent hemostasis was assured. The uterus was then returned to the patient's abdomen. The patient's abdomen was copiously irrigated using warm saline. Peritoneal gutters were cleared of all clots and debris. Again excellent hemostasis was assured. The patient's peritoneum was closed using 3-0 Vicryl in a running fashion. The patient's fascia was closed using #0 Vicryl in a running fashion. The patient's skin was closed using 4-0 Vicryl subcuticularly. The patient tolerated the procedure well. Sponge, lap, and needle counts were correct x2. The patient was taken to the Recovery Room in stable condition. Anesthesia: SATHISH Surgeon: Alexander Godoy Family Physician: Mikaela Patel Estimated blood loss (mL): 575 Pathology: other (placenta) Condition: stable Disposition: PACU Urinary Catheter Management Urinary Catheter Management Urethral: Cath placed during this visit: no
--- NOTE | 2023-09-28 22:55 | P.OBPRC_ITS ---
Procedure Pre-op/Post-op diagnoses: Pre-Op/Post-Op Diagnoses Operation Date: 09/28/23 22:00 <No data on this case meets the specified criteria> Procedure: Procedures Operation Date: 09/28/23 22:00 Actual Procedure Side Surgeon p Not Applicable Alexander Godoy DO Insurance Sales Agent: Mikaela Patel Estimated blood loss (mL): 575 Disposition: PACU Anesthesia type: Spinal
[2023-09-28] MEDS: OXYTOCIN/0.9 % SODIUM CHLORIDE 20 UNITS/1,000 ML PLAST..BAG 125 UNIT IV (23:21)
[2023-09-28 23:24] LABS: Basophils Percent Auto 0.3 % (0.2-2.0); Eosinophils Percent Auto 0.3 % (0.9-7.0); Hematocrit 35.8 % (36.0-48.0); Hemoglobin 10.8 g/dL (12.0-16.0); Immature Granulocytes Abs Auto 0.07 10^3/uL (0.00-0.03); Immature Granulocytes Pct Auto 0.4 % (0.0-0.5); Lymphocytes Absolute Auto 1.9 10^3/uL (1.2-3.8); Lymphocytes Percent Auto 11.9 % (20.5-60.0); Mean Corpuscular HGB Conc 30.2 g/dL (29.9-35.2); Mean Corpuscular Hemoglobin 24.4 pg (26.7-34.0); Mean Corpuscular Volume 80.8 fL (81.0-99.0); Monocytes Absolute Auto 0.9 10^3/uL (0.3-0.8); Monocytes Percent Auto 5.5 % (1.7-12.0); Neutrophils Percent Auto 81.6 % (43.0-75.0); Platelet Count 360 10^3/uL (150-450); Red Blood Count 4.43 10^6/uL (4.20-5.40); Red Cell Distribution Width 15.4 % (11.0-15.0); White Blood Count 15.9 10^3/uL (4.0-11.0)
[2023-09-29] VITALS (39 sets, daily range): BP systolic 93–115; BP diastolic 58–70; PULSE 83–120; TEMP 36.5–36.6; O2SAT 97–100
[2023-09-29 01:13] LABS: Amphetamine Screen Urine NEGATIVE (NEGATIVE); Barbiturates Screen Urine NEGATIVE (NEGATIVE); Benzodiazepines Screen Urine NEGATIVE (NEGATIVE); Buprenorphine Screen Urine NEGATIVE (NEGATIVE); Cannabinoid Screen Urine NEGATIVE (NEGATIVE); Cocaine Screen Urine NEGATIVE (NEGATIVE); Methadone Screen Urine NEGATIVE (NEGATIVE); Methamphetamines Screen Urine NEGATIVE (NEGATIVE); Opiate Screen Urine NEGATIVE (NEGATIVE); Oxycodone Screen Urine NEGATIVE (NEGATIVE); Phencyclidine Screen Urine NEGATIVE (NEGATIVE); Tricyclic Antidepressant Urine NEGATIVE (NEGATIVE)
[2023-09-29] MEDS: CEFAZOLIN SODIUM/DEXTROSE,ISO 2 GM/50 ML PIGGYBACK IV (03:57)
[2023-09-29 05:59] LABS: Basophils Percent Auto 0.2 % (0.2-2.0); Eosinophils Percent Auto 0.2 % (0.9-7.0); Hemoglobin 7.8 g/dL (12.0-16.0); Immature Granulocytes Abs Auto 0.07 10^3/uL (0.00-0.03); Immature Granulocytes Pct Auto 0.5 % (0.0-0.5); Lymphocytes Absolute Auto 1.8 10^3/uL (1.2-3.8); Lymphocytes Percent Auto 13.7 % (20.5-60.0); Mean Corpuscular HGB Conc 31.2 g/dL (29.9-35.2); Mean Corpuscular Hemoglobin 24.9 pg (26.7-34.0); Mean Corpuscular Volume 79.9 fL (81.0-99.0); Mean Platelet Volume 9.2 fL (9.5-13.5); Monocytes Absolute Auto 0.8 10^3/uL (0.3-0.8); Monocytes Percent Auto 6.3 % (1.7-12.0); Neutrophils Absolute Auto 10.2 10^3/uL (1.4-6.5); Neutrophils Percent Auto 79.1 % (43.0-75.0); Platelet Count 285 10^3/uL (150-450); Red Blood Count 3.13 10^6/uL (4.20-5.40); Red Cell Distribution Width 15.4 % (11.0-15.0)
[2023-09-29] MEDS: KETOROLAC TROMETHAMINE 30 MG/ML VIAL IVP ×4 (06:44→18:34)
--- NOTE | 2023-09-29 08:10 | PM.OBPN ---
OB - PN: Subj Subjective Patient comments: no complaints [place] status: doing well [place] feeding status: exclusively Exam Constitutional Vital Signs, click to edit/add: Last Vital Signs Temp 97.7 F 09/29/23 04:40 Pulse 85 09/29/23 04:40 Resp 16 09/28/23 23:43 BP 99/58 09/29/23 04:40 Pulse Ox 97 09/29/23 02:10 O2 Del Method Room Air 09/29/23 01:45 Documenting provider has reviewed patient's vital signs: yes Common normals: no apparent distress and oriented x3 General appearance: cooperative, comfortable and well kempt Orientation/consciousness: Yes awake, Yes oriented to person, Yes oriented to place and Yes oriented to time HENMT Common normals: normocephalic Eye Common normals: EOMs intact bilaterally Neck & C-Spine Common normals: full ROM Lymph Lymphatic: no lymphadenopathy noted Chest Common normals: inspection of chest normal Respiratory Common normals: normal respiratory effort, no retractions, no use of accessory muscles and clear to auscultation bilaterally Effort & inspection: able to speak in complete sentences Cardio Common normals: no JVD, regular rate and regular rhythm Rate: regular rate Rhythm: regular rhythm GI Common normals: Normal to inspection, nondistended, normoactive bowel sounds present Palpation: soft Common normals: no CVA tenderness Back & Pelvis Common normals: no CVA tenderness Extremity Common normals: normal to inspection and full ROM Neuro Common normals: oriented x3 Sensorium/orientation: awake, alert, oriented to person, oriented to place and oriented to time Psych Common normals: mental status grossly normal Results Labs Labs: Short CBC 09/28/23 09/29/23 Range/Units 19:00 05:45 WBC 15.9 H 13.0 H (4.0-11.0) 10^3/uL Hgb 10.8 L 7.8 L (12.0-16.0) g/dL Hct 35.8 L 25.0 L (36.0-48.0) % Plt Count 360 285 (150-450) 10^3/uL Urine 09/28/23 Range/Units 18:10 Urine Color Lt. yellow (YELLOW) Urine Clarity Clear (CLEAR) Urine pH 7.0 (5.0-9.0) Ur Specific [place] 1.010 (1.005-1.025) Urine Protein Negative (NEG/TRACE) mg/dL Urine Glucose (UA) Negative (NEGATIVE) mg/dL Urinary Catheter Management Urinary Catheter Management Urethral: Cath placed during this visit: yes Urethral indwelling: Yes Reason for continuing: prolonged immobilization Insertion date: 09/28/23 Insertion time: 21:45 OB - PN: A/P Assessment and Plan (1) labor: (2) Intrauterine : (3) Anemia: Plan - day: 1 Plan: routine postop care Time Spent with Patient Time: Total time spent is greater than 50% in coordination of care (as documented) at patient's floor/unit and/or counseling patient: Total time spent with greater than 50% in coordination of care (as documented) at patient's floor/unit and/or counseling patient: less than 15 minutes
[2023-09-29] MEDS: FERROUS SULFATE 325 MG TABLET PO ×2 (09:17→20:46)
[2023-09-29] MEDS: DOCUSATE SODIUM 100 MG CAPSULE PO ×2 (09:17→20:46)
[2023-09-29] MEDS: ENOXAPARIN SODIUM 40 MG/0.4 ML SYRINGE SUBQ (12:23)
[2023-09-30 00:30] VITALS: TEMP 36.6
[2023-09-30] MEDS: KETOROLAC TROMETHAMINE 30 MG/ML VIAL IVP (00:32)
[2023-09-30 00:42] VITALS: BP 109/63
[2023-09-30] MEDS: IBUPROFEN 400 MG TABLET 800 MG PO ×2 (06:34→14:56)
--- NOTE | 2023-09-30 07:14 | W.PC.ACHO ---
Registration Status: ADM IN Primary Language: Preferred Language: Kiswahili Report given to Damir Shaw RN at 0705. Active Medications Generic Name Dose Route Start Last Admin Trade Name Freq PRN Reason Stop Dose Admin Al Hydroxide/Mg Hydroxide 2,400 mg 09/28/23 22:56 Magnesium Hydroxide 2,400 Mg/10 Ml Oral.Susp PO Q6H PRN Dyspepsia Diphtheria/Pertussis/Tetanus Vacc 0.5 ml 09/30/23 09:00 Adacel Diph,Pertuss(Acell),Tet Vac/Pf 0.5 Ml Adult Syringe IM 09/30/23 09:01 .ONCE ONE Docusate Sodium 100 mg 09/29/23 09:00 09/29/23 20:46 Docusate Sodium 100 Mg Capsule PO 100 mg BID EVER Administration Enoxaparin Sodium 40 mg 09/29/23 11:00 09/29/23 12:23 Enoxaparin Sodium 40 Mg/0.4 Ml Syringe SUBQ 40 mg Q24H EVER Administration Ferrous Sulfate 325 mg 09/29/23 09:00 09/29/23 20:46 Ferrous Sulfate 325 Mg Tablet PO 325 mg BID EVER Administration Sodium Chloride 1,000 mls @ 125 mls/hr 09/28/23 21:30 09/29/23 07:25 Sodium Chloride 0.9% 1,000 Ml IV Infused .Q8H EVER Infusion Promethazine HCl 25 mg/ Sodium 51 mls @ 204 mls/hr 09/28/23 22:56 Chloride IV Q6H PRN Nausea And Vomiting Ibuprofen 800 mg 09/28/23 22:56 09/30/23 06:34 Ibuprofen 400 Mg Tablet PO 800 mg Q8H PRN Administration Pain Ketorolac Tromethamine 30 mg 09/28/23 22:56 09/30/23 00:32 Ketorolac Tromethamine 30 Mg/Ml Vial IVP 09/30/23 22:57 30 mg Q6H PRN Administration Pain Levothyroxine Sodium 88 mcg 09/30/23 11:00 Levothyroxine Sodium 88 Mcg Tablet PO ACB EVER Measles/Mumps/Rubella Vaccine Live 0.5 ml 09/30/23 09:00 Measles,Mumps,Rubella Vacc/Pf 0.5 Ml Vial SQ 09/30/23 09:01 .ONCE ONE Ondansetron HCl 4 mg 09/28/23 22:56 Ondansetron Pf 4 Mg/2 Ml Vial IV Q6H PRN Nausea And Vomiting Ondansetron HCl 4 mg 09/28/23 22:56 Ondansetron 4 Mg Rapdis Tablet PO Q6H PRN Nausea And Vomiting Oxycodone/Acetaminophen 1 tab 09/28/23 22:56 Oxycodone Hcl/Acetaminophen 5mg/325mg PO Q4H PRN Pain Scale 4-6 Oxycodone/Acetaminophen 2 tab 09/28/23 22:56 Oxycodone Hcl/Acetaminophen 5mg/325mg PO Q4H PRN Pain Scale 7-10 Senna 17.2 mg 09/28/23 20:00 Sennosides 8.6 Mg Tablet PO QHS PRN Constipation Simethicone 80 mg 09/28/23 22:56 Simethicone 80 Mg Tab.Chew PO QID PRN Abdominal Distention Respiratory Oxygen Delivery Method Room Air Oxygen Delivery Method Room Air Oxygen Delivery Method Room Air Renal Bladder Pattern Continent Bladder Pattern Continent Bladder Pattern Continent Catheter Urinary Catheter Date of 09/28/23 Insertion [Urethral] Urinary Catheter Time of 21:45 Insertion [Urethral] Date Urinary Catheter Removed 09/29/23 [Urethral] Time Urinary Catheter 09:30 Discontinued [Urethral]
[2023-09-30] MEDS: LEVOTHYROXINE SODIUM 88 MCG TABLET PO (08:00)
[2023-09-30 08:20] VITALS: BP 109/61; PULSE 90; TEMP 36.7
[2023-09-30 08:29] VITALS: BP 109/61
--- NOTE | 2023-09-30 09:00 | PC.NURSE ---
states pain is a 2-3 and voices no complaints, given breastpump order form and discussed plan of care
[2023-09-30] MEDS: DOCUSATE SODIUM 100 MG CAPSULE PO ×2 (10:53→21:18)
[2023-09-30] MEDS: FERROUS SULFATE 325 MG TABLET PO ×2 (10:53→21:18)
[2023-09-30] MEDS: ENOXAPARIN SODIUM 40 MG/0.4 ML SYRINGE SUBQ (12:24)
--- NOTE | 2023-09-30 12:33 | PC.NURSE ---
requests pump to hand pump breasts and given with instructions on same
--- NOTE | 2023-09-30 14:34 | P.OBPN_ITS ---
OB - PN: Subj Subjective Patient comments: no complaints [place] feeding status: exclusively Exam Constitutional Vital Signs, click to edit/add: Last Vital Signs Temp 98.0 F 09/30/23 08:20 Pulse 90 09/30/23 08:20 Resp 14 09/30/23 08:20 BP 109/61 09/30/23 08:20 Pulse Ox 97 09/29/23 02:10 O2 Del Method Room Air 09/30/23 00:30 Documenting provider has reviewed patient's vital signs: yes Common normals: no apparent distress, average body habitus, oriented x3, no limitations, healthy appearing, alert and well nourished General appearance: cooperative Orientation/consciousness: Yes awake, Yes oriented to person, Yes oriented to place and Yes oriented to time HENMT Common normals: normocephalic and head/scalp atraumatic Eye Common normals: PERRL Pupil: accommodation reflex normal Neck & C-Spine Common normals: full ROM Respiratory Common normals: normal respiratory effort Cardio Common normals: regular rate and regular rhythm GI Common normals: Normal to inspection, nondistended, normoactive bowel sounds present and soft to palpation Common normals: no CVA tenderness Back & Pelvis Common normals: no thoracic nor lumbar tenderness Extremity Common normals: normal to inspection, full ROM and no calf tenderness Neuro Common normals: oriented x3, CN's II-XII intact bilaterally, moves all extremities, no focal motor deficits and no sensory deficits noted Psych Common normals: mental status grossly normal, thought process normal, affect normal and speech normal Mood and affect: euthymic mood Urinary Catheter Management Urinary Catheter Management Urethral: Cath placed during this visit: yes, but has since been removed by the nurse Urethral indwelling: Yes Insertion date: 09/28/23 Insertion time: 21:45 Removal date: 09/29/23 Removal time: 09:30 OB - PN: A/P Assessment and Plan (1) labor: Qualifiers: labor trimester: third trimester labor delivery status: with delivery in third trimester Fetus number: single or unspecified fetus Qualified Code(s): O60.14X0 - labor third trimester with delivery third trimester, not applicable or unspecified (2) Intrauterine : (3) Anemia: Assessment and Plan: S/P REPEAT CS AT 35 WEEKS DOING WELL. BABY DOING WELL. AMBULATING, VOIDING, EATING NORMALLY. VOICING NO COMPLAINTS. Qualifiers: Anemia type: iron deficiency Iron deficiency anemia type: unspecified iron deficiency Qualified Code(s): D50.9 - Iron deficiency anemia, unspecified Plan ROUTINE PP AND POST OP CARE Plan - day: 2 Time Spent with Patient Time: Total time spent is greater than 50% in coordination of care (as documented) at patient's floor/unit and/or counseling patient: Total time spent with greater than 50% in coordination of care (as documented) at patient's floor/unit and/or counseling patient: less than 15 minutes
--- NOTE | 2023-09-30 15:18 | PC.NURSE ---
discussed plan of care with pumping and easy feeding, using electric breast pump
[2023-09-30 19:33] VITALS: BP 108/81
[2023-10-01] MEDS: IBUPROFEN 400 MG TABLET 800 MG PO ×2 (00:26→12:56)
[2023-10-01 00:28] VITALS: BP 110/72; TEMP 36.6
[2023-10-01 08:45] VITALS: TEMP 36.1
[2023-10-01] MEDS: DOCUSATE SODIUM 100 MG CAPSULE PO (08:47)
[2023-10-01] MEDS: FERROUS SULFATE 325 MG TABLET PO (08:47)
--- NOTE | 2023-10-01 11:01 | P.DS_ITS ---
DS: Providers Provider Date of admission: 09/28/23 21:24 Primary care physician: Manasa Soni Admitting clinician: Alexander Godoy Attending physician on discharge: Tara Recinos Discharging clinician: Tara Recinos Anticipated date of discharge: 10/01/23 DS: Diagnosis Discharge Diagnosis (1) labor: Assessment and plan: DELIVERED Qualifiers: labor trimester: third trimester labor delivery status: with delivery in third trimester Fetus number: single or unspecified fetus Qualified Code(s): O60.14X0 - labor third trimester with delivery third trimester, not applicable or unspecified (2) Intrauterine : Assessment and plan: DELIVERED (3) Anemia: Assessment and plan: WILL RESOLVE WITH IRON RICH DIET Qualifiers: Anemia type: iron deficiency Iron deficiency anemia type: unspecified iron deficiency Qualified Code(s): D50.9 - Iron deficiency anemia, unspecified Plan DISCHARGE HOME WITH HOME GOING INSTRUCTIONS OB - DS: Summary Hospital Course Hospital Course: UNCOMPLICATED Time spent discussing smoking cessation with patient: 3 to 10 minutes Peripartum Data - Procedures: Procedures Operation Date: 09/28/23 22:00 Actual Procedure Side Surgeon p Not Applicable Alexander Godoy DO Peripartum Data - Vaginal Delivery Procedures: Procedures Operation Date: 09/28/23 22:00 Actual Procedure Side Surgeon p Not Applicable Alexander Godoy DO Complications complications: none Delivery method: section Gender: female Discharge plan: home Status at Discharge Cognitive/behavioral status at discharge: GOOD Functional status at discharge: independent ambulation Overall status at discharge: patient is progressing back to baseline Time Spent with Patient Time attestation: Total time spent providing and/or coordinating discharge services: Time spent: less than 30 minutes Exam Constitutional Vital Signs, click to edit/add: Last Vital Signs Temp 97.0 F L 10/01/23 08:45 Pulse 90 09/30/23 08:20 Resp 16 10/01/23 08:45 BP 110/72 10/01/23 00:28 Pulse Ox 97 09/29/23 02:10 O2 Del Method Room Air 10/01/23 08:45 Documenting provider has reviewed patient's vital signs: yes Common normals: no apparent distress, oriented x3 and alert General appearance: cooperative and comfortable Orientation/consciousness: Yes awake, Yes oriented to person, Yes oriented to place and Yes oriented to time HENMT Common normals: normocephalic and head/scalp atraumatic Eye Pupil: PERRL and accommodation reflex normal Neck & C-Spine Common normals: full ROM and supple Respiratory Common normals: normal respiratory effort Cardio Common normals: regular rate and regular rhythm GI Common normals: Normal to inspection, nondistended, normoactive bowel sounds present Common normals: no CVA tenderness Back & Pelvis Common normals: thoracic and lumbar spine normal to inspection Extremity Common normals: normal to inspection, full ROM and no calf tenderness Neuro Common normals: CN's II-XII intact bilaterally, moves all extremities, no focal motor deficits and no sensory deficits noted Psych Common normals: mental status grossly normal, thought process normal, cooperative and affect normal Discharge Plan Discharge Disposition: Home, Self-Care Condition: Good Assessment: CONDITION GOOD, REQUESTING DISCHARGE, CHART REVIEWED, AFEBRILE, VSS Health Concerns: NONE Plan of Treatment: DISCHARGE HOME, FOLLOW UP IN ONE WEEK FOR INCISION CHECK Discharge Medications: Continued levothyroxine 88 mcg tablet 88 mcg PO QDAY Activity: resume usual activities as tolerated Activity Detail: WALKING ONLY EXERCISE FOR SIX WEEKS, ONLY LIFT BABY, NO SEX FOR SIX WEEKS, MAY SHOWER, NO BATHTUB FOR 4 WEEKS, NO DRIVING FOR 4 WEEKS EXCEPT TO DOCTOR APPOINTMENT PASSENGER Diet: regular diet Print Language: Ecuadorean Patient Instructions: Anemia (DC), (DC) Forms: Portal Instructions Follow Up Appointments: INCISION CHECK IN ONE WEEK Discharge location: HOME
== END 2023-10-01 13:00 | disposition home or self-care (01) | DRG 788 ==
PROVIDERS: Admitting Provider Obstetrics & Gynecology; PCP Family Medicine; Visit Provider Obstetrics & Gynecology
PROC: 10D00Z1 Extraction of Products of Conception, Low, Open Approach (ICD-10-PCS; CPT 59514; principal; 2023-09-28 22:00)
DX: O60.14X0 Preterm labor third trimester with preterm delivery third trimester, not applicable or unspecified (principal); O34.211 Maternal care for low transverse scar from previous cesarean delivery; O99.284 Endocrine, nutritional and metabolic diseases complicating childbirth; E03.9 Hypothyroidism, unspecified; Z3A.36 36 weeks gestation of pregnancy; Z37.0 Single live birth; O99.02 Anemia complicating childbirth; D50.9 Iron deficiency anemia, unspecified
CPT/HCPCS: 36415; 51702; 59025; 80307; 81001; 84112; 85025; 86850; 86900; 86901; 88307; 94667; 94668; 96372; 96374; 96376; 99999